=== PATIENT | female | born 1975 | race Caucasian/White ===

== ENCOUNTER 2016-11-19 14:30 | Emergency (ER) | payer OTHER, MEDICARE ==
[~2016-11-19] VITALS: Ht 170.2 cm; Wt 65.3 kg
[~2016-11-19 14:30] MED LIST: ANTIVERT25 MG PO; GEODON60 MG PO; L-LYSINE500 M2 PO; LAMICTAL100 M2 PO; LAMOTRIGINE100 M2 PO; MIRALAX17 G1 PO; MIRENA1 EACH; OXYBUTYNIN CHLOR5 M2 PO; PROAIR HFA8.5 GM INH; ZIPRASIDONE HCL80 M1 PO
[2016-11-19 14:35] VITALS: BP 118/71
--- NOTE | 2016-11-19 15:29 | ED GENERAL ADULT ---
History of Present Illness General Chief Complaint: General Adult Stated Complaint: HIT HEAD A MONTH AGO/COPELAND,ABD PAIN Source: patient Exam Limitations: no limitations Vital Signs & Intake/Output Vital Signs & Intake/Output Vital Signs Date Time Temp Pulse Resp B/P Pulse O2 O2 Flow FiO2 Ox Delivery Rate 11/19 1435 97.7 79 16 118/71 100 Room Air Allergies Coded Allergies: Penicillins (BLOTCHES, HIVES 04/17/16) Sulfa (Sulfonamide Antibiotics) (HIVES 04/17/16) ampicillin (HIVES 04/17/16) azithromycin (RASH 04/17/16) ciprofloxacin (From CIPRO) (HIVES, VOMITING 04/17/16) sulfamethoxazole (From BACTRIM) (HIVES 04/17/16) trimethoprim (From BACTRIM) (HIVES 04/17/16) Reconcile Medications Lamotrigine (Lamictal) 100 MG TABLET 1 TAB PO BID BIPOLAR Levonorgestrel (Mirena) 1 EACH IUD CONTROL (Reported) Lysine HCl (L-Lysine) 1,000 MG TABLET 1 TAB PO DAILY SUPPLEMENT (Reported) Meclizine (Antivert) 25 MG TABLET 1 TAB PO TID PRN DIZZINESS Oxybutynin Chloride 5 MG TABLET 1 TAB PO TID BLADDER (Reported) Polyethylene Glycol 3350 (Miralax) 17 GM POWD.PACK 1 PAC PO BID GI (Reported) dissolve in water Ziprasidone HCl 80 MG CAPSULE 2 TAB PO QPM BIPOLAR (Reported) Triage Note: PT STATES SHE BUMPED HER HEAD A MONTH AGA AND SHE GETS COPELAND FROM IT ON AND OFF. PT STATES HER STOMACH HURTS AND SHE IS HAVING PROBLEMS MOVING HER BOWELS. PT STATES SHE LIFTED A BOX AND THATS WHEN IT ALL STARTED. Triage Nurses Notes Reviewed? yes Onset: Abrupt Duration: intermittent Timing: recent history Severity: moderate Severity Numbers: 5 : No Patient currently breastfeeds: No HPI: Patient is a 41-year-old female who presents to emergency room saying that 1 month ago while lifting approximately 50 pound object she knows acute onset of periumbilical wall pain in which she states that when exercising sometimes her pain is exacerbated. Patient denies any persistent pain and states that lifting objects also makes symptoms worse. Currently patient denies any pain of her abdominal wall. Last bowel movement was within the last 24 hours no blood no melena noted. Patient has not take any medications for symptoms. Patient also states that approximately one month ago she accidentally hit the top part of her head when since she's been complaining of intermittent headaches relieved with ibuprofen. She denies any loss of consciousness denies any neck pain. Denies any fever chills nausea vomiting blurred vision photophobia tinnitus. Family member is present saying that she is acting at baseline. (PORSHA GARZON) Past History Travel History Traveled to [place] past 21 day No Medical History Any Pertinent Medical History? 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 No (PORSHA GARZON) Review of Systems Review of Systems Constitutional: Reports: no symptoms. EENTM: Reports: no symptoms. Respiratory: Reports: no symptoms. Cardiovascular: Reports: no symptoms. GI: Reports: see HPI, abdominal pain. Genitourinary: Reports: no symptoms. Musculoskeletal: Reports: no symptoms. Skin: Reports: no symptoms. Neurological/Psychological: Reports: see HPI, headache. Hematologic/Endocrine: Reports: no symptoms. Immunologic/Allergic: Reports: no symptoms. All Other Systems: Reviewed and Negative (PORSHA GARZON) Physical Exam Physical Exam General Appearance: no apparent distress, alert Comments: Well-developed well-nourished person in no acute distress HEENT: Normal EENT exam, extraocular motion intact, no nystagmus. Pupils equally round and reactive to light and accommodation. Nose is atraumatic. External auditory canal and Tympanic membranes clear. Pharynx normal. No swelling or edema. Neck: Supple, no lymphadenopathy, normal range of motion without pain or tenderness Back: Nontender, no CVA tenderness. Full range of motion Cardiovascular: Regular rate and rhythms no murmurs rubs or gallops, normal JVP Respiratory: Chest nontender. No respiratory distress.breath sounds clear to auscultation bilaterally Abdomen: Soft, nondistended, no appreciable organomegaly. Normal bowel sounds. No ascites Patient was advised to perform a sit up exercise isometric position in the supine position in which no signs of hernia incarceration or strangulation were noted minimal periumbilical point tenderness of the abdominal wall is noted. No right lower quadrant pain no rebound tenderness no peritoneal signs Extremity: No edema, no calf tenderness to palpation, normal and equal pulses. Neuro: Alert oriented x3, motor sensory normal, cranial nerves II through XII grossly intact. Negative Romberg negative cerebellar testing Skin: No appreciable rash on exposed skin, skin is warm and dry. Psych: Mood and affect is normal, memory and judgment is normal. Core Measures ACS in differential dx? No CVA/TIA Diagnosis: No Severe Sepsis Present: No Septic Shock Present: No (PORSHA GARZON) Progress Differential Diagnoses I considered the following diagnoses in my evaluation of the patient: [SBO, hernia, SMA, ICH, postconcussive syndrome, fracture, incarcerated hernia, strangulated hernia] Plan of Care: Current Medications Sig/Mynor Start time Last Medication Dose Stop Time Status Admin Ibuprofen 600 MG ONCE ONE 11/19 1600 AC (Motrin) 11/19 1601 Patient currently looks well no apparent distress and has no concerns of neurological dysfunction cranial nerves were intact no basilar skull fracture signs patient was strongly advised to follow-up with neurology for concerns of postconcussional syndrome No overt signs of hernia was noted on abdominal wall exam which patient was strongly advised to limit provocative physical movements and follow-up with surgeon Dr. Laughlin for further evaluation treatment. Upon discharge patient looks well no apparent distress and will comply with discharge structures and had no questions (PORSHA GARZON) Initial ED EKG: none (PORSHA GARZON) Departure Departure Disposition: HOME OR SELF CARE Condition: Stable Clinical Impression Primary Impression: Abdominal wall pain Secondary Impressions: Post concussion syndrome Referrals: TOMMIE GONZALEZ,TALISHA DAVE MD,RICHA Allen (PCP/Family) MART GONZALEZ,ELIDA Conner Additional Instructions: As discussed begin [id number] ibuprofen 3 tablets of 200 mg equaling 600 mg every 8 hours for headaches. On Sunday follow-up with neurologist Dr. Smith. If symptoms worsen return to emergency room. Please try to avoid physical activities that worsen your abdominal wall pain If symptoms continue after 1 week of your abdominal wall pain follow-up with surgeon Dr. Laughlin for further evaluation treatment. Departure Forms: Customer Survey General Discharge Information (PORSHA GARZON) PA/PARQUETRY FLOOR LAYER Co-Sign Statement Statement: ED Attending supervision documentation- [] I saw and evaluated the patient. I have also reviewed all the pertinent lab results and diagnostic results. I agree with the findings and the plan of care as documented in the PA's/PARQUETRY FLOOR LAYER's documentation. x I have reviewed the ED Record and agree with the PA's/PARQUETRY FLOOR LAYER's documentation. [] Additions or exceptions (if any) to the PAs/PARQUETRY FLOOR LAYER's note and plan are summarized below: [] (RONEL GONZALEZ,CHARAN) Critical Care Note Critical Care Note Critical Care Time: non-applicable (PORSHA GARZON)
== END 2016-11-19 16:17 ==
LOC: ERH 14:30
DX: R10.33 Periumbilical pain (principal); F07.81 Postconcussional syndrome

== ENCOUNTER 2016-12-05 15:31 | Emergency (ER) | payer OTHER, MEDICARE ==
[~2016-12-05] VITALS: Ht 170.2 cm; Wt 64.9 kg
--- NOTE | 2016-12-05 16:05 | ED INFLUENZA/URI COMPLAINT ---
History of Present Illness General Chief Complaint: Upper Respiratory Sx/Fever Stated Complaint: COUGH FEVER Source: patient, old records Exam Limitations: no limitations Vital Signs & Intake/Output Vital Signs & Intake/Output Vital Signs Date Time Temp Pulse Resp B/P Pulse O2 O2 Flow FiO2 Ox Delivery Rate 12/05 1703 99.0 68 16 119/59 99 Room Air 12/05 1624 Room Air 12/05 1539 98.4 83 20 137/83 97 Room Air ED Intake and Output 12/06 0000 12/05 1200 Intake Total 0 Output Total Balance 0 Intake, Oral 0 Patient 143 lb Weight Allergies Coded Allergies: Penicillins (BLOTCHES, HIVES 04/17/16) Sulfa (Sulfonamide Antibiotics) (HIVES 04/17/16) ampicillin (HIVES 04/17/16) azithromycin (RASH 04/17/16) ciprofloxacin (From CIPRO) (HIVES, VOMITING 04/17/16) sulfamethoxazole (From BACTRIM) (HIVES 04/17/16) trimethoprim (From BACTRIM) (HIVES 04/17/16) Reconcile Medications Albuterol Sulfate (Ventolin Hfa) 90 MCG HFA.AER.AD 2 PUF INH Q4-6 PRN PRN WHEEZING/SHORTNESS OF BREATH Benzonatate (Tessalon Perle) 100 MG CAPSULE 1 CAP PO TID PRN COUGH Lamotrigine (Lamictal) 100 MG TABLET 2 TAB PO QPM BIPOLAR (Reported) Levonorgestrel (Mirena) 1 EACH IUD CONTROL (Reported) Linaclotide (Linzess) 145 MCG CAPSULE 1 CAP PO DAILY CONSTIPATION (Reported) Lysine (L-Lysine) 500 MG TABLET 2 TAB PO DAILY SUPPLEMENT (Reported) [place]-3 Fatty Acids/Fish Oil (Fish Oil 1,200 MG Softgel) 360 MG-1,200 MG CAPSULE.DR 1 CAP PO DAILY SUPPLEMENT (Reported) Oxybutynin Chloride (Oxybutynin Chloride ER) 15 MG TAB.ER.24 1 TAB PO QAM BLADDER (Reported) Saccharomyces Boulardii (Florastor) 250 MG CAPSULE 1 CAP PO DAILY PROBIOTIC ( Reported) Ziprasidone HCl 80 MG CAPSULE 2 TAB PO QPM BIPOLAR (Reported) Triage Note: RECEIVED 41 YO FEMALE C/O YELLOW PRODUCTIVE COUGH X ONE AND A HALF WEEKS WITH 102.7 TEMP 3-4 DAYS AGO. PT WITH HX OF ASTHMA, C/O MILD WHEEZING AND SOB. DIMINISHED BREATH SOUNDS LEFT SIDE. NO C/O CP. Triage Nurses Notes Reviewed? yes : No Patient currently breastfeeds: No HPI: Patient is a 41-year-old female presents complaining of cough. Cough onset approximately 1.5 weeks ago. Cough with yellow sputum production and associated wheezing. Patient has been using her albuterol inhaler with moderate improvement. Fever up to 102.74 days ago. Symptoms are currently mild, have been moderate to severe. Patient denies chest pain. (MATTHIAS AVENDANO) Past History Travel History Traveled to [place] past 21 day No Medical History Any Pertinent Medical History? 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 No (MATTHIAS AVENDANO) Review of Systems Review of Systems Constitutional: Reports: fever (RESOLVED). EENTM: Reports: no symptoms. Respiratory: Reports: cough, short of breath, sputum production, wheezing. Cardiovascular: Denies: chest pain. GI: Denies: abdominal pain, vomiting. Genitourinary: Reports: no symptoms. Musculoskeletal: Reports: no symptoms. Skin: Reports: no symptoms. Neurological/Psychological: Reports: no symptoms. Hematologic/Endocrine: Reports: no symptoms. Immunologic/Allergic: Reports: no symptoms. (MATTHIAS AVENDANO) Physical Exam Physical Exam General Appearance: well developed/nourished, alert, awake Head: atraumatic, normal appearance Eyes: Bilateral: normal appearance, PERRL, EOMI. Ears, Nose, Throat: normal ENT inspection, moist mucous membrane, hearing grossly normal Neck: normal inspection, supple, full range of motion Respiratory: normal breath sounds, no respiratory distress, lungs clear Cardiovascular: regular rate/rhythm Back: normal inspection, normal range of motion Extremities: normal inspection, normal capillary refill, normal range of motion, no edema Neurologic/Psych: no motor/sensory deficits, awake, alert, oriented x 3, normal gait, normal mood/affect Skin: intact, normal color, warm/dry Lymphatic: no anterior cervical roman Core Measures Severe Sepsis Present: No Septic Shock Present: No (MATTHIAS AVENDANO) Progress Differential Diagnosis: influenza, pneumonia, pharyngitis, sinusitis, bronchitis Plan of Care: Orders Procedure Date/time Status XRY-CHEST XRAY, PA AND LATERAL 12/05 1602 Active Diagnostic Imaging: Viewed by Me: Radiology Read. Discussed w/RAD: Radiology Read. Radiology Impression: PATIENT: JENNY COLÓN PRESENT AGE: 41 PATIENT ACCOUNT NO: [id number] : 74 LOCATION: [facility] ORDERING PHYSICIAN: MATTHIAS GALE SERVICE DATE: 12/05/16-1602 EXAM TYPE: RAD - XRY-CHEST XRAY, PA AND LATERAL EXAMINATION: XR CHEST CLINICAL INFORMATION: Cough , wheezing, sputum production and fevers. Assess for pneumonia. COMPARISON: Chest x-ray 10/18/2010. TECHNIQUE: PA and lateral views of the chest were obtained. FINDINGS: The lung paulson are well expanded and appear clear bilaterally. The cardiac silhouette is normal. There are no pleural effusions or pneumothorax. The central pulmonary vasculature is normal. The hilar regions appear normal. There are no acute osseous findings. IMPRESSION: 1. There are no acute cardiopulmonary findings. DICTATED BY: JACOB COHEN MD DATE/TIME DICTATED: 12/05/161631 ELEVATOR SERVICEMAN:CRISPIN DATE/TIME TRANSCRIBED:12/05/161631 CONFIDENTIAL, DO NOT COPY WITHOUT APPROPRIATE AUTHORIZATION. <Electronically signed in Other Vendor System> SIGNED BY: JACOB COHEN MD 12/05/16 1643 Initial ED EKG: none (MATTHIAS AVENDANO) Departure Departure Time of Disposition: 1654 Disposition: HOME OR SELF CARE Condition: Stable Clinical Impression Primary Impression: Viral upper respiratory infection Referrals: TENZIN GONZALEZ,RICHA Allen (PCP/Family) Additional Instructions: Drink plenty fluids and rest. Follow-up with her primary care doctor if no improvement within 1-2 days. Return to the emergency department if worsening of symptoms. Departure Forms: Customer Survey General Discharge Information Prescriptions: Current Visit Scripts Benzonatate (Tessalon Perle) 1 CAP PO TID PRN COUGH #21 CAP Albuterol Sulfate (Ventolin Hfa) 2 PUF INH Q4-6 PRN PRN WHEEZING/SHORTNESS OF BREATH #1 INHAL (HEILBRUNN PA,MATTHIAS) PA/RN FACULTY Co-Sign Statement Statement: ED Attending supervision documentation- [] I saw and evaluated the patient. I have also reviewed all the pertinent lab results and diagnostic results. I agree with the findings and the plan of care as documented in the PA's/RN FACULTY's documentation. [X] I have reviewed the ED Record and agree with the PA's/RN FACULTY's documentation. [] Additions or exceptions (if any) to the PAs/RN FACULTY's note and plan are summarized below: [] (KHUSHBU GONZALEZ,MAY)
[2016-12-05] MEDS ORDERED: LAMICTAL100 M2 PO (16:43)
[2016-12-05] MEDS ORDERED: OXYBUTYNIN CHLO15 M1 PO (16:43)
--- NOTE | 2016-12-05 16:43 | RADIOLOGY REPORT ---
EXAMINATION: XR CHEST CLINICAL INFORMATION: Cough, wheezing, sputum production and fevers. Assess for pneumonia. COMPARISON: Chest x-ray 10/18/2010. TECHNIQUE: PA and lateral views of the chest were obtained. FINDINGS: The lung paulson are well expanded and appear clear bilaterally. The cardiac silhouette is normal. There are no pleural effusions or pneumothorax. The central pulmonary vasculature is normal. The hilar regions appear normal. There are no acute osseous findings. IMPRESSION: 1. There are no acute cardiopulmonary findings.
[2016-12-05] MEDS ORDERED: LINZESS145 MC1 PO (16:44)
[2016-12-05] MEDS ORDERED: FISH OIL 1,2001 EAC1 PO (16:44)
[2016-12-05] MEDS ORDERED: FLORASTOR250 M1 PO (16:45)
[2016-12-05] MEDS ORDERED: TESSALON PERLE100 M1 PO (16:56)
[2016-12-05] MEDS ORDERED: VENTOLIN HFA18 GM INH (16:56)
[2016-12-05 17:03] VITALS: BP 119/59
== END 2016-12-05 17:03 ==
LOC: ERH 15:31
DX: J06.9 Acute upper respiratory infection, unspecified (principal); Z87.891 Personal history of nicotine dependence

== ENCOUNTER 2017-02-27 13:55 | Emergency (ER) | payer OTHER, MEDICARE ==
[~2017-02-27] VITALS: Ht 170.2 cm; Wt 67.1 kg
[~2017-02-27 13:55] MED LIST changes: +FISH OIL 1,2001 EAC1 PO; +FLORASTOR250 M1 PO; +LINZESS145 MC1 PO; +OXYBUTYNIN CHLO15 M1 PO; +TESSALON PERLE100 M1 PO; +VENTOLIN HFA18 GM INH
[2017-02-27 14:01] VITALS: BP 125/77
== END 2017-02-27 14:19 | disposition admitted as inpatient to this hospital (09) ==
LOC: ERH 13:55
DX: R21 Rash and other nonspecific skin eruption (principal); R60.0 Localized edema

== ENCOUNTER 2017-02-28 20:08 | Inpatient (IN) | payer OTHER, MEDICARE ==
[~2017-02-28] VITALS: Ht 165.1 cm; Wt 65.3 kg
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
--- NOTE | 2017-02-28 20:27 | NUR ---
PT AMBULATORY TO [facility]. PT APPEARS ANXIOUS AND HAS RAMBLING SPEECH. SECURITY AT BEDSIDE FOR WANDING
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
--- NOTE | 2017-02-28 21:10 | NUR ---
PT UNWILLING TO CHANGE INTO BLUE SCRUBS WITH MULTIPLE ATTEMPTS MADE. PT STATES "I DON'T NEED TO BE HERE" AND IS TALKING ABOUT HOW "HER FAMILY IS NOT RIGHT FOR HER" AND "SHE DOESN'T NEED A MAN WHO IS NOT NICE TO HER". SITTER AT BEDSIDE.
--- NOTE | 2017-02-28 21:25 | NUR ---
PT RETURNED FROM U/S AND WAS CHANGED INTO BLUE SCRUBS
--- NOTE | 2017-02-28 21:52 | ULTRASOUND REPORT ---
EXAMINATION: US TRIPLEX LOWER EXTREMITY, LEFT CLINICAL INFORMATION: Left lower extremity pain. COMPARISON: None. TECHNIQUE: Color-flow triplex imaging with spectral analysis and compression Doppler were performed on the lower extremity. FINDINGS: Respiratory variation, normal compression and augmented flow are noted throughout the left lower extremity. The visualized common femoral vein, femoral vein, profunda femoral vein, popliteal vein and midcalf peroneal and posterior tibial venous segments show no evidence of deep venous thrombosis. There is no West's cyst. IMPRESSION: Normal triplex scan without evidence of deep venous thrombosis involving the lower extremity.
--- NOTE | 2017-02-28 22:03 | NUR ---
LABS DRAWN AND SENT (2 SST AND LAV)
--- NOTE | 2017-02-28 22:04 | NUR ---
PT'S MOTHER CALLED, SHAYLA, CAN BE REACHED AT [phone].
[2017-02-28 22:07] LABS: ABSOLUTE BASOPHIL COUNT 0 /CUMM (0.0-0.2); ABSOLUTE EOSINOPHIL COUNT 0.1 /CUMM (0.0-0.7); ABSOLUTE GRANULOCYTE CT 7.5 /CUMM (1.4-6.5); ABSOLUTE LYMPH COUNT 1.7 /CUMM (1.2-3.4); ABSOLUTE MONOCYTE COUNT 0.8 /CUMM (0.10-0.60); BASOPHIL % 0.5 % (0.0-2.0); EOSINOPHIL % 0.5 % (0-5); GRANULOCYTE % 74.3 % (42.2-75.2); HEMATOCRIT 31.4 % (37-47); MEAN CORPUSCULAR HGB 31.9 PG (27.0-31.0); MEAN CORPUSCULAR HGB CONC 34.1 G/DL (33.0-37.0); MEAN CORPUSCULAR VOLUME 93.6 FL (81.0-99.0); MEAN PLATELET VOLUME 8.2 FL (7.4-10.4); PLATELET COUNT 238 /CUMM (130-400); RED BLOOD CELL CT 3.35 /CUMM (4.20-5.40); WHITE BLOOD CELL COUNT 10.1 /CUMM (4.8-10.8)
--- NOTE | 2017-02-28 22:52 | NUR ---
PT REMAINS SITTING ON STRETCHER IN HALLWAY TALKING TO HERSELF. SITTER AT BEDSIDE.
--- NOTE | 2017-03-01 02:35 | NUR ---
PT RESTING ON STRETCHER MUMBLING INCOMPREHENSIBLE WORDS. PT APPEARS CALM AT THIS TIME, NO DISTRESS NOTED. SITTERS IN PLACE.
--- NOTE | 2017-03-01 05:26 | NUR ---
PT CONTINUES TO REST ON STRETCHER, STARING AT CEILING AND MUMBLING TO HERSELF. NO APPARENT DISTRESS NOTED. SITTER REMAINS IN PLACE. WILL CONTINUE TO MONITOR
--- NOTE | 2017-03-01 06:39 | NUR ---
PT REMAINS AWAKE ON STRETCHER. PT CONTINUES TO MUMBLE TO HERSELF. NO DISTRESS NOTED. WILL CONTINUE TO MONITOR.
--- NOTE | 2017-03-01 07:48 | NUR ---
PT REMAINS AWAKE AT THIS TIME MUMBLING TO HERSELF ON STRETCHER STATES "I AM SO HUNGRY" BREAKFAST TRAY PROVIDED PT NEEDS TO GIVE URINE SAMPLE WHEN ABLE - PT AND SITTER REMINDED OF SAME AWAITING INITIAL CRISIS EVAL TODAY
--- NOTE | 2017-03-01 12:11 | NUR ---
PT REFUSED EKG AT THIS TIME
--- NOTE | 2017-03-01 13:07 | NUR ---
PT MEDICATED WITH FISH OIL, PROBIOTIC AND LAMICTAL 25MG PER EMAR. PT REFUSED HER DITROPAN, STATING HER DOSE IS HIGHER THAN 5MG. ADVISED PT THAT IN ORDER TO GO TO [facility]PS SHE MUST HAVE AN EKG. PT AGREED TO HAVE IT DONE IN A ROOM, NOT IN HALLWAY. SITTER AY BEDSIDE.
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
--- NOTE | 2017-03-01 14:15 | NUR ---
PT REFUSING EKG AT THIS TIME.
--- NOTE | 2017-03-01 16:00 | NUR ---
CALLED AND GAVE REPORT TO ANALY
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
[2017-03-01 17:11] VITALS: BP 136/74
[2017-03-01 17:29] VITALS: BP 136/74
--- NOTE | 2017-03-01 19:39 | NUR ---
Pt placed on a 1:1 immediately upon admission to the unit, presents on minimal to no insight, poor judgement, paranoid, delusional, minimizing admission and redirctable at times but can appear anxious and agitated with some limit setting. When asked directly denies SI/HI/hallucinations and feels safe on the unit, will not harm self "I'm not like that, I'm never like that" and would inform staff if it changed. Pt was hyperverbal and tangential and rarely allowed this RN to speak and medication reconciliation not complete due to pt abruptly and impulsively exiting assessment interview to call father to pick her up and wanting to leave and not accepting any reasonable explaination, Dr. Hogan updated & 1:[address] Laird's ansering service notified for H&P @ [id number]. Skin is mckeon in complexion and minor bloched intact abroasions noted to face and denied any other alterations to skin not visible.
[2017-03-01 20:02] VITALS: BP 131/68
--- NOTE | 2017-03-01 22:46 | NUR ---
Patient able to orient self to unit and reason for sitter. Patient attempted to elope but was stopped by security. Patient refused PRN medication of neurontin and suspicious of reason for the medication. Patient "annoyed" by sitter presence. Slept most of shift up once for water.
--- NOTE | 2017-03-02 06:13 | NUR ---
THIS PATIENT IS ON A 1 TO 1 FOR ATTEMPTING TO ELOPE AT 1900 ON SUNDAY NIGHT HER FATHER WAS PARTING. SHE IS FOCUSED ON DISCHARGING SOON POSSIBLE. THE PATIENT REMAINED IN BED THROUGHOUT THE NIGHT WITH NO FURTHER ATTEMPTS TO LEAVE. SHE APPEARS TO BE SOMEWHAT LEARNING DISABLED.
[2017-03-02 07:36] VITALS: BP 143/57
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
[2017-03-02 12:45] VITALS: BP 124/77
--- NOTE | 2017-03-02 14:18 | NUR ---
PT VISIBLE IN THE [place] TODAY. PT DID NOT GO TO PLANNING MEETING BUT WAS ABLE TO GO TO A FEW OTHER GROUPS TODAY. SHE HAS SOME INTERACTIONS WITH OTHERS, AND REMAINING SAFE WHILE ON THE UNIT. PT WAS UPSET IN THE BEGINNING OF THE DAY BECAUSE SHE THOUGHT SHE WAS LEAVING BUT ABLE TO STAY IN BEHAVIORAL CONTROL FOR THE MOST PART. PT DENIES THOUGHTS TO HURT HERSELF WHEN ASKED.
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
[2017-03-02 15:42] VITALS: BP 125/73
--- NOTE | 2017-03-02 15:43 | SOCIAL WORKER PROG NOTE PSYCH ---
Social Work Progress Note Progress Note Patient was seen individually. I had been informed that patient wanted to leave, and that she wanted to file a probable cause hearing. I also wanted to complete a social history for this patient. Our discussion started off very well, because patient has known me for many years, and used to call crisis very often. She answered a few basic questions, but, then, said that she did not know why I wanted to know these things, so I stopped the questioning for the social history at that point. I then moved on to her wish to push for a probable cause hearing. At that point patient became even more upset, and said "why can't I just leave ?'...and "I don 't want to sign anything. She was getting agitated, and walked away. I did not wish to make the situation worse at that point, so I let her move away , and she kept her distance the rest of the afternoon, except to stop me briefly to say "there's nothing wrong with me".
[2017-03-02 19:51] VITALS: BP 117/55
--- NOTE | 2017-03-03 04:08 | NUR ---
CONFUSED at times COOPERATIVE WITH CARE NOW. EARLIER IN THE SHIFT wanted to go0 home.
[2017-03-03 08:53] VITALS: BP 107/68
--- NOTE | 2017-03-03 11:48 | CP SOUTH PROGRESS NOTE PSYCH ---
Psych (Inpt) Progress Note Progress Note Include the following elements, when applicable: Involvement in the active treatment of the patient with behavioral observations of the patient and the patient's response to the treatment. Review of the ongoing treatment process in the context of the treatment plan. Indication of how multi-disciplinary staff members are carrying out the treatment plan. Plans for future interventions and recommendations for revision of the treatment plan. Liaison with other physicians/providers. Progress Note: Patient seen chart reviewed d/w nursing staff Overnight patient had episodes of agitation requiring prn haldol/ativan with good effect. She asking about go home "i am fine to leave". She was observed mumbling to self as she walked out of office. speech is pressured and thoughts are disorganized. she denies si/hi or overt psychosis. Medication compliant no se reported does not want any changes to her current regimen. BP continue current tx plan will add prn haldol/ativan for agitation, renew 1;1 for safety.
[2017-03-03 12:12] VITALS: BP 122/69
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
--- NOTE | 2017-03-03 13:43 | NUR ---
PT MONITORED ON ONE TO ONE STATUS FOR SAFETY. SHE IS IRRITABLE AT TIMES AND IS OBSERVED TALKING TO HERSELF. SHE IS COMPLIANT WITH HER MED REGIME AND WHEN ASKED SHE DENIED ANY THOUGHTS OF SUICIDE OR SELF HARM.PT WAAS NOT AGITATED AND DID NOT TRY TO LEAVE THE UNIT
[2017-03-03 16:06] VITALS: BP 127/75
--- NOTE | 2017-03-03 17:54 | NUR ---
PT IS OFTEN IN MILIEU, INTERACTING WELL WITH STAFF. LIMITED INTERACTION WITH PEERS. SLIGHTLY ISOLATIVE/WITHDRAWN. APPEARS TO EXPRESS SOME DELUSIONAL/PARANOID THOUGHTS AND IDEAS. MOOD IS NOT STABLE, COMMUNICATION IS ORGANIZED AND APPEARS NORMAL IN ALL RESPECTS, AND APPETITE IS REDUCED. PT DENIES SI AT THIS TIME.
[2017-03-03 19:52] VITALS: BP 117/61
--- NOTE | 2017-03-04 05:45 | NUR ---
PATIENT WAS AWAKE SEVERAL TIMES DURING THE NIGHT, BUT REFUSED PRN MEDICATION; SHE STATED "NO, NO MEDS, I'M JUST GOING TO GO TO THE BATHROOM, THAT'S ALLOWED ISN'T IT?".
[2017-03-04 07:48] VITALS: BP 131/74
--- NOTE | 2017-03-04 11:23 | NUR ---
PT WAS AGITATED THIS MORNING..TEARFUL..ASKING TO LEAVE AND RESISTIVE TO TAKING MEDS. STAFF ABLE TO CONVINCE PT TO TAKE PRN MEDS WHICH WERE EFFECTIVE AFTER A SHORT TIME. SHE IS SEEN TALKING TO HERSELF AT TIMES AND SHE MADE NUMEROUS CALLS TO HER FAMILY TO ASK THEY COME GET HER.SHE DENIED ANY SUICIDAL THOUGHTS WHEN ASKED
[2017-03-04 12:18] VITALS: BP 134/88
--- NOTE | 2017-03-04 12:37 | CP SOUTH PROGRESS NOTE PSYCH ---
Psych (Inpt) Progress Note Progress Note Include the following elements, when applicable: Involvement in the active treatment of the patient with behavioral observations of the patient and the patient's response to the treatment. Review of the ongoing treatment process in the context of the treatment plan. Indication of how multi-disciplinary staff members are carrying out the treatment plan. Plans for future interventions and recommendations for revision of the treatment plan. Liaison with other physicians/providers. Progress Note: Patient seen chart reviewed d/w nursing staff She has required several prn haldol/ativan for disorganization irritable. Today she was observed mumbling to self, pressured askign about dc, she repeatedly entered writers room several times while radio script writer was with other patients asking about using the phone as her office. She has been compliant with her other medications, denies se. Overnight she was awake numerous times. CF, ASA short hair dressed in hospital gown, +pmr, intrusive, pressured speech, euphoric manic. disorganized, denies overt psychosis or si/hi. I/j both limited BP manic continue to encourage prn haldol ativan which has been having a better effect than geodon, she is overly concerned with weight gain. no changes
[2017-03-04 16:33] VITALS: BP 114/71
--- NOTE | 2017-03-04 17:56 | NUR ---
PT IS COOPERATIVE WITH STAFF AND PEER,S AND COMPLIANT WITH UNIT RULES. BOTH IN AND OUT OF MILIEU, INTERACTING TO AN EXTENT WITH PEERS. APPEARS SLIGHTLY ANXIOUS AT TIMES. MOOD IS NOT STABLE, AFFECT IS EUTHYMIC, BUT CAN APPEAR BRIGHT AT TIMES. COMMUNICATION IS ORGANIZED AND APPEARS NORMAL IN ALL RESPECTS. EXPRESSES ABSTRACT THOUGHTS AND IDEAS ON OCCASSION. APPETITE IS NORMAL. PT DENIES SI AT THIS TIME.
[2017-03-04 19:49] VITALS: BP 120/77
--- NOTE | 2017-03-05 04:46 | NUR ---
SLEPT WELL SITTER WITH IN EYE SIGHT.\
[2017-03-05 07:43] VITALS: BP 123/74
[2017-03-05 12:08] VITALS: BP 119/76
--- NOTE | 2017-03-05 13:25 | NUR ---
PT HAS BEEN COMPLIANT AND COOPERATIVE WITH UNIT RULES THIS SHIFT. PT REMAINS ON 1:1 BUT HAS NOT MADE ANY ATTEMPTS TO ELOPE. PT IS OUT IN THE COMMUNITY, MINIMAL INTERACTION WITH PEERS. PT CAN BE SEEN TALKING TO SELF AT TIME. PT IS ATTENDING GROUPS. PT COMMUNICATION IS CLEAR TODAY. PT DENIES SI THOUGHTS.
[2017-03-05 15:12] VITALS: BP 134/76
--- NOTE | 2017-03-05 19:18 | SOCIAL WORKER PROG NOTE PSYCH ---
Social Work Progress Note Progress Note This Sw met with pt. Pt expressed wanting to leave the hospital. She was offered to sign a probable cause hearing request, however, reported that she did not want to do so and did not want to meet with the unclaimed property officer. Patient quickly moved from topic to topic. Pt stated that she is not in need of counseling or meeting with a social media manager and would like to return to her outpatient psychiatrist. She was unsure of his name, but stated that he works on [employer] in [place]. Pt reported that she felt great, however displayed tearfulness at times of this discussion. She denied SI/HI/AH/VH. Pt reported not having any supports other than her psychiatrist. She stated that she is enjoying groups "but I'd rather go home." She later returned to supports and identified some family, however did not want her father to learn that she was buying a convertable [place]. She stated that, regarding this car and her money , "He would just want to take them away from me." Pt quickly ended this discussion and stated that she felt she had shared everything and there was nothing left to talk about.
[2017-03-05 19:52] VITALS: BP 122/66
--- NOTE | 2017-03-05 20:42 | CP SOUTH PROGRESS NOTE PSYCH ---
Psych (Inpt) Progress Note Progress Note Include the following elements, when applicable: Involvement in the active treatment of the patient with behavioral observations of the patient and the patient's response to the treatment. Review of the ongoing treatment process in the context of the treatment plan. Indication of how multi-disciplinary staff members are carrying out the treatment plan. Plans for future interventions and recommendations for revision of the treatment plan. Liaison with other physicians/providers. Progress Note: PSYCHIATRIST NOTE, 03/05/2017: I discussed this patient's presentation and progress to date, current mental status, treatment and discharge planning with staff team today in the daily morning ITTM and medical student, Hima, and I met with her together in individual session. Patient was pressured in speech and tangential to occasionally loose in expressed thought, lacking insight/denying she has "any" problems/issues but that everything "bad" is a result of her family's intrusions into her own life and self-choice. Patient said she wanted to break up with her current boyfriend but that her family was opposed to this and thereby causing her unnecessary difficulties of which her current admission to hospital is only a part. The one bright spot amongst her family members patient identified as her sister Ni; she is willing to have Ni come in for a meeting with us as soon as this can be arranged. 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 Patient in no way appears sufficiently stable for discharge at this time. Switchover to a more potent neuroleptic and possibly addition of a second primary mood stabilizer would likely be helpful but doubtfully accepted by patient at this time. Patient reports confidence in her psychiatrist in [facility], but told us she had only been seeing him for "two months" now; previously she had treated with Audrey Huggins M.D., of [facility], but may have been between treaters for some time.
--- NOTE | 2017-03-05 21:55 | NUR ---
PT IS VISIBLE ON UNIT, VISITNG WITH BOYFRIEND AND FATHER. AFTER HER VISITORS LEFT, PT SAT QUIETLY IN LOUNGE FOR AWHILE. MINIMAL INTERACTION WITH PEERS OR STAFF. RETREATED TO BED FAIRLY EARLY. COOPERATIVE AND COMPLIANT WITH STAFF. NO COMPLAINTS OR SI REPORTED. PT HAS AN ANXIOUS MOOD AND CONSTRICTED AFFECT.
--- NOTE | 2017-03-06 05:38 | NUR ---
PT QUIET, MOSTLY IN BED FOR EVENING. PT UP A FEW TIMES TO TOILET AND "TO CHECK THINGS OUT". PT SOMEWHAT VIGILANT BUT DENIES PARANOIA.
[2017-03-06 07:33] VITALS: BP 123/76
[2017-03-06 12:16] VITALS: BP 118/71
--- NOTE | 2017-03-06 13:39 | NUR ---
PT STANDING CLOSE TO THE DOOR, TALKING TO HERSELF, YET APPEARS TO HAVE A STABLE MOOD. PT IS NOT AGITATED, SHE IS CALM & COOPERATIVE. NOT ATTENDING ANY GROUPS, PT TENDS TO WANDER THE UNIT AND KEEP TO HERSELF. EATING BREAKFAST AND LUNCH. VS ARE STABLE AND DENIES ANY SI/HI TO THIS MHW.
--- NOTE | 2017-03-06 14:19 | SOCIAL WORKER PROG NOTE PSYCH ---
Social Work Progress Note Progress Note Pt wants to go home, she offers "Im not a bad person, and I didn't do anything wrong", she was calm, and speech was appropriate, she remembers working with me in the past at [facility], and reported "I know you're a friend", as the convsersation went on, she talked about here eagerness to get her car, and reports she will "be safe and responsible when driving", she then laughed and stated "maybe Ill even drive to the beach", and we had a brief conversation of what beach she likes. She has concerns abotu peers on the unit, and it is unclear how she percieves contact with other peers, as she often feels alienated and misunderstood. She was alert, oriented and pleasant. As the conversation ended, she clasped her hands and told me a story aout her grandmother, and how she misses her. She was also whispering answers to herself , of questions she was asking.
--- NOTE | 2017-03-06 14:39 | SOCIAL WORKER PROG NOTE PSYCH ---
Social Work Progress Note Progress Note Pt signed release for outaptient , at this time she will not sign other releases for her sisters or family.
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
[2017-03-06 15:57] VITALS: BP 124/75
--- NOTE | 2017-03-06 18:50 | NUR ---
PT IS COOPERATIVE WITH STAFF AND PEERS, AND COMPLIANT WITH UNIT RULES. OFTEN IN MILIEU, PT IS SLIGHTLY WITHDRAWN. PT APPEARS HIGHLY ANXIOUS AND HAS ATTEMPTED OPEN UNIT DOOR PRESUMABLY TO ELOPE, BUT COULD NOT OPEN IT. MOOD IS STABLE, AFFECT APPEARS EUTHYMIC, COMMUNICATION IS ORGANIZED AND APPEARS NORMAL IN ALL RESPECTS, AND APPETITE IS NORMAL. PT DENIES SI AT THIS TIME.
[2017-03-06 19:53] VITALS: BP 142/82
--- NOTE | 2017-03-07 06:30 | NUR ---
PATIENT WAS BRIEFLY AWAKE, WENT TO BATHROOM, OTHERWISE SLEPT ALL NIGHT.
[2017-03-07 08:08] VITALS: BP 126/81
--- NOTE | 2017-03-07 10:20 | NUR ---
PT IS TENTATIVELY SCHEDULED FOR [place] TODAY [place] [facility] [place] SHE REPORTS AND DEMONSTRATES IMPROVEMENT IN HER MOOD AND ABILITY TO FUNCTIION. PT DENIES ANY THOUGHTS OF SUICIDE OR SELF HARM.SHE IS COMPLIANT WITH HER MED REGIME AND WILL RETURN TO HER PRIVATE THERAPIST AND MD FOR FOLLOW UP. PT IS GIVEN EDUCATION R/T MANAGING HER MOOD D/O AND ON PREVENTING SUICIDE
[2017-03-07 12:29] VITALS: BP 1126/71
[2017-03-07] MEDS ORDERED: LAMICTAL25 M1 PO (13:40)
--- NOTE | 2017-03-07 13:47 | CP SOUTH PROGRESS NOTE PSYCH ---
Psych (Inpt) Progress Note Progress Note Include the following elements, when applicable: Involvement in the active treatment of the patient with behavioral observations of the patient and the patient's response to the treatment. Review of the ongoing treatment process in the context of the treatment plan. Indication of how multi-disciplinary staff members are carrying out the treatment plan. Plans for future interventions and recommendations for revision of the treatment plan. Liaison with other physicians/providers. Progress Note: PSYCHIATRIST NOTE, 03/07/2017: I discussed this patient's slow progress to date, current mental status, treatment and discharge planning with staff team today in the daily morning ITTValeriano and Bailey Anderson LCSW, and I met with her together in individual session. Patient was significantly more tangential, scattered and loose than I found her to be yesterday, 03/06/2017, and at some level she recognized this herself and did not protest not being able to discharge today. 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 However, she did not accept my recommendation that her current maintenance dose of Geodon be increased (from 160mg/day) by 20-40mg a day "until you speak with 'Dr. Steele' [her outpatient psychiatrist, Dr. Abdullahi Casillas]" about the proposed change; we have been leaving messages with his office but received no call back as of today; we will continue our efforts to connect with him. For now, I left a PRN Geodon, 20mg order in case patient changes her mind re a higher dose. We spoke again about the need to organize a family meeting as soon as possible; at this point, patient identified her father as the family member with whom she is willing to meet; Ms. Anderson will try to set up a meeting before end of this week. I feel frustrated that it is not possible to introduce a primary mood stabilizer in addition to the Lamictal, particularly given the necessary very slow upward titration of the latter which is required for safety/avoidance of potentially extremely serious side effects/sensitivity reaction.
--- NOTE | 2017-03-07 13:48 | DISCHARGE SUMMARY REPORT-PSYCH ---
Visit Information Visit Dates/Diagnosis' Admission Date: 03/01/17 Discharge Date: 03/14/17 Reason for Admission: " Psy Discharge Primary Diag: Bipolar I Disorder; MRE Manic with psychotic f. Psy Discharge Secondary Diag: asthma IBS, by hx overactive bladder, by hx Hospital Course Course Allergies: Coded Allergies: Penicillins (BLOTCHES, HIVES 04/17/16) Sulfa (Sulfonamide Antibiotics) (HIVES 04/17/16) ampicillin (HIVES 04/17/16) azithromycin (RASH 04/17/16) ciprofloxacin (From CIPRO) (HIVES, VOMITING 04/17/16) sulfamethoxazole (From BACTRIM) (HIVES 04/17/16) trimethoprim (From BACTRIM) (HIVES 04/17/16) Discharge HBIPS - Tobacco Use Treatment Offered - EtOH/Drug Use D/O Treatment Offered Metabolic Screening - Screen if on a Neuroleptic Medication - Metabolic screening should include: - Blood Pressure, BMI, Glucose or Hgb A1c, & a - Lipid profile from within the past 365 days. Discharge Instructions General Discharge Information Discharge Medications: I called into [facility], [facility], on day of discharge, 03/14/2017: Geodon, 80mg: ii daily at dinnertime; #60 with no refill (clarify thoughts/ stabilize moods) Geodon, 20mg: i PRN racing thoughts, up to 2 doses/day; #60 with no refill (patient currently prescribed 160-200mg/day of Geodon) Lamictal, 25mg: ii daily in AM (50mg/day); #60 with no refill (stabilize mood ) (patient has never been a smoker and does not drink alcohol) patient has sufficient supplies to continue taking: Ditropan, 5mg 3x/day (overactive bladder) probiotic, i cap daily fish oil, 1,050mg daily Feosol, 325mg daily
[2017-03-07 16:06] VITALS: BP 121/62
--- NOTE | 2017-03-07 18:02 | NUR ---
PT IS OFTEN IN MILIEU, INTERACTING MINIMALLY WITH OTHERS. APPEARS HIGHLY ANXIOUS. COOPERATIVE WITH STAFF AND PEERS, AND COMPLIANT WITH UNIT RULES. MOOD IS STABLE, AFFECT APPEARS FLAT/CONSTRICTED, COMMUNICATION IS ORGANIZED AND APPEARS NORMAL IN ALL RESPECTS, AND APPETITE IS NORMAL. PT DENIES SI AT THIS TIME.
--- NOTE | 2017-03-07 19:27 | SOCIAL WORKER PROG NOTE PSYCH ---
See Addendum Social Work Progress Note Progress Note 2:30pm This marketing copywriter met with pt who signed a CAROLE for her outpatient psychiatrist and stated that she was only willing to meet with him and not attend any other form of behavioral health services, such as IOP. She also reported that she utilizes [facility] as a PCP, however, did not have the need to schedule any appointments upon discharge from [facility]. 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 Pt discussed plans to walk back to her home, in [place], upon discharge, despite not having keys to her home. As discussed with Dr. Loredo, ongoing treatment in an inpt setting is indicated. Pt was willing to schedule a family session with her father, who will be contacted to schedule a date/time. Case will be discussed further during team meeting tomorrow.
[2017-03-07 19:34] VITALS: BP 105/69
[2017-03-08 07:57] VITALS: BP 111/67
[2017-03-08 12:22] VITALS: BP 122/75
--- NOTE | 2017-03-08 13:32 | NUR ---
PT IS COMPLIANT AND COOPERATIVE. MOOD IS STABLE WITH A CONSTRICTED AFFECT. PT APPEARS ANXIOUS/DISTRESSED AT TIMES- WILL STATE THAT SHE IS "OKAY" "GREAT". PT DENIES SI AT THIS TIME, NO COMPLAINTS OFFERED. PT NOTED TO BE PACING AROUND UNIT- APPEARS GUARDED. NO OBSERVATIONS OF PT RESPONDING TO INTERNAL STIMULI. PT SPEECH IS RAPID, PRESSURED AND PT CAN BE TANGENTIAL. PT IS PRESENT ON THE UNIT- HAS MINIMAL INTERACTION WITH OTHERS. VITALS ARE STABLE, APPETITE IS GOOD.
[2017-03-08 16:20] VITALS: BP 125/66
--- NOTE | 2017-03-08 16:55 | CP SOUTH PROGRESS NOTE PSYCH ---
Psych (Inpt) Progress Note Progress Note Include the following elements, when applicable: Involvement in the active treatment of the patient with behavioral observations of the patient and the patient's response to the treatment. Review of the ongoing treatment process in the context of the treatment plan. Indication of how multi-disciplinary staff members are carrying out the treatment plan. Plans for future interventions and recommendations for revision of the treatment plan. Liaison with other physicians/providers. Progress Note: PSYCHIATRIST NOTE, 03/08/2017: I discussed this patient's slow progress to date, current mental status, treatment and discharge planning with staff team today in the daily morning ITTValeriano and Bailey Anderson LCSW, and I met with her in individual session. Patient was even more pressured and labile today than she had been when in met with her yesterday; however, she is still resisting any increase or change to her Geodon (and has not yet utilized any PRN's of Geodon) until I speak with her "Dr. Steele" and I have not been able to connect with him yet despite leaving messages on his voicemal (he may be away) but will continue to try going forward. The difficulty is that patient's condition appears to possibly be worsening while she at the same time sees this herself but refuses any changes/interventions with regard to medications without consultation from her outpatient psychiatrist. We again discussed a family meeting and patient determined that the family member she wishes to meet with first is her biological father; this is being set up for tomorrow, 03/09/2017. For some reason related to her sister Ni's behavior while visiting patient during this admission the latter does not want her to be part of a family meeting (after having told me Ni was "the only one" she actually wanted to see).
--- NOTE | 2017-03-08 17:44 | NUR ---
PT IS COOPERATIVE WITH STAFF AND PEERS, AND COMPLIANT WITH UNIT RULES. OFTEN IN MILIEU, THOUGH STAYING IN PERIPHERY. LIMITED INTERACTION IWHT OTHERS. APPEARS ANXIOUS AT TIMES. MOOD IS STABLE, AFFECT APPEARS NORMAL IN ALL RESPECTS, COMMUNICATION IS ORGANIZED AND APPEARS NORMAL IN ALL RESPECTS, AND APPETITE IS NORMAL. PT DENIES SI AT THIS TIME.
--- NOTE | 2017-03-08 18:50 | SOCIAL WORKER PROG NOTE PSYCH ---
Social Work Progress Note Progress Note 5pm Dr. Loredo and this policy writer sales met with pt. Pt was informed that her father has agreed to attend a family meeting, which is scheduled for 2pm on 03/09/17. Pt was in agreement with this. Pt reported, "I'm alot better. I'm calmer." Pt discussed multiple topics, however appeared to focus on concerns about people "not treating me right" including interpersonal stressors. Pt was not willing to involve her sister, Ni, in her treatment at this time reporting that she was angry with her due to a situation she recently experienced in which she did not feel supported. Pt also discussed medications with Dr. Loredo.
[2017-03-08 19:56] VITALS: BP 117/62
--- NOTE | 2017-03-09 05:35 | NUR ---
PT QUIET, MOSTLY IN BED ON EVENINGS. PT UP X 1 IN THE NIGHT TO THE TOILET. PT SOMEWHAT VIGILANT BUT DENIES PARANOIA.
[2017-03-09 07:42] VITALS: BP 103/55
--- NOTE | 2017-03-09 11:10 | NUR ---
PT IS COOPERATIVE, COMLPIANT AND CALM. PT HAS NOT BEEN HYPERACTIVE/PACING THIS AM SHIFT, SEEN ON PREVIOUS SHIFTS. PT HAS BEEN ATTENDING GROUPS, HOWEVER, SHE DID NOT ATTEND PLANNING MEETING. PT TOOK A SHOWER THIS MORNING AND DRESSED IN HER STREET CLOTHES. PT HAS MINIMAL INTERACTIONS WITH PEERS, MOSTLY SEEN TALKING TO HERSELF. VS ARE ARE STABLE AND DENIES ANY SI/HI TO THIS MHW.
[2017-03-09 12:23] VITALS: BP 119/69
[2017-03-09 16:13] VITALS: BP 115/73
--- NOTE | 2017-03-09 16:42 | SOCIAL WORKER PROG NOTE PSYCH ---
Social Work Progress Note Progress Note 03/09/17, 1:05pm Dr. Loredo and this press writer met with pt and her father for a family meeting. Pt's father appeared concerned for the pt's overall well-being, however, tension was evident between pt and her father regarding his involvement. Pt inquired about a discharge date, and was informed that attempts are being made to reach her outside psychiatrist, "Dr. Conner." She is reluctant to make any medication changes at this time. * Community resource contacts and liaison with other clinicians/agencies
--- NOTE | 2017-03-09 16:46 | CP SOUTH PROGRESS NOTE PSYCH ---
Psych (Inpt) Progress Note Progress Note Include the following elements, when applicable: Involvement in the active treatment of the patient with behavioral observations of the patient and the patient's response to the treatment. Review of the ongoing treatment process in the context of the treatment plan. Indication of how multi-disciplinary staff members are carrying out the treatment plan. Plans for future interventions and recommendations for revision of the treatment plan. Liaison with other physicians/providers. Progress Note: PSYCHIATRIST NOTE (FAMILY MEETING), 03/09/2017: I discussed this patient's slow progress to date, current mental status, treatment and discharge planning with staff team today in the daily morning ARMAAN and Bailey Anderson LCSW, and I also met with patient and latter's biological father in a family sesssion. I have continued to attempt to reach and have been leaving messages on his answering machine for patient's private psychiatrist, Dr. Abdullahi Casillas (telephone #: [phone]--patient knows her doctor's number accurately and completely solely from memory alone), through this afternoon but he may still be away from his office; I will resume attempts on ; until/unless I reach "Dr. Steele" patient is still reluctant to make any changes to her current (?longtime) psychotropic medication regimen; I would like to consider increasing current dose of Geodon or switching to another neuroleptic of higher potency and/or add another mood stabilizer, Tegretol or [place] (not Depakote given that patient is currently titrating up on dose of Lamictal). Father appeared sincerely interested in his daughter's welfare and safety and future opportunities for living a happier life, but had a tendency ( which very much irritated patient) of repeating himself or stressing things over and over again. In some ways, his perseverative presentation was remisicent of his daughter's recent/current behavior here in hospital. Father and daughter more or less took turns wanting the meeting to be concluded or continued until finally both (and we) could agree. During this meeting, father emphasized his caution to his daughter about both of her recent male relationships, one with a younger possibly anti-social exploiter and the other "with a man twice her age...he's over 80!" Patient has expressed her ambivalent feelings concerning both of these men but seemed to still be upset with her father's hard-handed sort of intervention and condemnation and pointed out more than once the multitude of "problems" within their own (her and father's) family.
--- NOTE | 2017-03-09 17:40 | NUR ---
PT IS COOPERATIVE WITH STAFF AND PEERS, AND COMPLIANT WITH UNIT RULES. OFTEN IN MILIEU, THOUGH STAYING IN PERIPHERY, WITH LIMITED INTERACTION WITH OTHERS. MOOD IS STABLE, AFFECT APPEARS FLAT/CONSTRICTED. PT HAS BEEN OBSERVED TALKING TO SELF AT TIMES. APPEARS HIGHLY ANXIOUS WHILE IN MILIEU. COMMUNICATION IS ORGANIZED, THOUGH APPEARS SLIGHTLY RAPID. APPETITE IS NORMAL. PT DENIES SI AT THIS TIME.
[2017-03-09 19:40] VITALS: BP 123/73
[2017-03-10 07:36] VITALS: BP 114/74
[2017-03-10 11:57] VITALS: BP 127/70
--- NOTE | 2017-03-10 12:51 | NUR ---
PT IS PRESENT WITHIN THE MILIEU AND SITS IN THE LOUNGE CLOSE TO THE NURSES STATION/FISH TANK FREQUENTLY AND LOOKS/APPEARS VISIBLY TENSE E.G., GRIMACED AND CONSTRICTED AFFECT, CLOSE BODY LANGUAGE, SPEAKING SOFTLY AND RAPIDLY TO SELF, DID ATTEND GROUPS TODAY WELL AND REPORTED THE GOAL WAS TO MAKE PLANS FOR DISCHARGE (HAS NO INSIGHT FOR REASON OR NEED CURRENTLY FOR ADMISSION) AND WENT TO FOCUS GROUP WELL.
--- NOTE | 2017-03-10 14:46 | CP SOUTH PROGRESS NOTE PSYCH ---
Psych (Inpt) Progress Note Progress Note Include the following elements, when applicable: Involvement in the active treatment of the patient with behavioral observations of the patient and the patient's response to the treatment. Review of the ongoing treatment process in the context of the treatment plan. Indication of how multi-disciplinary staff members are carrying out the treatment plan. Plans for future interventions and recommendations for revision of the treatment plan. Liaison with other physicians/providers. Progress Note: Disorganized, paranoid, talking to herself. Stated that people are saying, things about babies, I can leave, theyre not nice to me how they think, I just want my dad to come here,they arent being nice to the doctor here, I just called my doctor he knows Im well I can leave Per staff has been asking to leave, to call her doctor and sign out, and needs frequent redirection. MSE: young woman, fair grooming, blunted affect, psychomotor agitation gets up quickly, talking to herself, fidgets. Incoherent, disorganized, perseverative thinking process. Mood neutral, affect blunted. Unable to answer questions rationally due to preoccupation with leaving, repeats herself frequenrlty. Mumbling to herself. Insight to current situation is absent, judgment poor. Plan: attempted to educate her regarding need for tx, regarding medication changes and she continues to refuse.
[2017-03-10 15:35] VITALS: BP 136/78
[2017-03-10 20:38] VITALS: BP 129/72
--- NOTE | 2017-03-10 21:50 | NUR ---
PT IS VISIBLE ON UNIT, SITTING IN LOUNGE AND VISITING WITH BOYFRIEND AND FATHER. PT APPEARS VISIBLLY ANXIOUS, SHAKING HER LEGS AND PACING UNIT. AT ONE POINT IN THE EVENING, PT REPORTED WANTING TO GO HOME AND TRYING DOORS. OVERALL COOPERATIVE AND COMPLIANT WITH STAFF. MINIMAL INTERACTION WITH PEERS. NO SI REPORTED. PT HAS AN ANXIOUS MOOD AND IRRITABLE/CONSTRICTED AFFECT.
--- NOTE | 2017-03-11 06:08 | NUR ---
PATIENT SLEPT ALL NIGHT.
[2017-03-11 08:05] VITALS: BP 116/62
--- NOTE | 2017-03-11 11:23 | CP SOUTH PROGRESS NOTE PSYCH ---
Psych (Inpt) Progress Note Progress Note Include the following elements, when applicable: Involvement in the active treatment of the patient with behavioral observations of the patient and the patient's response to the treatment. Review of the ongoing treatment process in the context of the treatment plan. Indication of how multi-disciplinary staff members are carrying out the treatment plan. Plans for future interventions and recommendations for revision of the treatment plan. Liaison with other physicians/providers. Progress Note: Stated that her sister, father and boyfriend visited yesterday and they had a nice visit. She was more pleasant and less acutely irritable initially. Disorganized, flight of ideas, said for example, I didnt hurt him, I had a cold sore and it didnt go away, I dont want to talk about it anyomre, its always washed my hands, thats why I always want to say goodbye, I dont want to , I just dont like that. Not amenable to reality testing, not amenable to taking different or higher doses of meds. Did sleep overnight. MSE: young woman, fair grooming, more full affect today, mood is neutral. Psychomotor agitation less this morning than it was yesterday. She appears internally preoccupied much of the day, tense. Speech rapid rate, regular volume and rhythm. Incoherent, disorganized, perseverative thinking process. Mood neutral, affect more full today. Unable to answer questions appropriately, goes on in illogical topics. Insight to current situation is absent, judgment poor. Plan: Acutely psychotic, labile; clinically unchanged. Attempted to educate her regarding need for tx, regarding medication changes and she continues to refuse.
[2017-03-11 12:14] VITALS: BP 113/67
--- NOTE | 2017-03-11 12:22 | NUR ---
PT IS MOSTLY SITTING BY THE NURSES STATION/NEXT TO THE FISH TANK AND APPEARS TENSE, ANXIOUS, GUARDS WITH ARMS AND LEGS CROSSED, TALKING TO SELF AND WHEN SHE CONVERSES WITH STAFF IS PRESSURED, HYPERVERBAL WITH PARANOID CONTENT. DID NOT ATTEND PLANNING MEETING HOWEVER, WENT TO FOCUS GROUP WHERE THERE WAS MINIMAL INTERACTION, PASSIVE ENGAGEMENT BUT TOLERANT OF THE PROCESS OF THE GAME ACTIVITY, + APPETITE.
[2017-03-11 15:57] VITALS: BP 130/54
[2017-03-11 20:12] VITALS: BP 114/62
--- NOTE | 2017-03-11 23:07 | NUR ---
PT HAD VISITORS EARLIER IN THE DAY THAT WERE EVENTUALLY ASKED TO LEAVE DUE TO VARIOUS REASONS. SHE HAD ALSO GOTTEN IRRITATED WITH HER FATHER AND DEMANDED THAT HE LEAVE. PT HAS BEEN OBSERVABLY ANXIOUS, JUMPY AND PARANOID. SHE CAN OFTEN BE SEEN TALKING TO HERSELF IN THE CORNER OF THE ROOM. PT HAS DENIED ANY THOUGHTS OF SI WHEN ASKED.
--- NOTE | 2017-03-12 05:35 | NUR ---
PT WAS UP X 1 IN THE NIGHT AND THEN UP AT 0500 FOR THE DAY.
[2017-03-12 07:35] VITALS: BP 134/70
[2017-03-12 12:33] VITALS: BP 128/66
--- NOTE | 2017-03-12 13:58 | NUR ---
PT VISIBLE IN THE MILIEU TODAY. HER GOAL WAS TO MAKE PLANS FOR DISCHARGE, AND TALK TO DR. GARCIA. SHE HAS BEEN PARTICIPATING IN GROUPS THROUGHOUT THE DAY. SHE DOES NOT INTERACT MUCH WITH PEERS, BUT HAS BEEN COOPERATIVE WITH STAFF DIRECTION. PT DENIES THOUGHTS TO HURT HERSELF WHEN ASKED.
[2017-03-12 15:57] VITALS: BP 113/71
[2017-03-12 16:37] VITALS: BP 113/71
--- NOTE | 2017-03-12 16:56 | SOCIAL WORKER PROG NOTE PSYCH ---
Social Work Progress Note Progress Note Pt is pleasant, she reports the meeting with her Father didn't go so well, and then adds, "what's the big deal some people want to talk to family and some don' t I have rights, and I don't need them in my life all the time". Pt reports she wants to go home, she is denying, si/hi, there has been improvement in regards to her level of anxiety and psychotic symptomology present, state since admission. She is usually perseverative and repetative.
--- NOTE | 2017-03-12 18:46 | NUR ---
PT IS CALM, COOPERATIVE WITH STAFF AND PEERS, AND COMPLIANT WITH UNIT RULES. OFTEN IN MILIEU, THOUGH STAYING TO SELF MOSTLY. IS IRRITABLE AT TIMES, BUT THIS APPEARS TO PASS QUICKLY. MOOD IS STABLE, AFFECT APPEARS FULL RANGE BUT CAN BE LABILE AT TIMES. COMMUNICATION IS ORGANIZED AND APPEARS NORMAL IN ALL RESPECTS. APPETITE IS NORMAL IN ALL RESPECTS. PT DENIES SI AT THIS TIME.
[2017-03-12 20:05] VITALS: BP 112/62
--- NOTE | 2017-03-12 20:28 | CP SOUTH PROGRESS NOTE PSYCH ---
Psych (Inpt) Progress Note Progress Note Include the following elements, when applicable: Involvement in the active treatment of the patient with behavioral observations of the patient and the patient's response to the treatment. Review of the ongoing treatment process in the context of the treatment plan. Indication of how multi-disciplinary staff members are carrying out the treatment plan. Plans for future interventions and recommendations for revision of the treatment plan. Liaison with other physicians/providers. Progress Note: PSYCHIATRIST NOTE, 03/12/2017: I discussed this patient's slow progress to date, current mental status, treatment and discharge planning with staff team today in the daily morning ITTM and also met with her again myself in individual session; we spent some time going over the family meeting with her biological father on 03/09/2017; she is still angry with him for his not being more forthcoming with assisting her to organize an operable motor vehicle for her use; apparently, he has at least two vehicles at his disposal but has failed to provide her with the keys/access to any of these (either prior to the family meeting or since); patient contends that this prevents her from shopping or even getting to her outpatient treatment appointments going forward. Patient continues to be mildly pressured and scattered, disjointed and occasionally loose in expressed thought, though improving; she is completely denying acute suicidality or homicidality at this point; I am not sure how much better she is going to get here in hospital, particularly if she continues to refuse any increase in Geodon or switch to or addition of a second agent. I received a voicemail message on my office telephone from over the weekend from Dr. Casillas's office staff; his sound assistant said he was still away from the office but asked her to forward me the message that he is not completely satisfied with patient's current medication regimen ( as patient has insisted to me) and would like me to initial any changes I believe would be beneficial to his patient and that we would speak together at a future date; I went over this today with patient, but she continued her reluctant attitude towards making ANY change in her current medication regimen; I told her there is a PRN dose of Geodon, 20mg, available to her and encouraged her to utilize it to see if it helps slow down and organize her thinking and stabilize her moods any further.
--- NOTE | 2017-03-13 06:11 | NUR ---
PT SLEPT AFTER GEODON 20 PRN AT 2230. PT'S FATHER VISITED AND HE WAS CLOSELY MONITORED ON EVENINGS.
[2017-03-13 08:03] VITALS: BP 102/56
[2017-03-13 12:30] VITALS: BP 120/56
--- NOTE | 2017-03-13 13:36 | NUR ---
PT IS COMPLIANT AND COOPERATIVE. MOOD IS STABLE WITH A CONSTRICTED AND EUTHYMIC AFFECT. PT APPEARS ANXIOUS AT TIMES AND APPEARS TO BE RESPONDING TO AH. PT NOTED TO BE USING HAND WAIST PLEATER VERU FEQUENTLY. PT DENIES SI AT THIS TIME, NO COMPLAINTS OFFERED. PT TENDS TO STAY TO SELF WHEN IN COMMUNITY- HAS MINIMAL INTERACTION WITH OTHERS. PT SPEECH IS PRESSURED AND RAPID AND PT HAS TROUBLE STAYING ON TOPIC- WILL JUMP FROM ONE TO ANOTHER. PT IS ATTENDING GROUPS. VITALS ARE STABLE, APPETITE IS GOOD.
--- NOTE | 2017-03-13 14:50 | SOCIAL WORKER PROG NOTE PSYCH ---
Social Work Progress Note Progress Note 2:25pm This telegraphic typewriter mechanic met with pt. Pt reported "I'm good", she denied SI/HI/AH/VH. She stated that she is not interested in attending any treatment other than meeting with her psychiatrist, Dr. Casillas with whom she has an appointment later this month (exact date/time unknown). She was agreeable to this telegraphic typewriter mechanic contacting her psychiatrist in attempt to schedule an earlier appointment. Pt was informed by this telegraphic typewriter mechanic that her mother left a vm inquiring about a discharge date. Pt stated that she did not wish to sign a CAROLE for her mother and did not want any information shared with her mother. A vm was left for her psychiatrist with a call back number requesting to schedule an appointment. Pt did not identify any barriers (including scheduling) to meeting with her psychiatrist.
--- NOTE | 2017-03-13 15:19 | CP SOUTH PROGRESS NOTE PSYCH ---
Psych (Inpt) Progress Note Progress Note Include the following elements, when applicable: Involvement in the active treatment of the patient with behavioral observations of the patient and the patient's response to the treatment. Review of the ongoing treatment process in the context of the treatment plan. Indication of how multi-disciplinary staff members are carrying out the treatment plan. Plans for future interventions and recommendations for revision of the treatment plan. Liaison with other physicians/providers. Progress Note: PSYCHIATRIST NOTE, 03/13/2017: I discussed this patient's slow progress to date, current mental status, treatment and discharge planning with staff team today in the daily morning ITTM. She had taken a single PRN dose of Geodon, 20mg, at about 10:30pm last evening, and staff reported that she had slept well after that; when I spoke with patient today she told me that the PRN had helped her calm herself down after frustrating interactions with members of her family last evening ("but otherwise I don't need a PRN, only for my family [upsetting her]." She agreed to me prescribing a PRN dose or two a day of the Geodon "just in case I need it because my family is making me crazy." Patient had been doing well with the upward titration in dose of Lamictal; it is almost a week since she went up to 50mg/day, and there have been no adverse effects/reactions to date; patient is willing to hav her dose of Lamictal increased to 75mg/day as of tomorrow morning , 03/14/2017. Patient was in good spirits when I saw her; in fact, she had just completed Spirituality Group; patient told me about her strong katie and that she had a small Bible at home given to her by her grandmother from which she frequently reads but was a bit concerned that she didn't know where she had "left off;" I offered that the Bible was really something one could start from anywhere within it and gain insight and strength if they had the katie. The plan at this time is for patient to be discharged home tomorrow AM with f/u appointment for Dr. Casillas who said that she had actually seen him "twice" so far but was willing to continue with her.
[2017-03-13 16:41] VITALS: BP 124/64
--- NOTE | 2017-03-13 18:17 | NUR ---
PT IS COOPERATIEV WITH STAFF AND PEERS, AND COMPLIANT WITH UNIT RULES. OFTEN IN MILIEU, THOUGH STAYING IN PERIPHERY, PT IS OFTEN BY SELF - SLIGHTLY WITHDRAWN/ISOLATIVE. MOOD IS STABLE, AFFECT APPEARS FULL RNAGE, BUT CAN BE LABILE/TEARFUL AT TIMES. COMMUNICATION IS ORGANIZED AND APPEARS NORMAL IN ALL RESPECTS, AND APPETITE IS NORMAL. PT DENIES SI AT THIS TIME.
[2017-03-13 19:47] VITALS: BP 118/66
--- NOTE | 2017-03-14 07:11 | NUR ---
PT UP X 1 FOR A LONG TIME IN THE BATHROOM WASHING HANDS AND USING LARGE QUANTITIES OF PAPER. PT ANXIOUS, VIGILANT.
[2017-03-14 08:08] VITALS: BP 116/58
[2017-03-14] MEDS ORDERED: GEODON20 M1 PO (10:28)
[2017-03-14] MEDS ORDERED: ZIPRASIDONE HCL80 M1 PO (10:28)
--- NOTE | 2017-03-14 11:16 | SOCIAL WORKER PROG NOTE PSYCH ---
Social Work Progress Note Progress Note This keno writer/runner called Dr. Casillas's office and an appointment has been scheduled for Thursday, April 06, 2017 at 1:45pm. Pt stated that she has an appointment scheduled but was unsure of the date/time which she has at home. This appointment could not be confirmed during the call to Dr. Casillas's office today. Dr. Loredo and this keno writer/runner met with pt. Pt accepted the appointment with Dr. Casillas and was in agreement with outpt treatment with that provider. Pt was recommended to obtain a wrapper caser, but was not willing to do so at this time. Pt will call to inquire about an earlier appointment with Dr. Casillas. She is not interseted in pursuing any additional outpt treatment. Pt will call her sister, Jorge, to coordinate transportation home.
[2017-03-14] MEDS ORDERED: LAMICTAL25 M1 PO (11:20)
--- NOTE | 2017-03-14 11:31 | NUR ---
PT IS SCHEDULED TO LEAVE TODAY, ALREADY MET WITH DR. GARCIA WITH HER CREDIT DEPARTMENT MANAGER. MOOD IS STABLE WITH BRIGHT/FULL RANGE AFFECT, INTERACTS WITH PEERS AND STAFF AND REMAINS IN CONTROL. WHEN ASKED DIRECTLY DENIES SI/HI/HALLUCINATIONS, NO ISSUES OR COMPLAINTS REPORTED OR OBSERVED, CALM, COOPERATIVE, PLEASANT AND RESPECTFUL, MEDICATION & TREATMENT COMPLIANT. REPORTS AN OVERALL IMPROVEMENT IN MOOD/MENTAL STATUS, + SLEEP AND APPETITE. PT HAS A + UNDERSTANDING OF NEED AND MEDICATION REGIMENT AND VERBALIZES UNDERSTANDING RE: DISCHARGE FOLLOW-UP PLAN. PT RESOURCE GUIDE AND W-10 REVIEWED AND NO QUESTIONS OR CONCERNS. INFORMATION PACKETS RE: SI AND DEPRESSION GIVEN TO PT WELL.
--- NOTE | 2017-03-14 12:17 | CP SOUTH PROGRESS NOTE PSYCH ---
Psych (Inpt) Progress Note Progress Note Include the following elements, when applicable: Involvement in the active treatment of the patient with behavioral observations of the patient and the patient's response to the treatment. Review of the ongoing treatment process in the context of the treatment plan. Indication of how multi-disciplinary staff members are carrying out the treatment plan. Plans for future interventions and recommendations for revision of the treatment plan. Liaison with other physicians/providers. Progress Note: PSYCHIATRIST NOTE (DISCHARGE), 03/14/2017: I discussed this patient's slow progress to date, current mental status, treatment and discharge plans with staff team today in the daily morning ITTM and met with her again myself in individual session prior to discharging her to her home in [facility], and to resume her outpatient treatment with Dr. Casillas; the doctor will be returning from vacation on 03/26/2017 and patient plans to call his office for an earlier appointment and keep in touch with Yodit in his office in the meantime; as it stands now, she has a visit with "Dr. Steele" scheduled for 04/06/2017 at 1:45pm. We have repeatedly tried to get patient to accept aftercare in an [facility] ([facility] or [facility] [place]--she resides in [place] [facility]), at least until her private psychiatrist returns, but she has consistently and firmly declined this recommendation from us and firmly refused to consider that recommended option at this time; we did also try to refer her for [facility] [place] case mangement services and pointed out some of the various ways in which a case sealer could help her maintain her functional independence in the community. Patient has also refused to consider ANY alteration in her psychotropic regimen, increase in Geodon dose, addition of a mood stabilizer, or switch to another neuroleptic; however, she has agreed to accept a prescription for PRN Geodon to be taken for disorganized and/or racing thoughts or sleep disturbance related to same. Unfortunately, though she has been getting little by way of objective, concrete help from anyone in her family, she is now being inundated with unsolicited opinions about various aspects of her life which are only serving to threaten destabilization when she is beginning to organize herself and make practical priorities, such as that she needs a motor vehicle help her to obtain groceries, get to her outpatient appointments, etc.; living where she does in [place], [place]., patient does not have easy access to adequate transit services. During our family meeting with patient and her father we tried to gain his cooperation in helping patient to be restored with a car; it was established that he had the keys to two different vehicles but would not provide her with access to either one, nor suggest any way(s) in which she could take care of vital day-to-day activities without a motor vehicle. Today, the family had difficulty even organizing a ride home for patient though her sisters Ni and Jorge and her father where all aware of her discharge and next for transportation home. Despite the above (and other evidence of wider extended family chaos and undermining of her efforts at independent living/self-sustainability) patient has continued to slowly organize herself, is no longer as scattered in thinking, better able to focus and plan, not expressing any evidence of markel thought disorder (perhaps some mild guardedness/mild paranoia which is likely close to baseline and contributed to by the actual behavior of various family members who interact with her), still mildly pressured, particularly when more anxious, but clearly not hypomanic. Patient's affect is bright and cheerful, her mood close to euthymic, not irritable; there is no evidence of suicidal or homicidal ideation, plans, intent or impulses and patient is well aware of her safety plan should she ever in future come to believe herself at acute risk of self-harm or harming others. (for complete list of all medications at time of discharge, dosages, scheduling, amounts prescribed, indications, see "Discharge Medications" section of the discharge summary from this admission)
[2017-03-14 12:20] VITALS: BP 117/63
[2017-03-14 16:05] VITALS: BP 115/70
--- NOTE | 2017-03-14 16:51 | SOCIAL WORKER PROG NOTE PSYCH ---
Social Work Progress Note Progress Note 3:15pm Pt called her sister, Jorge, with this advertising copywriter present, as pt reported that she had been unsuccessful in reaching her from the pt phone to call her sister for transportation. Pt was able to reach her sister, Jorge, who agreed to provide pt transportation from the hospital.
== END 2017-03-14 16:52 | DRG 885 ==
LOC: ERH 20:08 → CP SOUTH 03-01 15:42 → ERHI 03-01 15:42 → EDBEDREQSVC 03-01 16:51 → ENTRNSPT 03-01 16:54 → CMPTRNSPT 03-01 17:13 → CP SOUTH 03-01 17:21 → ENPENDDIS 03-14 12:00 → CP SOUTH 03-14 16:52
PROVIDERS: Physician Assistant; ADMIT Psychiatry & Neurology Psychiatry
DX: F31.2 Bipolar disorder, current episode manic severe with psychotic features (principal); N32.81 Overactive bladder; J45.909 Unspecified asthma, uncomplicated; K58.9 Irritable bowel syndrome, unspecified
CPT/HCPCS: 80307; 81001; 81025; G0463; G0480; J3490

== ENCOUNTER 2017-07-17 11:25 | Inpatient (IN) | payer OTHER, MEDICARE ==
[~2017-07-17] VITALS: Ht 177.8 cm; Wt 72.6 kg
[~2017-07-17 11:25] MED LIST changes: +CARBAMAZEPINE100 M2 PO; +FERROUS SULFAT325 M2 PO; +GEODON20 M1 PO; +LAMICTAL150 M1 PR; +LAMICTAL25 M1 PO; +RISPERDAL3 M1 PO; +RISPERDAL4 M1 PO; +TEGRETOL200 M1 PO
--- NOTE | 2017-07-17 11:29 | ED PSYCHIATRIC COMPLAINT ---
History of Present Illness General Chief Complaint: Psychiatric Related Complaint Stated Complaint: COMBATIVE PSYCH Source: patient, old records, EMS, police Exam Limitations: unable to give history, clinical condition Vital Signs & Intake/Output Vital Signs & Intake/Output Vital Signs Date Time Temp Pulse Resp B/P B/P Pulse O2 O2 Flow FiO2 Mean Ox Delivery Rate 07/18 1411 97.0 80 16 122/78 99 Room Air 07/18 1047 98.1 95 20 126/76 99 Room Air 07/18 0705 97.3 75 18 124/76 98 Room Air 07/17 2315 97.3 87 18 127/85 07/17 2039 97.4 90 18 130/74 99 Room Air 07/17 1644 97.2 89 18 132/79 99 Room Air ED Intake and Output 07/18 0000 07/17 1200 Intake Total Output Total Balance Patient 160 lb Weight Weight Estimated Measurement Method Allergies Coded Allergies: Penicillins (BLOTCHES, HIVES 04/17/16) Sulfa (Sulfonamide Antibiotics) (HIVES 04/17/16) ampicillin (HIVES 04/17/16) azithromycin (RASH 04/17/16) ciprofloxacin (From CIPRO) (HIVES, VOMITING 04/17/16) sulfamethoxazole (From BACTRIM) (HIVES 04/17/16) trimethoprim (From BACTRIM) (HIVES 04/17/16) Reconcile Medications Albuterol Sulfate (Ventolin Hfa) 90 MCG HFA.AER.AD 2 PUF INH Q4-6 PRN PRN WHEEZING/SHORTNESS OF BREATH Carbamazepine (Tegretol) 200 MG TABLET 1 TAB PO BID mood stabilization Carbamazepine 100 MG TAB.CHEW 1 TAB PO DAILY@2000 mood stabilization Take with one 200mg tab po QPM for a total of 300mg. Lamotrigine (Lamictal) 25 MG TABLET 2 TAB PO QPM mood stabilization Take 2 tabs (50mg) po QPM. Linaclotide (Linzess) 145 MCG CAPSULE 1 CAP PO DAILY CONSTIPATION (Reported) Oxybutynin Chloride 5 MG TABLET 5 MG PO 1000,1700,2200 urinary health Risperidone (Risperdal) 3 MG TABLET 2 TAB PO QPM clear thoughts Take 2 tabs (6mg) po QPM. Triage Nurses Notes Reviewed? yes Unable To Obtain Hx Due To: pt refusing to answer Onset: Abrupt Duration: hour(s): (2), constant, continues in ED Timing: recent history Severity: moderate, severe Associated Symptoms: anxiety, impaired concentration, nikos LMP (ages 10-50): unknown : No Patient currently breastfeeds: No HPI: 42-year-old female past medical history of schizoaffective disorder and anxiety and asthma brought in by ambulance on a police paper for a psych evaluation. Patient was found in a parking lot kicking cars and talking to herself. She refused to answer any questions and was combative and aggressive with police. She had a be restrained by EMS and arrived in 4-point restraints. Patient is talking to herself rapidly and is refusing to answer any questions. She was seen here earlier this month for similar symptoms. Patient states she is not taking her medications she has been noncompliant in the past. (AYLEEN CLARKE PA-C) Past History Medical History Any Pertinent Medical History? see below for history Neurological: NONE EENT: NONE Cardiovascular: left bundle branch block Respiratory: asthma Gastrointestinal: irritable bowel syndrome Hepatic: NONE Renal: OVER ACTIVE BLADDER Musculoskeletal: NONE Psychiatric: anxiety, psychosis (R/O chronic bipolar disorder), schizo affective disorder Endocrine: NONE Blood Disorders: anemia Cancer(s): NONE ANALYSIS TESTER/Reproductive: NONE History of MRSA: No History of VRE: No History of CDIFF: No Surgical History Surgical History: non-contributory Psychosocial History Who do you live with Patient/Self What is your primary language Syriac Family History Hx Contributory? No (AYLEEN CLARKE PA-C) Review of Systems Review of Systems Constitutional: Reports: no symptoms. EENTM: Reports: no symptoms. Respiratory: Reports: no symptoms. Cardiovascular: Reports: no symptoms. GI: Reports: no symptoms. Genitourinary: Reports: no symptoms. Musculoskeletal: Reports: no symptoms. Skin: Reports: no symptoms. Neurological/Psychological: Reports: see HPI, anxiety, confusion, emotional problems. Hematologic/Endocrine: Reports: no symptoms. Immunologic/Allergic: Reports: no symptoms. All Other Systems: Reviewed and Negative (AYLEEN CLARKE PA-C) Physical Exam Physical Exam General Appearance: well developed/nourished, alert, awake, anxious, severe distress Head: atraumatic, normal appearance Eyes: Bilateral: normal appearance, PERRL, EOMI. Ears, Nose, Throat: normal pharynx, normal ENT inspection, hearing grossly normal Neck: normal inspection, supple, full range of motion Respiratory: normal breath sounds, chest non-tender, no respiratory distress, lungs clear Cardiovascular: regular rate/rhythm, normal peripheral pulses Gastrointestinal: normal bowel sounds, soft, non-tender, no organomegaly Extremities: normal range of motion Neurological/Psychiatric: no motor/sensory deficits, awake, agitated, alert, anxious Appearance/Memory/Insight: disheveled, impaired insight Behavoir/Eye Contact/Speech: avoids eye contact, belligerent, uncooperative, increased rate of speech, refused to answer Thoughts/Hallucinations: delusions, flight of ideas, incoherent, paranoid Skin: intact, normal color, warm/dry SAD PERSONS Done? patient not suicidal (AYLEEN CLARKE PA-C) Progress Differential Diagnosis: drug intoxication, drug overdose, drug withdrawal, electrolyte abnormality, ANXIETY DISORDER, SCHIZOAFFECTIVE DISORDER, MEDICATION NONCOMPLIANCE Plan of Care: Orders Procedure Date/time Status Admit to inpatient psych 07/18 1630 Active Continuous Observation Monitor 07/18 1211 Active Regular Diet 07/17 D Active Patient arrives with EMS in 4 point restraints. She is acting aggressively and is agitated. She has pressured speech and is speaking very rapidly. She reports that people are following her and appears paranoid. She has a history of schizoaffective disorder and presented here earlier this month and a similar fashion. She will require restraints due to her condition she'll be medicated with IM Haldol Ativan and Benadryl. Patient is doing much better after medications. She is resting comfortably. She is now answering some questions. She does not remember why she was brought in. She states that she is feeling well and denies any concerns. She denies any suicidal or homicidal ideation. She states she is not taking her medications. She denies any physical pain. Patient will be monitored. We'll check labs and she'll have a crisis consult. Patient continues to be doing much better. Restraints removed. She is resting comfortably. Labs so far within normal limits. Spoke with crisis. They recommend medicating the patient with her doses of Tegretol, Lamictal and risperidone. Patient be held over for reevaluation in the morning. Patient signout to Dr. Gipson pending reevaluation in the morning (AYLEEN CLARKE PA-C) 07/18/2017 4:02:51 PM Patient signed out to me by Dr. Franco at 3 PM. Pending crisis evaluation and disposition. Patient placed on PEC. (KHUSHBU GONZALEZ,SABINE) Hand-Off Endorsed To: FAY GIPSON MD Endorsed Time: 2300 Pending: consult (CRISIS) (AYLEEN CLARKE PA-C) Hand-Off Endorsed To: TOR FRANCO DO Endorsed Time: 0700 Pending: consult (FAY GIPSON MD) Departure Departure Disposition: STILL A PATIENT Condition: Stable Clinical Impression Primary Impression: Schizoaffective disorder Qualifiers: Schizoaffective disorder type: unspecified Qualified Code: F25.9 - Schizoaffective disorder, unspecified Referrals: FRANKIE TURNER MD (PCP/Family) Departure Forms: Customer Survey General Discharge Information (AYLEEN CLARKE PA-C) PA/METAL EXTRUSION SUPERVISOR Co-Sign Statement Statement: ED Attending supervision documentation- [X] I saw and evaluated the patient. I have also reviewed all the pertinent lab results and diagnostic results. I agree with the findings and the plan of care as documented in the PA's/METAL EXTRUSION SUPERVISOR's documentation. [X] I have reviewed the ED Record and agree with the PA's/METAL EXTRUSION SUPERVISOR's documentation. [] Additions or exceptions (if any) to the PAs/METAL EXTRUSION SUPERVISOR's note and plan are summarized below: [] (FAY GIPSON MD) Departure Comments 07/18/17 2:32 pm The patient was signed out to me by Dr. Gipson at 7 AM. She is pending disposition by crisis. She will be signed out to Sabine Perry MD at 3 PM. (OTR FRANCO DO) Departure Time of Disposition: 1630 Psych Admission Note Psychiatric Admission: I have seen and evaluated JENNY COLÓN. I have also reviewed all the pertinent lab results and diagnostic results. JENNY COLÓN will be admitted to our inpatient Psychiatric unit for treatment and care. (SABINE PERRY MD) [] Additions or exceptions (if any) to the PAs/METAL EXTRUSION SUPERVISOR's note and plan are summarized below: [] (FAY GIPSON MD)
[2017-07-17 12:08] LABS: ABSOLUTE BASOPHIL COUNT 0 /CUMM (0.0-0.2); ABSOLUTE EOSINOPHIL COUNT 0.1 /CUMM (0.0-0.7); ABSOLUTE GRANULOCYTE CT 5.3 /CUMM (1.4-6.5); ABSOLUTE LYMPH COUNT 2.8 /CUMM (1.2-3.4); ABSOLUTE MONOCYTE COUNT 0.7 /CUMM (0.10-0.60); BASOPHIL % 0.4 % (0.0-2.0); EOSINOPHIL % 0.7 % (0-5); HEMATOCRIT 37.5 % (37-47); MEAN CORPUSCULAR HGB 31.2 PG (27.0-31.0); MEAN CORPUSCULAR HGB CONC 33.7 G/DL (33.0-37.0); MEAN CORPUSCULAR VOLUME 92.5 FL (81.0-99.0); MEAN PLATELET VOLUME 9.6 FL (7.4-10.4); PLATELET COUNT 261 /CUMM (130-400); RBC DISTRIBUTION WIDTH 14.2 % (11.5-14.5); RED BLOOD CELL CT 4.05 /CUMM (4.20-5.40); WHITE BLOOD CELL COUNT 8.9 /CUMM (4.8-10.8)
--- NOTE | 2017-07-17 19:44 | ED PSYCH CRISIS CONSULTATION ---
See Addendum Crisis Consult Basic Assessment Date of Consult: 07/17/17 Responsible Person/Accompanied By: self/biba/PEER Insurance Authorization: Insurance #1: Insurance name: MEDICARE A Phone number: Policy number: [id number] Group number: Authorization number: ED Provider: Patient's ED Provider: AYLEEN CLARKE PA-C Primary Care Physician: Patient's PCP: FRANKIE TURNER MD PCP's Current Psychiatrist: none/pt hasn't followed up with treatment following recent CPS discharge Chief Complaint: Psychiatric Related Complaint Patient's Quote: I don't know what's happening in my life. Present Illness: Pt is a 42 yo female biba to [facility] ED this afternoon on a [employer] PEER. Witness called 911 due to pt displaying erratic behaviors. Pt presented with racing thoughts to [facility]. Pt has a recent hx of inpatient psychiatric treatment at [facility] and was recently discharged on Jul 05 with a plan to receive follow up care with OPS and CARE. Pt has failed to attend all follow up appointments and reports not taking her medications (Risperdal, Lamictal and Tegretol). Pt reports distress related to housing and financial issues. Pt reports feeling people don't want her to stay where she is living but couldn't be specific other that stating they "stare" at her. Pt is also questioning where her money is and why she only has limited access to her money. Pt reports having no food in the house. During this assessment the pt was alert, anxious, disorganized, pressured but generally cooperative. The pt presents with disorganized thought process, rapid speech and flight of ideas. The pt denied understanding of why she was brought in by ambulance today to ED. Pt still refers to needing to see Dr Conner but can not recall the last time she has had an appointment there. Pt unable to recall reasons why she missed CARe and OPS appts others than to say she gets confused and forgets dates. Pt reports she hasn't been taking her medications but agrees to resume meds this evening in the ED. Pt denies SI/HI/AH/VH. Pt denies etoh and substance use. The pt reports problems with sleep and not having enough food to eat. The pt reports she lives by herself and is having difficulty maintaining contact with family. The pt is advocating not to be re-admitted to inpatient tx. Pt informed that she will be restarted on medications and h/o in ED for observation then re-evaluated in the morning to determine appropriate disposition. Pt reports agreement with the plan.. Patient's Address: [address] [place], [place] [id number] Other Phone Number: Who Do You Live With? Patient/Self Family/Informants Interviewed: Collateral provided by [facility] [place] Ines Carlson [id number]. She reports pt hasn't follow through on attending [facility] appoitments since d/c from [facility]. Allergies - Coded Allergies: Penicillins (BLOTCHES, HIVES 04/17/16) Sulfa (Sulfonamide Antibiotics) (HIVES 04/17/16) ampicillin (HIVES 04/17/16) azithromycin (RASH 04/17/16) ciprofloxacin (From CIPRO) (HIVES, VOMITING 04/17/16) sulfamethoxazole (From BACTRIM) (HIVES 04/17/16) trimethoprim (From BACTRIM) (HIVES 04/17/16) Current Medications - Scheduled Medications Carbamazepine (Tegretol) 200 MG TABLET 1 TAB PO BID mood stabilization #28 TAB Prescribed by Lawanda Alvarado APRN on 07/05/17 Carbamazepine 100 MG TAB.CHEW 1 TAB PO DAILY@2000 mood stabilization #14 TAB Prescribed by Lawanda Alvarado APRN on 07/05/17 Lamotrigine (Lamictal) 25 MG TABLET 2 TAB PO QPM mood stabilization #28 TAB Prescribed by Lawanda Alvarado APRN on 07/05/17 Linaclotide (Linzess) 145 MCG CAPSULE 1 CAP PO DAILY CONSTIPATION #30 ( Reported) Entered as Reported by Chaparrita Rivera on 12/05/16 1644 Oxybutynin Chloride 5 MG TABLET 5 MG PO 1000,1700,2200 urinary health #1 TAB Prescribed by Humble Loredo MD on 04/19/17 Risperidone (Risperdal) 3 MG TABLET 2 TAB PO QPM clear thoughts #28 TAB Prescribed by Lawanda Alvarado APRN on 07/05/17 Scheduled PRN Medications Albuterol Sulfate (Ventolin Hfa) 90 MCG HFA.AER.AD 2 PUF INH Q4-6 PRN PRN WHEEZING/SHORTNESS OF BREATH #1 INHAL Prescribed by Doyle Henriquez on 12/05/16 Laboratory Results: Laboratory Tests 07/17/17 1540: Urine Opiates Screen < 100.00, Methadone Screen < 40, Barbiturate Screen < 60, Ur Phencyclidine Scrn < 6.00, Amphetamines Screen < 100, U Benzodiazepines Scrn < 85, Urine Cocaine Screen < 50, Urine Cannabis Screen < 5.00, Urine Color YEL, Urine Clarity CLEAR, Urine pH 6.5, Ur Specific [place] 1.020, Urine Protein NEG, Urine Ketones NEG, Urine Nitrite NEG, Urine Bilirubin NEG, Urine Urobilinogen 0.2, Ur Leukocyte Esterase NEG, Ur Microscopic EXAM NOT REQUIRED, Urine Hemoglobin NEG, Urine Glucose NEG 07/17/17 1135: Anion Gap 12, Estimated GFR > 60, BUN/Creatinine Ratio 25.0, Glucose 147 H, Calcium 9.6, Total Bilirubin 0.6, AST 16, ALT 29, Alkaline Phosphatase 80, Total Protein 6.8, Albumin 4.3, Globulin 2.5, Albumin/Globulin Ratio 1.7, CBC w Diff NO MAN DIFF REQ, RBC 4.05 L, MCV 92.5, MCH 31.2 H, RDW 14.2, MPV 9.6, Gran % 60.0, Lymphocytes % 31.4, Monocytes % 7.5, Eosinophils % 0.7, Basophils % 0.4, Absolute Granulocytes 5.3, Absolute Lymphocytes 2.8, Absolute Monocytes 0.7 H, Absolute Eosinophils 0.1, Absolute Basophils 0, PUBS MCHC 33.7, Serum Alcohol < 10.0 Past History Past Medical History Neurological: NONE EENT: NONE Cardiovascular: left bundle branch block Respiratory: asthma Gastrointestinal: irritable bowel syndrome Hepatic: NONE Renal: OVER ACTIVE BLADDER Musculoskeletal: NONE Psychiatric: anxiety, psychosis (R/O chronic bipolar disorder), schizo affective disorder Endocrine: NONE Blood Disorders: anemia Cancer(s): NONE 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 Non compliant with psychotropics and engaging in treatment. Dates of Treatment [facility] mental [facility] treatment Response to Treatment poor Diagnosis by History: Bipolar Disorder Schizoaffective Dis Substance Use/Abuse History Drug Use/Abuse Substances Used/Abused No Substance Abuse Treatment Substance Abuse Treatment Past Substance Abuse [place] No Inpatient Treatment No Outpatient Treatment No Comments: denies etoh and substance use Current Mental Status Mental Status Orientation: Confused Affect: Anxious Speech: Hyper-verbal, Pressured Neuro-vegetative: Concentration Poor, Sleep Disturbance Appearance Appearance- Dress/Hygiene: hospital scrubs, laying on medical bed covered with blanket. Pt engaged and cooperative. Behaviors Thought Process: Disorganized, Flight of Ideas, Loose Association, Tangential Thought Content: Delusions Memory: Impaired Insight: Poor SI/HI Risk Assessment Past Suicidal Ideation/Attempts No Current Suicidal Ideation/Att No Past Homicidal Ideation/Att: No Current Homicidal Ideation/Attempts No Degree of Intent: None Gravely Disabled: Inability, Lack of Insight, Poor Impulse Control, Poor Judgment Risk Factors: high anxiety/distress, SA/MH hospitalized, isolate/no social support, poor impulse control, lives alone, limited support Lethality Ratin PTSD Checklist PTSD Done? patient declined ED Management Sitter: Yes Restraints: Yes DSM5/PS Stressors/Medical Prob Diagnosis' (DSM 5, Stressors, Medical): Schizoaffective D/O bipolar (F25.0) housing financial Current GAF: 25 Comments: pt reports not taking medications since [facility] d/c. Pt unable to recall why she hasn't followed aftercare plan (CARE/ OPS) since discharge last week. Pt appears disorganized, anxious, pressured but agreeable to restart medication and understanding of need to stay overnight. Departure Disposition Psych Medical Clearance Date: 07/17/17 Medically Cleared at: 1615 Time Started: 1620 Time Ended: 1700 Psychiatrist Consulted: Jamie Hogan MD Date Disposition Established: 07/17/17 Time Disposition Established: 170 Plan for Disposition - Modality: H/O reeval Rationale for Disposition: Pt is on a PEER and will be H/O in ED for observation and re-evaluation by crisis in morning. Pt denies SI/HI. Pt in agreement to restart medications ( Lamictal, risperidal and tegretol). Referrals FRANKIE TURNER MD (PCP/Family)
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
[2017-07-18 22:48] VITALS: BP 139/72
[2017-07-19 07:54] VITALS: BP 129/72
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
[2017-07-19 12:23] VITALS: BP 137/83
[2017-07-19 15:44] VITALS: BP 135/75
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
--- NOTE | 2017-07-19 17:53 | SOCIAL WORKER PROG NOTE PSYCH ---
Social Work Progress Note Progress Note Patient was sitting in the kitchen eating her dinner. This video game script writer attempted to meet with her. She was very brief in her responses stating that she was "fine" and "nothing's wrong." Patient made minimal eye contact. She appeared nervous, which was observed with the patient. Patient responded, "I'm not nervous at all." When asked about interest in meeting, patient stated that she did not want to meet at this time and agreed to try again tomorrow.
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
[2017-07-19 20:14] VITALS: BP 148/78
[2017-07-20 07:40] VITALS: BP 127/69
[2017-07-20 12:17] VITALS: BP 119/69
[2017-07-20 16:06] VITALS: BP 143/76
--- NOTE | 2017-07-20 17:12 | SOCIAL WORKER PROG NOTE PSYCH ---
Social Work Progress Note Progress Note 3:20pm This telegraphic typewriter mechanic met with patient. She requested to meet in the social work office. She presented as pressured and agitated. When asked about her mood, patient stated, "I'm happy. I want to go home." She continued to talk about having her keys and wanting to leave. She stood up and walked out of the office, talking to herself on the way out. This telegraphic typewriter mechanic was unable to redirect her.
[2017-07-20 19:51] VITALS: BP 142/83
--- NOTE | 2017-07-20 23:26 | CP SOUTH PROGRESS NOTE PSYCH ---
Psych (Inpt) Progress Note Progress Note JENNY COLÓN has been admitted for 2 days. Progress Note: Current Medications Sig/Mynor Start time Last Medication Dose Route Stop Time Status Admin Acetaminophen 650 MG Q6P PRN 07/18 1730 AC PO Al Hydroxide/Mg 30 ML Q4-6 PRN PRN 07/18 1745 AC Hydroxide PO Albuterol Sulfate 2 PUF Q6P PRN 07/18 1800 AC INH Benztropine Mesylate 1 MG Q6P PRN 07/18 1730 AC PO Benztropine Mesylate 1 MG Q6P PRN 07/18 1730 AC IM Carbamazepine 200 MG DAILY@0800 07/19 0800 AC 07/20 PO 0746 Carbamazepine 300 MG DAILY@07/18 2000 AC 07/20 PO 2003 Gabapentin 300 MG Q6P PRN 07/18 1730 AC PO Haloperidol 5 MG Q6P PRN 07/18 1730 AC PO Haloperidol 5 MG Q6P PRN 07/18 1730 AC IM Lamotrigine 25 MG DAILY 07/19 1000 AC 07/20 PO 0928 Linaclotide 145 MCG DAILY 07/19 1000 AC 07/20 PO 0928 Lorazepam 2 MG Q6P PRN 07/18 1730 AC PO Lorazepam 2 MG Q6P PRN 07/18 1730 AC IM Magnesium Hydroxide 30 ML AT BEDTIME PRN 07/18 1745 AC PO Oxybutynin Chloride 5 MG TID 07/18 2200 AC 07/20 PO 2135 Risperidone 3 MG BID 07/18 220 AC 07/20 PO 2135 Trazodone HCl 50 MG AT BEDTIME NEED.. 07/18 1730 AC PO Laboratory Tests 07/20 07/18 0733 1734 Urines Urine Test NEGATIVE Cancelled Orders Procedure Date/time Status URINE 07/20 727 Complete MISSING MEDICATION FORM 07/20 UNK Active Regular Diet 07/19 B Active MISSING MEDICATION FORM 07/19 UNK Active Inpt Psych Teach/Educate 07/18 2152 Active Nutritional Intake, Monitor 07/18 2152 Active Inpt Psych Auricular Acupunctu 07/18 215 Active Lab Add-on Test 07/18 1734 Active Patient Data - inpatient psych 07/18 1715 Active Admit to inpatient psych 07/18 1715 Active Admit to inpatient psych 07/18 1630 Active Continuous Observation Monitor 07/18 1211 Complete Vital Signs 07/18 UNK Active Nursing Misc 07/18 UNK Active Alternative Nursing Therapy 07/18 UNK Active Activity/Ambulation 07/18 UNK Active TEGRETOL LEVEL 07/17 1135 Complete Vital Signs Date Time Temp Pulse Resp B/P B/P Pulse O2 O2 Flow FiO2 Mean Ox Delivery Rate 07/20 1951 99.6 96 142/83 07/20 1606 94 143/76 07/20 1217 92 119/69 07/20 0740 98.2 91 127/69 she was seen today and she was unable to engage in a meaningful dialogue due to her current manic and decompensated psychotic state. She is speaking aloud to herself and the speech is rapid, diconnected thoughts. She avoids eye contact. Plan: Change Risperdal to liquid formulation start Gabapentin 400 mg po TID Increase Tegretol to 400mg po BID starting Sunday check LFT's, Carbamezepine level onTuesday
[2017-07-21 08:51] VITALS: BP 127/79
--- NOTE | 2017-07-21 11:22 | CP SOUTH PROGRESS NOTE PSYCH ---
Psych (Inpt) Progress Note Progress Note Include the following elements, when applicable: Involvement in the active treatment of the patient with behavioral observations of the patient and the patient's response to the treatment. Review of the ongoing treatment process in the context of the treatment plan. Indication of how multi-disciplinary staff members are carrying out the treatment plan. Plans for future interventions and recommendations for revision of the treatment plan. Liaison with other physicians/providers. Progress Note: Chart reviewed. Progress discussed with nursing staff. Per sleep report, had difficult night, frequent washing compulsions and clogged toilet with toilet paper. Interviewed patient this morning. She was pleasant though clearly psychotic. Denies acute complaints, denies SI/HI or AVH. Unable to tolerate interview beyond a minute and asks quite politely to end the interview, after which she hopped out of bed and promptly stripped the sheets off the bed. Vitals and labs reviewed. Findings are: vitals wnl. No new labs. Mental status exam: Appearance: disheveled CF, no abn movements noted Behavior: cooperative with poor eye contact, odd behavior Speech: limited amount, odd prosody Mood: "ok" Affect: bizarre Thought process: disorganized Thought content: denies SI/HI Perceptual disturbances: denies Cognition: grosslyintact Insight:absent Judgement:absent Assessment and plan: Remains poorly organized with evidence of nikos and psychosis. Monitor bathroom trips to aid with compulsive hand washing and destruction of plumbing. Continue present pharmacological and milieu management.
[2017-07-21 12:09] VITALS: BP 141/78
[2017-07-21 16:03] VITALS: BP 131/71
[2017-07-21 20:02] VITALS: BP 146/75
[2017-07-22 07:48] VITALS: BP 130/70
--- NOTE | 2017-07-22 11:37 | CP SOUTH PROGRESS NOTE PSYCH ---
Psych (Inpt) Progress Note Progress Note Include the following elements, when applicable: Involvement in the active treatment of the patient with behavioral observations of the patient and the patient's response to the treatment. Review of the ongoing treatment process in the context of the treatment plan. Indication of how multi-disciplinary staff members are carrying out the treatment plan. Plans for future interventions and recommendations for revision of the treatment plan. Liaison with other physicians/providers. Progress Note: Chart reviewed. Progress discussed with nursing staff. Per sleep report, slept well last night. This morning inerview patient in breakfast room. Again had difficulty tolerating interview with overt anxiety but was pleasant and cooperative. Denies acute complains, SI/HI/AVH or med side effects. "I'm fine, all is good, I'm fine, thank you". Vitals and labs reviewed. Findings are: vitals wnl. No new labs. Mental status exam: Appearance: disheveled CF, no abn movements noted Behavior: cooperative with poor eye contact Speech: limited amount, odd prosody Mood: "ok" Affect: bizarre, poorly related Thought process: disorganized Thought content: denies SI/HI Perceptual disturbances: denies Cognition: grosslyintact Insight:absent Judgement:absent Assessment and plan: Remains poorly organized with evidence of psychosis though behavior becoming somewhat more organized and tolerating meds adequately. Compliance improving as well. Continue present pharmacological and milieu management.
[2017-07-22 11:59] VITALS: BP 140/78
[2017-07-22 16:04] VITALS: BP 131/77
[2017-07-22 19:59] VITALS: BP 151/83
--- NOTE | 2017-07-23 06:37 | CP SOUTH PROGRESS NOTE PSYCH ---
Psych (Inpt) Progress Note Progress Note JENNY COLÓN has been admitted for 5 days. 07/23/17 Progress Note: Current Medications Sig/Mynor Start time Last Medication Dose Route Stop Time Status Admin Acetaminophen 650 MG Q6P PRN 07/18 1730 AC PO Al Hydroxide/Mg 30 ML Q4-6 PRN PRN 07/18 1745 AC Hydroxide PO Albuterol Sulfate 2 PUF Q6P PRN 07/18 1800 AC INH Benztropine Mesylate 1 MG Q6P PRN 07/18 1730 AC PO Benztropine Mesylate 1 MG Q6P PRN 07/18 1730 AC IM Carbamazepine 400 MG DAILY@07/22 AC 07/22 PO 1950 Carbamazepine 400 MG DAILY@07/22 08 AC 07/22 PO 0930 Carbamazepine 200 MG DAILY@07/19 0800 DC 07/21 PO 07/22 0759 0857 Carbamazepine 300 MG DAILY@07/18 DC 07/21 PO 07/22 1959 1928 Gabapentin 400 MG Q8 07/21 06 AC 07/22 PO 2144 Gabapentin 300 MG Q6P PRN 07/18 1730 AC PO Haloperidol 5 MG Q6P PRN 07/18 1730 AC PO Haloperidol 5 MG Q6P PRN 07/18 1730 AC IM Lamotrigine 25 MG DAILY 07/19 1000 AC 07/22 PO 0930 Linaclotide 145 MCG DAILY 07/19 1000 AC 07/22 PO 0930 Lorazepam 2 MG Q6P PRN 07/18 1730 AC PO Lorazepam 2 MG Q6P PRN 07/18 1730 AC IM Magnesium Hydroxide 30 ML AT BEDTIME PRN 07/18 1745 AC PO Oxybutynin Chloride 5 MG TID 07/18 220 AC 07/22 PO 2144 Risperidone 3 MG BID 07/21 2200 AC 07/22 PO 2144 Trazodone HCl 50 MG AT BEDTIME NEED.. 07/18 173 AC PO Laboratory Tests 07/20 07 Urines Urine Test NEGATIVE Orders Procedure Date/time Status TEGRETOL LEVEL 07/24 600 Active HEPATIC FUNCTION PANEL 07/24 600 Active URINE 07/20 727 Complete MISSING MEDICATION FORM 07/20 UNK Active She continues with compulsive handwashing behaviors on the unit. She has been up and OOB and on the [place]. she was agreeable to being seen and she is less perseverative today than when seen on Sunday. She denies any somatic complaints. She denies any problems with sleep. She is able to engage in dialogue today. She is complaint with medication. she reports her mood is good. Denies any AH's. She is cooperative and pleasant. PLAN: CBZ level and LFT's pending tomorrow. continue current treatment plan. discuss Risperdal Consta injection tomorrow.
[2017-07-23 07:41] VITALS: BP 141/83
--- NOTE | 2017-07-23 11:50 | SOCIAL WORKER PROG NOTE PSYCH ---
Social Work Progress Note Progress Note SW met with pt individually. She was laying in her bed and woke to her name being called. She sat up for a brief moment. Pt's speech is mumbled and slurred. She expressed that the medication makes her very tired and that she does not know why. Explained to her that her body is adjusting to it. She denies any sx of Depression and denies any SI. She denies any AH/VH. She says she is not able to participate in group as she is so tired. She asked if she could lay back down and rest.
[2017-07-23 12:40] VITALS: BP 124/69
[2017-07-23 15:43] VITALS: BP 142/72
--- NOTE | 2017-07-23 17:13 | SOCIAL WORKER PROG NOTE PSYCH ---
Social Work Progress Note Progress Note 3pm This display card writer met briefly with patient as she had met with Ketty earlier in the day. She presented as disorganized, talking to herself and with pressured speech. Patient provided very brief responses to any questions, frequently stating, "I'm fine. I'm fine." Patient stated that she did not want this display card writer to contact [facility] and only wanted to see "Dr. Steele" after discharging from the hospital. Patient ended this meeting shortly after it began and left the room.
[2017-07-23 19:43] VITALS: BP 144/87
[2017-07-24 07:44] VITALS: BP 118/66
--- NOTE | 2017-07-24 09:07 | CP SOUTH PROGRESS NOTE PSYCH ---
Psych (Inpt) Progress Note Progress Note JENNY COLÓN has been admitted for 6 days. 07/24/17 Progress Note: Case was discussed in Interdisciplinary Treatment Team Meeting this morning with Dr. Hogan present. The chart was reviewed, including vital signs, labs and medications. Interval History/Chief Complaint: She remains preoccupied with internal stimulation and is exhibiting illogical and disorganized thoughts with pressured speech and inability to engage in a meaningful dialogue. Pertinent Review of Systems (ROS): Current Medications Sig/Mynor Start time Last Medication Dose Route Stop Time Status Admin Acetaminophen 650 MG Q6P PRN 07/18 1730 AC PO Al Hydroxide/Mg 30 ML Q4-6 PRN PRN 07/18 1745 AC Hydroxide PO Albuterol Sulfate 2 PUF Q6P PRN 07/18 1800 AC INH Benztropine Mesylate 1 MG Q6P PRN 07/18 1730 AC PO Benztropine Mesylate 1 MG Q6P PRN 07/18 1730 AC IM Carbamazepine 400 MG DAILY@07/22 AC 07/23 PO 1950 Carbamazepine 400 MG DAILY@0807/22 0800 AC 07/24 PO 0842 Gabapentin 400 MG Q8 07/21 06 AC 07/24 PO 1359 Gabapentin 300 MG Q6P PRN 07/18 1730 AC PO Haloperidol 5 MG Q6P PRN 07/18 1730 AC PO Haloperidol 5 MG Q6P PRN 07/18 1730 AC IM Lamotrigine 25 MG DAILY 07/19 1000 AC 07/24 PO 0842 Linaclotide 145 MCG DAILY 07/19 1000 AC 07/24 PO 0842 Lorazepam 2 MG Q6P PRN 07/18 1730 AC PO Lorazepam 2 MG Q6P PRN 07/18 1730 AC IM Magnesium Hydroxide 30 ML AT BEDTIME PRN 07/18 1745 AC PO Oxybutynin Chloride 5 MG TID 07/18 2200 AC 07/24 PO 1556 Risperidone 3 MG BID 07/21 2200 AC 07/24 PO 0842 Trazodone HCl 50 MG AT BEDTIME NEED.. 07/18 1730 AC PO Laboratory Tests 07/24 640 Chemistry Total Bilirubin (0.2 - 1.3 mg/dL) 0.2 Direct Bilirubin (< 0.4 mg/dL) 0.2 AST (14 - 36 U/L) 29 ALT (9 - 52 U/L) 45 Alkaline Phosphatase (<127 U/L) 56 Total Protein (6.3 - 8.2 g/dL) 5.9 L Albumin (3.5 - 5.0 g/dL) 3.6 Toxicology Carbamazepine (4.0 - 12.0 ug/mL) 9.3 Vital Signs Date Time Temp Pulse Resp B/P B/P Pulse O2 O2 Flow FiO2 Mean Ox Delivery Rate 07/24 1622 87 124/67 07/24 1222 98 130/74 07/24 0744 97.1 84 118/66 07/23 1943 98.9 91 144/87 Medical Decision Making (Note new problems, management options, dangerousness risks) Assessment: no vidence of significant improvement -- tegretol level is therapeutic. Diagnoses: SCHIZOAFFECTIVE DISORDER, BIPOLAR TYPE OCD Treatment Plan: Consider switch to Geodon or Zyprexa if she is not showing any improvement with Rispredal by tomorrow. STATUS: Voluntary A total of 30 minutes was spent with the patient, with more than 50% of the timespent in counseling and/or coordination of care. Treatment Plan: STATUS: Voluntary A total of minutes was spent with the patient, with more than 50% of the timespent in counseling and/or coordination of care.
[2017-07-24 12:22] VITALS: BP 130/74
[2017-07-24 16:22] VITALS: BP 124/67
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
[2017-07-24 20:01] VITALS: BP 150/75
--- NOTE | 2017-07-25 07:20 | CP SOUTH PROGRESS NOTE PSYCH ---
Psych (Inpt) Progress Note Progress Note JENNY COLÓN has been admitted for 7 days. 07/25/17 Progress Note: Current Medications Sig/Mynor Start time Last Medication Dose Route Stop Time Status Admin Acetaminophen 650 MG Q6P PRN 07/18 173 AC PO Al Hydroxide/Mg 30 ML Q4-6 PRN PRN 07/18 1745 AC Hydroxide PO Albuterol Sulfate 2 PUF Q6P PRN 07/18 1800 AC INH Benztropine Mesylate 1 MG Q6P PRN 07/18 173 AC PO Benztropine Mesylate 1 MG Q6P PRN 07/18 1730 AC IM Carbamazepine 400 MG DAILY@07/22 AC 07/24 PO 1938 Carbamazepine 400 MG DAILY@07/22 08 AC 07/24 PO 0842 Gabapentin 400 MG Q8 07/21 06 AC 07/24 PO 2144 Gabapentin 300 MG Q6P PRN 07/18 1730 AC PO Haloperidol 5 MG Q6P PRN 07/18 173 AC PO Haloperidol 5 MG Q6P PRN 07/18 173 AC IM Lamotrigine 25 MG DAILY 07/19 1000 AC 07/24 PO 0842 Linaclotide 145 MCG DAILY 07/19 1000 AC 07/24 PO 0842 Lorazepam 2 MG Q6P PRN 07/18 173 AC PO Lorazepam 2 MG Q6P PRN 07/18 173 AC IM Magnesium Hydroxide 30 ML AT BEDTIME PRN 07/18 174 AC PO Oxybutynin Chloride 5 MG TID 07/18 2200 AC 07/24 PO 2144 Risperidone 3 MG BID 07/21 2200 AC 07/24 PO 2144 Trazodone HCl 50 MG AT BEDTIME NEED.. 07/18 173 AC PO Laboratory Tests 07/24 0640 Chemistry Total Bilirubin (0.2 - 1.3 mg/dL) 0.2 Direct Bilirubin (< 0.4 mg/dL) 0.2 AST (14 - 36 U/L) 29 ALT (9 - 52 U/L) 45 Alkaline Phosphatase (<127 U/L) 56 Total Protein (6.3 - 8.2 g/dL) 5.9 L Albumin (3.5 - 5.0 g/dL) 3.6 Toxicology Carbamazepine (4.0 - 12.0 ug/mL) 9.3 Vital Signs Date Time Temp Pulse Resp B/P B/P Pulse O2 O2 Flow FiO2 Mean Ox Delivery Rate 07/24 2001 99.0 90 150/75 07/24 1622 87 124/67 07/24 1222 98 130/74 07/24 0744 97.1 84 118/66 Case was discussed in Interdisciplinary Treatment Team Meeting this morning with Dr. Hogan present. The chart was reviewed, including vital signs, labs and medications. Interval History/Chief Complaint: SHE REMAINS VERY PSYCHOTIC WITH PROMINENT CONFUSION, DISORGANIZED, ILLOGICAL THOUGHTS, WITH RAPID PRESSURED SPEECH AND COMPULSIVE BEHAVIORS. Pertinent Review of Systems (ROS):DENIES ANY SOMATIC COMPLAINTS OR MEDICATION SE 's Mental Status Examination Appearance: dressed and groomed Behavior/Activity: COMPLULSIVE HAND WASHING THROUGH OUT THE DAY Speech: RAPID, PRESSURED Thought Form: ILLOGICAL , WORD SALAD, Thought Content: + AHs BASED ON OBSERVATION OF RESPONDING TO INTERNAL STIMULI Mood: DISTRESSED Affect: FLAT Suicidal Ideation: denies Homicidal Ideation:denies Orientation: UNABLE TO ASSESS Memory: grossly intact Judgment/Insight: ABSENT Attention/Concentration: POOR Other: Medical Decision Making (Note new problems, management options, dangerousness risks) CURRENT MEDICATION REGIMEN IS NOT YIELDING A BENEFICIAL OR ROBUST CLINICAL EFFECT. I HAVE EXPLAINED TO THE PATIENT WELL THAT HER CONDITION IS NOT RESPONDING SUFFICIENTLY TO CURRENT MEDICATION REGIMEN. SHE DID NOT RAISE ANT SPECIFIC OBJECTION TO THIS RECOMMENDATION TODAY DURING THE ENCOUNTER. Assessment: DECISION WAS MADE AFTER SOME CONSIDERATION AND DISCUSSION OF THE CASE IN THE ITTM THIS MORNING TO PROCEED WITH THE PROBATE PROCESS. Diagnoses: SCHIZOAFFECTIVE DISORDER, BIPOLAR TYPE OCD Treatment Plan: STOP: RISPERDAL START: ZYPREXA 10 MG BID MELATONIN 5 MG QHS INCREASE GABAPENTIN TO 600MG Q8H PAXIL 10 MG QAM STATUS: Voluntary A total of 20 minutes was spent with the patient, with more than 50% of the timespent in counseling and/or coordination of care.
[2017-07-25 08:10] VITALS: BP 132/77
[2017-07-25 12:45] VITALS: BP 129/70
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
[2017-07-25 16:09] VITALS: BP 142/68
[2017-07-25 19:50] VITALS: BP 144/72
--- NOTE | 2017-07-26 08:01 | CP SOUTH PROGRESS NOTE PSYCH ---
Psych (Inpt) Progress Note Progress Note JENNY COLÓN has been admitted for 8 days. 07/26/17 Progress Note: Current Medications Sig/Mynor Start time Last Medication Dose Route Stop Time Status Admin Acetaminophen 650 MG Q6P PRN 07/18 1730 AC PO Al Hydroxide/Mg 30 ML Q4-6 PRN PRN 07/18 1745 AC Hydroxide PO Albuterol Sulfate 2 PUF Q6P PRN 07/18 1800 AC INH Benztropine Mesylate 1 MG Q6P PRN 07/18 1730 AC PO Benztropine Mesylate 1 MG Q6P PRN 07/18 1730 AC IM Carbamazepine 400 MG DAILY@07/22 AC 07/25 PO 1950 Carbamazepine 400 MG DAILY@07/22 AC 07/25 PO 0820 Gabapentin 600 MG Q8 07/25 2200 AC 07/25 PO 2145 Gabapentin 400 MG Q8 07/21 600 DC 07/25 PO 1426 Gabapentin 300 MG Q6P PRN 07/18 1730 AC PO Haloperidol 5 MG Q6P PRN 07/18 173 AC PO Haloperidol 5 MG Q6P PRN 07/18 1730 AC IM Lamotrigine 25 MG DAILY 07/19 1000 AC 07/25 PO 0820 Linaclotide 145 MCG DAILY 07/19 1000 AC 07/25 PO 0821 Lorazepam 2 MG Q6P PRN 07/18 173 DC PO Lorazepam 2 MG Q6P PRN 07/18 1730 DC IM Magnesium Hydroxide 30 ML AT BEDTIME PRN 07/18 1745 AC PO Melatonin 5 MG AT BEDTIME 07/25 2200 AC 07/25 PO 2145 Olanzapine 10 MG BID 07/25 2200 AC 07/25 PO 2145 Oxybutynin Chloride 5 MG TID 07/18 2200 AC 07/25 PO 2143 Paroxetine HCl 10 MG 0800 07/26 08 AC PO Risperidone 3 MG BID 07/21 2200 DC 07/25 PO 0821 Trazodone HCl 50 MG AT BEDTIME NEED.. 07/18 173 DC PO Laboratory Tests 07/24 0640 Chemistry Total Bilirubin (0.2 - 1.3 mg/dL) 0.2 Direct Bilirubin (< 0.4 mg/dL) 0.2 AST (14 - 36 U/L) 29 ALT (9 - 52 U/L) 45 Alkaline Phosphatase (<127 U/L) 56 Total Protein (6.3 - 8.2 g/dL) 5.9 L Albumin (3.5 - 5.0 g/dL) 3.6 Toxicology Carbamazepine (4.0 - 12.0 ug/mL) 9.3 Vital Signs Date Time Temp Pulse Resp B/P B/P Pulse O2 O2 Flow FiO2 Mean Ox Delivery Rate 07/25 1950 97.8 91 144/72 07/25 1609 97 142/68 07/25 1245 104 129/70 07/25 0810 96.9 81 132/77 Case was discussed in Interdisciplinary Treatment Team Meeting this morning with Dr. Hogan present. The chart was reviewed, including vital signs, labs and medications. Interval History/Chief Complaint: She launches into a diatribe of rapid, pressured, speech verbalizing mostly disconnected thoughts. She was slightly more coherent today and less illogical. She was preseverating around "[facility] ... I am a good patient ... I take my medicine ....I shouldn't have to go anywhere because of those people" Pertinent Review of Systems (ROS): OFFERS NO COMPLAINTS AND SAYS " I AM DOING GOOD" Mental Status Examination Appearance: dressed and groomed Behavior/Activity: COMPLULSIVE HAND WASHING THROUGH OUT THE DAY Speech: RAPID, PRESSURED Thought Form: ILLOGICAL , WORD SALAD, Thought Content: + AHs BASED ON OBSERVATION OF RESPONDING TO INTERNAL STIMULI Mood: DISTRESSED Affect: FLAT Suicidal Ideation: denies Homicidal Ideation:denies Orientation: UNABLE TO ASSESS Memory: grossly intact Judgment/Insight: ABSENT Attention/Concentration: POOR Other: Medical Decision Making (Note new problems, management options, dangerousness risks) WILL INCREASE THE PAXIL DOSE. MONITOR FOR CLINICAL EFFECT OF SWITCH FROM RISPERDAL TO ZYPREXA TEGRETOL LEVEL IS THERAPEUTIC Assessment: continue with probate process as discussed in ITTM yesterday morning. She has not demonstrated any clinical change with the recent change in medication changes initiated yesterday and today would be the first day she is receiving these new meds as follows: STOP: RISPERDAL START: ZYPREXA 10 MG BID MELATONIN 5 MG QHS INCREASE GABAPENTIN TO 600MG Q8H PAXIL 10 MG QAM Diagnoses: SCHIZOAFFECTIVE DISORDER, BIPOLAR TYPE OCD Treatment Plan: ADVANCE THE PAXIL DOSE TO 20 MG QAM CONTINUE CURRENT TREATMENT PLAN STATUS: Voluntary A total of 20 minutes was spent with the patient, with more than 50% of the timespent in counseling and/or coordination of care.
[2017-07-26 08:43] VITALS: BP 118/65
[2017-07-26 16:18] VITALS: BP 128/73
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
[2017-07-26 20:00] VITALS: BP 133/74
[2017-07-27 08:15] VITALS: BP 124/78
[2017-07-27 12:41] VITALS: BP 99/58
[2017-07-27 16:23] VITALS: BP 129/74
--- NOTE | 2017-07-27 17:13 | CP SOUTH PROGRESS NOTE PSYCH ---
Psych (Inpt) Progress Note Progress Note Include the following elements, when applicable: Involvement in the active treatment of the patient with behavioral observations of the patient and the patient's response to the treatment. Review of the ongoing treatment process in the context of the treatment plan. Indication of how multi-disciplinary staff members are carrying out the treatment plan. Plans for future interventions and recommendations for revision of the treatment plan. Liaison with other physicians/providers. Progress Note: Medication list reviewed. Lab results reviewed. Case and treatment plan discussed in team meeting. Patient seen at 4:38 PM. Reports she has been okay. Has no complaints except for sleeping too long with gabapentin. Appears awake and alert. Maintains that she does not need antipsychotics. Affect is anxious. Reports mood is okay. Rates sad mood and anxiety both 0/10. Denies feeling hopeless, helpless, worthless or guilty. Denies paranoid ideation despite reports from staff that the patient maintains there are microphones on the unit that are recording everything going on. Denies suicidal and homicidal ideation. Denies auditory and visual hallucinations. Continues to have poor insight and judgment. Reports she just wants to see Dr. Steele Reports sleep is good, appetite is fine and energy is fine. IMPRESSION: Slow progress. Continue present treatment plan. Patient is gravely disabled and we will pursue probate commitment to a state facility for longer-term treatment.
--- NOTE | 2017-07-27 17:42 | SOCIAL WORKER PROG NOTE PSYCH ---
Social Work Progress Note Progress Note This copywriter recieved a call from Adelaida at [facility]. She was informed that this copywriter is not authorized to speak with her at this time. She responded, "we are on board with a state bed." Patient had verbally indicated that she did not want [facility] to be informed of the patient and her care. This was reviewed with Natasha Still LCSW, [facility] as well. 3:25pm This copywriter attempted to meet with the patient, however, she refused to engage in a conversation/meeting. "I don't want to talk to anyone right now."
[2017-07-27 19:47] VITALS: BP 136/79
[2017-07-28 07:45] VITALS: BP 117/72
--- NOTE | 2017-07-28 08:57 | CP SOUTH PROGRESS NOTE PSYCH ---
Psych (Inpt) Progress Note Progress Note Include the following elements, when applicable: Involvement in the active treatment of the patient with behavioral observations of the patient and the patient's response to the treatment. Review of the ongoing treatment process in the context of the treatment plan. Indication of how multi-disciplinary staff members are carrying out the treatment plan. Plans for future interventions and recommendations for revision of the treatment plan. Liaison with other physicians/providers. Progress Note: SUBJECTIVE: Patient resting in bed, eagerly came to proposal lead writer's office. Spoke rapidly. Only complaint, besides being in the hospital, was that she was "sleepy, too sleepy, shouldn't be so sleepy, I'm always sleepy." Patient states she is able to eat, no physical pain, no side effects to medications. Denies SI /HI/AVH/SIB. No abnormal movements reported. Patient stood up, asked if we were done and left room abruptly. OBJECTIVE: Per nursing, pt did well overnight without any acute events. Continues frequent handwashing, hands were mildly erythematous. Slept well, up to bathroom. Pt remained in behavioral control, adherent with staff instructions and medications. Current Medications Sig/Mynor Start time Last Medication Dose Route Stop Time Status Admin Acetaminophen 650 MG Q6P PRN 07/18 1730 AC PO Al Hydroxide/Mg 30 ML Q4-6 PRN PRN 07/18 1745 AC Hydroxide PO Albuterol Sulfate 2 PUF Q6P PRN 07/18 1800 AC INH Benztropine Mesylate 1 MG Q6P PRN 07/18 1730 AC PO Benztropine Mesylate 1 MG Q6P PRN 07/18 1730 AC IM Carbamazepine 400 MG DAILY@07/22 AC 07/27 PO 1955 Carbamazepine 400 MG DAILY@07/22 0800 AC 07/27 PO 0845 Gabapentin 600 MG Q8 07/25 2200 AC 07/28 PO 0653 Gabapentin 300 MG Q6P PRN 07/18 1730 AC PO Haloperidol 5 MG Q6P PRN 07/18 1730 AC PO Haloperidol 5 MG Q6P PRN 07/18 1730 AC IM Lamotrigine 25 MG DAILY 07/19 1000 AC 07/27 PO 0845 Linaclotide 145 MCG DAILY 07/19 1000 AC 07/27 PO 0845 Magnesium Hydroxide 30 ML AT BEDTIME PRN 07/18 1745 AC PO Melatonin 5 MG AT BEDTIME 07/25 2200 AC 07/27 PO 2118 Olanzapine 10 MG BID 07/25 2200 AC 07/27 PO 2119 Oxybutynin Chloride 5 MG TID 07/18 2200 AC 07/27 PO 9 Paroxetine HCl 10 MG 0800 07/26 800 AC 07/27 PO 0844 Vital Signs Date Time Temp Pulse Resp B/P B/P Pulse O2 O2 Flow FiO2 Mean Ox Delivery Rate 07/28 0745 97.4 74 117/72 07/27 1947 97.8 73 136/79 07/27 1623 82 129/74 07/27 1241 90 99/58 MSE: GENERAL: Alert and oriented x2, avoidant eye contact, unkempt in paper scrubs, no apparent distress SPEECH: Rapid and robotic prosody , moderate rate and volume MOTOR: No tics, tremors, stereotypy, or abnormal movements MOOD: "I'm fine." AFFECT: bizarre but calm, mood congruent, mildly constricted range, non-labile , poorly related THOUGHT PROCESS: Circumstantial but very brief THOUGHT CONTENT: No SI/SI/AVH/SIB, no apparent grandiosity, but concerned about "microphones" on unit per nursing COGNITION: Mild deficit and attention, memory and concentration JUDGMENT: Poor INSIGHT: Poor ASSESSMENT: 42 yo F with schizoaffective disorder and continued paranoid delusions, pending probate commitment hearing to longer term [facility]. PLAN: -maintain safety, vs tid, q15min checks -continue meds -continue plan
[2017-07-28 12:35] VITALS: BP 130/92
[2017-07-28 16:00] VITALS: BP 123/73
[2017-07-28 19:48] VITALS: BP 118/80
--- NOTE | 2017-07-29 07:12 | CP SOUTH PROGRESS NOTE PSYCH ---
See Addendum Psych (Inpt) Progress Note Progress Note Include the following elements, when applicable: Involvement in the active treatment of the patient with behavioral observations of the patient and the patient's response to the treatment. Review of the ongoing treatment process in the context of the treatment plan. Indication of how multi-disciplinary staff members are carrying out the treatment plan. Plans for future interventions and recommendations for revision of the treatment plan. Liaison with other physicians/providers. Progress Note: SUBJECTIVE: Patient appeared more pressured today than usual upset that "someone has been mean to her." Seem stressed. Unwilling to discuss it further. Patient was pressured with flight of ideas regarding how she is done everything right and she be discharged. Reported her meds make her too sleepy to attend groups, however attended group today, appear distressed from something that occurred there. Able to eat and sleep, denied pain. Denies SI/HI/AVH/SIB. Patient stated, "I said everything I need to say and walked out of room." OBJECTIVE: Per nursing, pt did well overnight without any acute events. Continues frequent handwashing, hands were mildly erythematous. Slept well, up to bathroom. Pt remained in behavioral control, adherent with staff instructions and medications. Of note frequent tongue darting to left was noted today. VSS. Current Medications Sig/Mynor Start time Last Medication Dose Route Stop Time Status Admin Acetaminophen 650 MG Q6P PRN 07/18 1730 AC PO Al Hydroxide/Mg 30 ML Q4-6 PRN PRN 07/18 1745 AC Hydroxide PO Albuterol Sulfate 2 PUF Q6P PRN 07/18 1800 AC INH Benztropine Mesylate 1 MG Q6P PRN 07/18 1730 AC PO Benztropine Mesylate 1 MG Q6P PRN 07/18 1730 AC IM Carbamazepine 400 MG DAILY@07/22 2000 AC 07/28 PO 2020 Carbamazepine 400 MG DAILY@0800 07/22 0800 AC 07/28 PO 0942 Gabapentin 600 MG Q8 07/25 2200 AC 07/29 PO 0636 Gabapentin 300 MG Q6P PRN 07/18 1730 AC PO Haloperidol 5 MG Q6P PRN 07/18 1730 AC PO Haloperidol 5 MG Q6P PRN 07/18 1730 AC IM Lamotrigine 25 MG DAILY 07/19 1000 AC 07/28 PO 0942 Linaclotide 145 MCG DAILY 07/19 1000 AC 07/28 PO 0942 Magnesium Hydroxide 30 ML AT BEDTIME PRN 07/18 1745 AC PO Melatonin 5 MG AT BEDTIME 07/25 2200 AC 07/28 PO 2145 Olanzapine 10 MG BID 07/25 2200 AC 07/28 PO 2145 Oxybutynin Chloride 5 MG TID 07/18 2200 AC 07/28 PO 2145 Paroxetine HCl 10 MG 0807/26 AC 07/28 PO 0943 Vital Signs Date Time Temp Pulse Resp B/P B/P Pulse O2 O2 Flow FiO2 Mean Ox Delivery Rate 07/28 1948 98.4 84 118/80 07/28 1600 84 123/73 07/28 1235 96 130/92 07/28 0745 97.4 74 117/72 MSE: GENERAL: Alert and oriented x2, avoidant eye contact, at times intense, unkempt in paper scrubs, appeared mildly upset and anxious. SPEECH: Rapid, pressured and robotic prosody (more than ususal), moderate volume MOTOR: Tongue darting to left noted today, no tremor or other stereotypy MOOD: "I'm fine." AFFECT: bizarre, anxious, mood incongruent, constricted range, non-labile, poorly related THOUGHT PROCESS: flight of ideas THOUGHT CONTENT: No SI/HI/AVH/SIB, no apparent grandiosity, darting ruminations on all the things shes done right that should allow her to be d/c home to "Dr Conner " COGNITION: Deficit and attention, memory and concentration JUDGMENT: Poor INSIGHT: Poor ASSESSMENT: 42 yo F with schizoaffective disorder and continued paranoid delusions, pending probate commitment hearing to longer term [facility]. Appeared upset to day over interaction with someone during group. Of note, it has come to marketing underwriter's attention that patient was in a difficult relationship with another patient on the unit 20 years ago which culminated in legal problems. Prior to today it appeared that patient was not aware of the other patient, however that may have changed and may need to be addressed, will discuss with nursing. PLAN: -maintain safety, vs tid, q15min checks -continue meds -continue plan
[2017-07-29 08:01] VITALS: BP 127/71
[2017-07-29 12:45] VITALS: BP 125/68
[2017-07-29 15:40] VITALS: BP 141/77
[2017-07-29 20:55] VITALS: BP 139/81
[2017-07-30 08:17] VITALS: BP 135/74
[2017-07-30 12:32] VITALS: BP 132/74
[2017-07-30 16:16] VITALS: BP 132/74
--- NOTE | 2017-07-30 16:20 | SOCIAL WORKER PROG NOTE PSYCH ---
Social Work Progress Note Progress Note This real estate underwriter met with patient at 1:45pm. Patient was lying in her bed, and upon noticing this real estate underwriter, stated, "Nothing's wrong. I'm fine. I'm tired. No, I'm not tired but everyone thinks I'm tired." Patient then got out of bed, stating that she wanted to end this discussion and left the room.
[2017-07-30 19:57] VITALS: BP 128/83
--- NOTE | 2017-07-31 08:07 | CP SOUTH PROGRESS NOTE PSYCH ---
Psych (Inpt) Progress Note Progress Note 07/30/17 JENNY COLÓN has been admitted for 12 days. Progress Note:
--- NOTE | 2017-07-31 08:07 | CP SOUTH PROGRESS NOTE PSYCH ---
Psych (Inpt) Progress Note Progress Note JENNY COLÓN has been admitted for 13 days. 07/31/17 Progress Note: Current Medications Sig/Mynor Start time Last Medication Dose Route Stop Time Status Admin Acetaminophen 650 MG Q6P PRN 07/18 1730 AC PO Al Hydroxide/Mg 30 ML Q4-6 PRN PRN 07/18 1745 AC Hydroxide PO Albuterol Sulfate 2 PUF Q6P PRN 07/18 1800 AC INH Benztropine Mesylate 1 MG Q6P PRN 07/18 1730 AC PO Benztropine Mesylate 1 MG Q6P PRN 07/18 1730 AC IM Carbamazepine 400 MG DAILY@07/22 AC 07/30 PO 195 Carbamazepine 400 MG DAILY@07/22 08 AC 07/30 PO 1008 Gabapentin 600 MG Q8 07/25 2200 AC 07/30 PO 2204 Gabapentin 300 MG Q6P PRN 07/18 1730 AC PO Haloperidol 5 MG Q6P PRN 07/18 1730 AC PO Haloperidol 5 MG Q6P PRN 07/18 1730 AC IM Lamotrigine 25 MG DAILY 07/19 1000 AC 07/30 PO 1009 Linaclotide 145 MCG DAILY 07/19 1000 AC 07/30 PO 1008 Magnesium Hydroxide 30 ML AT BEDTIME PRN 07/18 1745 AC PO Melatonin 5 MG AT BEDTIME 07/25 2200 AC 07/30 PO 2202 Olanzapine 10 MG BID 07/25 2200 AC 07/30 PO 2202 Oxybutynin Chloride 5 MG TID 07/18 2200 AC 07/30 PO 2202 Paroxetine HCl 10 MG 07/26 08 AC 07/30 PO 1008 Vital Signs Date Time Temp Pulse Resp B/P B/P Pulse O2 O2 Flow FiO2 Mean Ox Delivery Rate 07/30 1957 98.2 81 128/83 07/30 1616 76 132/74 07/30 1232 88 132/74 07/30 0817 97.0 63 135/74 somewhat less perseverative and slightly more related and interactive instead of rapid speech monologue. She is still engagd actively in compulsive hand washing with mild erythema but no apparent disruption of skin integrity. continue with probate process as discussed in ITTM continue current treatment plan
[2017-07-31 08:09] VITALS: BP 131/78
[2017-07-31 11:57] VITALS: BP 125/71
--- NOTE | 2017-07-31 14:55 | SOCIAL WORKER PROG NOTE PSYCH ---
Social Work Progress Note Progress Note This personal lines underwriter made multiple attempts to meet with patient during the day. Patient was in bed and/or sleeping and not willing to meet with this personal lines underwriter.
[2017-07-31 16:20] VITALS: BP 134/74
[2017-07-31 19:58] VITALS: BP 140/81
[2017-08-01 08:06] VITALS: BP 127/82
[2017-08-01 12:09] VITALS: BP 124/68
[2017-08-01 16:34] VITALS: BP 127/80
--- NOTE | 2017-08-01 17:47 | SOCIAL WORKER PROG NOTE PSYCH ---
Social Work Progress Note Progress Note 1:10pm This personal lines underwriter met with patient. She continues to present with pressured speech, however slightly less pressured than prior conversations with this personal lines underwriter. Additionally, patient was more willing to engage in a conversation today than previous days, demonstrated some eye contact and smiled once. Patient reported being tired from her medications and not sure why this is the case. Patient continues to inform this personal lines underwriter that [facility] may not be contacted. She stated that she does not plan on returning to [facility] and will continue with "Dr. Conner." Furthermore, the patient stated that she is not interested in a probate hearing as she has already had one (during a previous admission) and does not need to nor is she willing to go to a [facility]. Patient moved from topic to topic throughout this conversation which ultimately led her to sharing a conversation she had with Dr. Loredo in a previous admission in which she states that he informed her that she could have a car. She stated that she had attempted to buy a car, but was unsuccessful. This topic changed again to her recount of a situation in which she was dancing. She stated that she had nothing more to say , ended the conversation and left the room.
--- NOTE | 2017-08-01 18:00 | CP SOUTH PROGRESS NOTE PSYCH ---
Psych (Inpt) Progress Note Progress Note JENNY COLÓN has been admitted for 14 days. 08/01/17 Progress Note: Current Medications Sig/Mynor Start time Last Medication Dose Route Stop Time Status Admin Acetaminophen 650 MG Q6P PRN 07/18 1730 AC PO Al Hydroxide/Mg 30 ML Q4-6 PRN PRN 07/18 1745 AC Hydroxide PO Albuterol Sulfate 2 PUF Q6P PRN 07/18 1800 AC INH Benztropine Mesylate 1 MG Q6P PRN 07/18 1730 AC PO Benztropine Mesylate 1 MG Q6P PRN 07/18 1730 AC IM Carbamazepine 400 MG DAILY@07/22 AC 07/31 PO 1955 Carbamazepine 400 MG DAILY@0807/22 08 AC 08/01 PO 0930 Gabapentin 600 MG Q8 07/25 220 AC 08/01 PO 1519 Gabapentin 300 MG Q6P PRN 07/18 1730 AC PO Haloperidol 5 MG Q6P PRN 07/18 1730 AC PO Haloperidol 5 MG Q6P PRN 07/18 1730 AC IM Lamotrigine 50 MG DAILY 08/02 1000 UNVr PO Lamotrigine 25 MG DAILY 07/19 1000 DC 08/01 PO 0929 Linaclotide 145 MCG DAILY 07/19 1000 AC 08/01 PO 0930 Magnesium Hydroxide 30 ML AT BEDTIME PRN 07/18 1745 AC PO Melatonin 5 MG AT BEDTIME 07/25 220 AC 07/31 PO 2138 Olanzapine 10 MG BID 07/25 220 AC 08/01 PO 0930 Oxybutynin Chloride 5 MG TID 07/18 2200 AC 08/01 PO 1519 Paroxetine HCl 20 MG 0808/02 08 UNVr PO Paroxetine HCl 10 MG 0800 07/26 0800 DC 08/01 PO 0929 Orders Procedure Date/time Status HEPATIC FUNCTION PANEL 08/02 06 Active GLUCOSE 08/02 600 Active CBC WITHOUT DIFFERENTIAL 08/02 600 Active CARBAMAZEPINE 08/02 600 Active BASIC ELECTROLYTES 08/02 06 Active SUB HSP (15 MIN) 07/27 UNK Complete Vital Signs Date Time Temp Pulse Resp B/P B/P Pulse O2 O2 Flow FiO2 Mean Ox Delivery Rate 08/01 1634 82 127/80 08/01 1209 77 124/68 08/01 08 97.1 63 127/82 07/31 1958 99.0 97 140/81 Case was discussed in Interdisciplinary Treatment Team Meeting this morning with Dr. Hogan present. The chart was reviewed, including vital signs, labs and medications. Interval History/Chief Complaint: Pertinent Review of Systems (ROS): Mental Status Examination Appearance: dressed and groomed Behavior/Activity: COMPLULSIVE HAND WASHING THROUGH OUT THE DAY but less and appears calmer Speech: less severity of RAPID, PRESSURED speech Thought Form: as of last week she was exhibiting AN ILLOGICAL , WORD SALAD, -- BUT SHOWS IMPROVEMENT THIS WEEK --MAY ABLE TO DIALOGUE -- THOUGH SOMEWHAT DISMISSIVE AND IMPATIENT TO END SUCH INTERACTION QUICKLY Thought Content: not responding to internal stimuli as she was consistently doing as of last week Mood: APPEARS CALMER AND LESS PRESURED Affect: EMAINS FLAT Suicidal Ideation: denies Homicidal Ideation:denies Orientation: UNABLE TO ASSESS Memory: grossly intact Judgment/Insight: ABSENT Attention/Concentration: POOR Other: Medical Decision Making (Note new problems, management options, dangerousness risks) INCREASE PAXIL CHECK LABS INDICATED BLOW Assessment:SHOWING SOME PROGRESS SINCE LAST WEEK OVERALL Diagnoses: SCHIZOAFFECTIVE DISORDER, BIPOLAR TYPE OCD Treatment Plan: cbc, bmp, lft's and cbz level increase PAXIL dose to 20 mg daily STATUS: Involuntary PEC For Involuntary Patients Case and treatment plan discussed with: [ x] Psychiatry Nursing [ x] Psychiatry Social Work [x ] I have observed and evaluated this patient and have determined that he/she cannot be released from involuntary treatment to accept treatment on a voluntary basis. [ ] Patient will be converted to voluntary legal status A total of 20 minutes was spent with the patient, with more than 50% of the timespent in counseling and/or coordination of care.
[2017-08-01 19:56] VITALS: BP 131/73
[2017-08-02 08:25] VITALS: BP 143/77
[2017-08-02 12:09] VITALS: BP 127/65
--- NOTE | 2017-08-02 15:03 | SOCIAL WORKER PROG NOTE PSYCH ---
See Addendum Social Work Progress Note Progress Note 2:40pm This journalists and other writers attempted to meet with patient, but was unable to as the patient was sleeping.
[2017-08-02 15:52] VITALS: BP 118/64
--- NOTE | 2017-08-02 16:02 | SOCIAL WORKER PROG NOTE PSYCH ---
Neisha Medrano 08/02/17 1547: Social Work Progress Note Progress Note Form Tamper met with patient in her room while patient was lying in bed. Padmini reported that she hasn't gone to groups today, and that she is "fine with everything" and that she "doesn't need to talk to a counselor". She said she didn't want to be here because she was having a problem with somebody, but that she didn't want to talk about it, and that she already talked about it with the doctor. She reported no SI/HI. She was oriented to person and place, and stated that it was . She was able to recall what she had for breakfast. Padmini then began a stream of loose associations and flight of ideas, similar to last week. She talked about some of the same subjects like the housing authority of [place], and about going home with her keys and shoes. She expressed upset that she was not able to talk to her mother, or reach her by phone. She also stated "I want to talk to my father, even if he's not doing the right things, right things to me. He cares about me." Form Tamper asked her what it is that he is doing to her that she does not like. She stated she did not want to talk about it, and that she was done talking now.
--- NOTE | 2017-08-02 17:55 | CP SOUTH PROGRESS NOTE PSYCH ---
Psych (Inpt) Progress Note Progress Note JENNY COLÓN has been admitted for 15 days. 08/02/17 Progress Note: Current Medications Sig/Mynor Start time Last Medication Dose Route Stop Time Status Admin Acetaminophen 650 MG Q6P PRN 07/18 1730 AC PO Al Hydroxide/Mg 30 ML Q4-6 PRN PRN 07/18 1745 AC Hydroxide PO Albuterol Sulfate 2 PUF Q6P PRN 07/18 1800 AC INH Benztropine Mesylate 1 MG Q6P PRN 07/18 1730 AC PO Benztropine Mesylate 1 MG Q6P PRN 07/18 1730 AC IM Carbamazepine 400 MG DAILY@07/22 AC 08/01 PO 2016 Carbamazepine 400 MG DAILY@0807/22 08 AC 08/02 PO 0824 Gabapentin 600 MG Q8 07/25 2200 AC 08/02 PO 1416 Gabapentin 300 MG Q6P PRN 07/18 1730 AC PO Haloperidol 5 MG Q6P PRN 07/18 1730 AC PO Haloperidol 5 MG Q6P PRN 07/18 1730 AC IM Lamotrigine 50 MG DAILY 08/02 1000 AC 08/02 PO 1103 Lamotrigine 25 MG DAILY 07/19 1000 DC 08/01 PO 0929 Linaclotide 145 MCG DAILY 07/19 1000 AC 08/02 PO 1102 Magnesium Hydroxide 30 ML AT BEDTIME PRN 07/18 1745 AC PO Melatonin 5 MG AT BEDTIME 07/25 2200 AC 08/01 PO 2119 Olanzapine 10 MG BID 07/25 2200 AC 08/02 PO 1103 Oxybutynin Chloride 5 MG TID 07/18 220 AC 08/02 PO 1614 Paroxetine HCl 20 MG 0808/02 08 AC 08/02 PO 0824 Paroxetine HCl 10 MG 0800 07/26 0800 DC 08/01 PO 0929 Orders Procedure Date/time Status HEPATIC FUNCTION PANEL 08/02 0600 Active GLUCOSE 08/02 0600 Active CBC WITHOUT DIFFERENTIAL 08/02 06 Active CARBAMAZEPINE 08/02 0600 Active BASIC ELECTROLYTES 08/02 06 Active MISSING MEDICATION FORM 08/02 UNK Active SUB HSP (15 MIN) 07/29 UNK Complete SUB HSP (15 MIN) 07/28 UNK Complete SUB HSP (15 MIN) 07/27 UNK Complete Vital Signs Date Time Temp Pulse Resp B/P B/P Pulse O2 O2 Flow FiO2 Mean Ox Delivery Rate 08/02 1552 83 118/64 08/02 1209 80 127/65 08/02 0825 97.3 76 143/77 08/01 1956 98.3 78 131/73 Case was discussed in Interdisciplinary Treatment Team Meeting this morning with Dr. Hogan present. The chart was reviewed, including vital signs, labs and medications. Interval History/Chief Complaint: SHE IS UP AND ABOUT FOR DINNER TODAY DRESSED IN HOSPITAL GARB. SHE IS MORE RELATED TODAY AND MORE BLE TO ENGAGE IN COHERENT INTERACTION ON LIMITED BASIS. SEEN LESS OFTEN AT SINK TODAY. "I AM TRYING TO WASH MY HANDS LESS" "i WANT TO GO HOME...I SHOULD BE ABLE TO GO HOME.....I DIDN'T DO ANYTHING WRONG" Pertinent Review of Systems (ROS): DENIES ANY SOMATIC COMPLAINTS Assessment: She is exhibiting progress and clearer thought processes. Less perservation and pressured quality. Diagnoses: SCHIZOAFFECTIVE DISORDER, BIPOLAR TYPE OCD Treatment Plan: Advance Paxil to 30 mg daily STATUS: Involuntary PEC For Involuntary Patients Case and treatment plan discussed with: [ x] Psychiatry Nursing [ x] Psychiatry Social Work [x ] I have observed and evaluated this patient and have determined that he/she cannot be released from involuntary treatment to accept treatment on a voluntary basis. A total of 30 minutes was spent with the patient, with more than 50% of the timespent in counseling and/or coordination of care.
[2017-08-02 20:18] VITALS: BP 140/82
[2017-08-03 07:06] VITALS: BP 136/78
[2017-08-03 10:21] LABS: ABSOLUTE BASOPHIL COUNT 0 /CUMM (0.0-0.2); ABSOLUTE EOSINOPHIL COUNT 0.2 /CUMM (0.0-0.7); ABSOLUTE GRANULOCYTE CT 2.7 /CUMM (1.4-6.5); ABSOLUTE LYMPH COUNT 1.4 /CUMM (1.2-3.4); ABSOLUTE MONOCYTE COUNT 0.4 /CUMM (0.10-0.60); BASOPHIL % 0.6 % (0.0-2.0); EOSINOPHIL % 3.7 % (0-5); GRANULOCYTE % 57.9 % (42.2-75.2); HEMATOCRIT 37.5 % (37-47); MEAN CORPUSCULAR HGB 31.1 PG (27.0-31.0); MEAN CORPUSCULAR HGB CONC 33.8 G/DL (33.0-37.0); MEAN CORPUSCULAR VOLUME 92.1 FL (81.0-99.0); MEAN PLATELET VOLUME 8.5 FL (7.4-10.4); PLATELET COUNT 259 /CUMM (130-400); RBC DISTRIBUTION WIDTH 13.3 % (11.5-14.5); RED BLOOD CELL CT 4.07 /CUMM (4.20-5.40); WHITE BLOOD CELL COUNT 4.7 /CUMM (4.8-10.8)
--- NOTE | 2017-08-03 11:30 | CP SOUTH PROGRESS NOTE PSYCH ---
Psych (Inpt) Progress Note Progress Note JENNY COLÓN has been admitted for 16 days. 08/03/17 Progress Note: Current Medications Sig/Mynor Start time Last Medication Dose Route Stop Time Status Admin Acetaminophen 650 MG Q6P PRN 07/18 1730 AC PO Al Hydroxide/Mg 30 ML Q4-6 PRN PRN 07/18 1745 AC Hydroxide PO Albuterol Sulfate 2 PUF Q6P PRN 07/18 1800 AC INH Benztropine Mesylate 1 MG Q6P PRN 07/18 1730 AC PO Benztropine Mesylate 1 MG Q6P PRN 07/18 1730 AC IM Carbamazepine 400 MG DAILY@07/22 AC 08/02 PO 2001 Carbamazepine 400 MG DAILY@07/22 08 AC 08/02 PO 0824 Gabapentin 600 MG Q8 07/25 220 AC 08/03 PO 0704 Gabapentin 300 MG Q6P PRN 07/18 1730 AC PO Haloperidol 5 MG Q6P PRN 07/18 1730 AC PO Haloperidol 5 MG Q6P PRN 07/18 1730 AC IM Lamotrigine 50 MG DAILY 08/02 1000 AC 08/03 PO 0957 Linaclotide 145 MCG DAILY 07/19 1000 AC 08/03 PO 0956 Magnesium Hydroxide 30 ML AT BEDTIME PRN 07/18 1745 AC PO Melatonin 5 MG AT BEDTIME 07/25 2200 AC 08/02 PO 2151 Olanzapine 10 MG BID 07/25 2200 AC 08/03 PO 0957 Oxybutynin Chloride 5 MG TID 07/18 2200 AC 08/03 PO 0957 Paroxetine HCl 30 MG 08/03 08 AC 08/03 PO 0957 Paroxetine HCl 20 MG 08/02 0800 DC 08/02 PO 0824 Laboratory Tests 08/03 08/02 0945 0600 Chemistry Sodium (137 - 145 mmol/L) 139 Cancelled Potassium (3.5 - 5.1 mmol/L) 4.3 Cancelled Chloride (98 - 107 mmol/L) 102 Cancelled Carbon Dioxide (22 - 30 mmol/L) 25 Cancelled Anion Gap (5 - 16) 12 Cancelled BUN (7 - 17 mg/dL) 19 H Creatinine (0.5 - 1.0 mg/dL) 0.7 Estimated GFR (>60 ml/min) > 60 BUN/Creatinine Ratio (7 - 25 %) 27.1 H Glucose (65 - 99 mg/dL) 94 Cancelled Total Bilirubin (0.2 - 1.3 mg/dL) 0.2 Cancelled Direct Bilirubin (< 0.4 mg/dL) 0.2 Cancelled AST (14 - 36 U/L) 32 Cancelled ALT (9 - 52 U/L) 82 H Cancelled Alkaline Phosphatase (<127 U/L) 71 Cancelled Total Protein (6.3 - 8.2 g/dL) 6.9 Cancelled Albumin (3.5 - 5.0 g/dL) 4.1 Cancelled Hematology CBC w Diff NO MAN DIFF REQ Cancelled WBC (4.8 - 10.8 /CUMM) 4.7 L Cancelled RBC (4.20 - 5.40 /CUMM) 4.07 L Cancelled Hgb (12.0 - 16.0 G/DL) 12.7 Cancelled Hct (37 - 47 %) 37.5 Cancelled MCV (81.0 - 99.0 FL) 92.1 Cancelled MCH (27.0 - 31.0 PG) 31.1 H Cancelled RDW (11.5 - 14.5 %) 13.3 Cancelled Plt Count (130 - 400 /CUMM) 259 Cancelled MPV (7.4 - 10.4 FL) 8.5 Cancelled Gran % (42.2 - 75.2 %) 57.9 Lymphocytes % (20.5 - 51.1 %) 29.4 Monocytes % (1.7 - 9.3 %) 8.4 Eosinophils % (0 - 5 %) 3.7 Basophils % (0.0 - 2.0 %) 0.6 Absolute Granulocytes (1.4 - 6.5 /CUMM) 2.7 Absolute Lymphocytes (1.2 - 3.4 /CUMM) 1.4 Absolute Monocytes (0.10 - 0.60 /CUMM) 0.4 Absolute Eosinophils (0.0 - 0.7 /CUMM) 0.2 Absolute Basophils (0.0 - 0.2 /CUMM) 0 PUBS MCHC (33.0 - 37.0 G/DL) 33.8 Cancelled Toxicology Carbamazepine (4.0 - 12.0 ug/mL) 7.4 Cancelled Orders Procedure Date/time Status HEPATIC FUNCTION PANEL 08/03 0900 Complete GLUCOSE 11/17 0900 Complete CBC WITHOUT DIFFERENTIAL 08/03 900 Complete CARBAMAZEPINE 08/03 900 Complete BASIC ELECTROLYTES PLUS BUN&CR 08/03 900 Complete MISSING MEDICATION FORM 08/02 UNK Active SUB HSP (15 MIN) 07/29 UNK Complete SUB HSP (15 MIN) 07/28 UNK Complete SUB HSP (15 MIN) 07/27 UNK Complete Vital Signs Date Time Temp Pulse Resp B/P B/P Pulse O2 O2 Flow FiO2 Mean Ox Delivery Rate 08/03 706 97.1 65 136/78 08/02 2018 97.9 86 140/82 08/02 1552 83 118/64 08/02 1209 80 127/65 Case was discussed in Interdisciplinary Treatment Team Meeting this morning with Dr. Hogan present. The chart was reviewed, including vital signs, labs and medications. Interval History/Chief Complaint: She was seen while in bed at 11:30 am still sleeping. She denies any problems and says: "I just want to go home...I am ready to go" then, asks if she can get some rest -- says she is sleepy. Pertinent Review of Systems (ROS):DENIES SOMATI COMPLAINTS Mental Status Examination Appearance: dressed and groomed Behavior/Activity: COMPLULSIVE HAND WASHING THROUGH OUT THE DAY but less and appears calmer Speech: less severity of RAPID, PRESSURED speech Thought Form: as of last week she was exhibiting AN ILLOGICAL , WORD SALAD, -- BUT SHOWS IMPROVEMENT THIS WEEK --MORE ABLE TO DIALOGUE -- LESS DISMISSIVE AND IMPATIENT TO END SUCH INTERACTION QUICKLY Thought Content: not responding to internal stimuli as she was consistently doing as of last week Mood: APPEARS CALMER AND LESS PRESURED Affect: BRIGHTER -- MORE REACTIVE Suicidal Ideation: denies Homicidal Ideation:denies Orientation: ORIENTED IN ALL SPHERES Memory: grossly intact Judgment/Insight: ABSENT Attention/Concentration: POOR Other: Medical Decision Making (Note new problems, management options, dangerousness risks) ADVANCING PAXIL DOSE TITRATING CBZ TO THERAPEUTIC LEVELS SHE IS DOING BETTER AND SHOWING PROGRESS CLINICALLY Assessment: She is making progress since admission and more capable of engaging in dialogue. She is less pressured and hypomanic and appears her mood is less depressed, she is calmer and more related. She is sleeping through the night. She seems to be doing better with Paxil and improvements are evident. The dose was advanced to 30 mg today. She remains on zyprexa 10 mg BID and the Tegretol dose will be increased today in response to CBZ level of 7.4. Diagnoses: SCHIZOAFFECTIVE DISORDER, BIPOLAR TYPE OCD Treatment Plan: CONTINUE CURRENT TREATMENT PLAN INCREASE TEGRETOL DOSE TO 400 MG QAM & 600MG QPM DECREASE GABAPENTIN DOSE TO 300 MG TID HOLD ZYPREXA DOSE AT 10 MG BID HOLD PAXIL DOSE AT 30 MG DAILY STATUS: Involuntary PEC For Involuntary Patients Case and treatment plan discussed with: [ x] Psychiatry Nursing [ x] Psychiatry Social Work [x ] I have observed and evaluated this patient and have determined that he/she cannot be released from involuntary treatment to accept treatment on a voluntary basis. A total of 40 minutes was spent with the patient, with more than 50% of the timespent in counseling and/or coordination of care.
[2017-08-03 12:26] VITALS: BP 136/73
[2017-08-03 16:08] VITALS: BP 129/75
--- NOTE | 2017-08-03 16:41 | SOCIAL WORKER PROG NOTE PSYCH ---
Social Work Progress Note Progress Note 4:40pm This conventional mortgage underwriter met with patient. She appeared brighter than previous meetings, however, continues to report that she is tired from her medications. She was encouraged to speak with SHAHLA Porter about this or any medication concerns. Patient was informed that she would be meeting with the psychiatrist lilo around 5pm regarding the upcoming hearing. Patient denied SI/HI/AH/VH. Patient stated that she had nothing left to talk about and requested to end this meeting.
[2017-08-03 19:54] VITALS: BP 137/77
[2017-08-04 08:29] VITALS: BP 127/82
--- NOTE | 2017-08-04 12:13 | CP SOUTH PROGRESS NOTE PSYCH ---
Psych (Inpt) Progress Note Progress Note Include the following elements, when applicable: Involvement in the active treatment of the patient with behavioral observations of the patient and the patient's response to the treatment. Review of the ongoing treatment process in the context of the treatment plan. Indication of how multi-disciplinary staff members are carrying out the treatment plan. Plans for future interventions and recommendations for revision of the treatment plan. Liaison with other physicians/providers. Progress Note: Pt notes that she is "OK." Feels oversedated from meds. Denies SI or HI. Very tired today. Current Medications Sig/Mynor Start time Last Medication Dose Route Stop Time Status Admin Acetaminophen 650 MG Q6P PRN 07/18 1730 AC PO Al Hydroxide/Mg 30 ML Q4-6 PRN PRN 07/18 1745 AC Hydroxide PO Albuterol Sulfate 2 PUF Q6P PRN 07/18 1800 AC INH Benztropine Mesylate 1 MG Q6P PRN 07/18 1730 AC PO Benztropine Mesylate 1 MG Q6P PRN 07/18 1730 AC IM Carbamazepine 600 MG DAILY@08/03 2000 AC 08/03 PO 1949 Carbamazepine 400 MG DAILY@0807/22 0800 AC 08/04 PO 0830 Gabapentin 300 MG Q8 08/03 1400 AC 08/04 PO 0830 Gabapentin 300 MG Q6P PRN 07/18 1730 AC PO Haloperidol 5 MG Q6P PRN 07/18 1730 AC PO Haloperidol 5 MG Q6P PRN 07/18 1730 AC IM Lamotrigine 50 MG DAILY 08/02 1000 AC 08/04 PO 0831 Linaclotide 145 MCG DAILY 07/19 1000 AC 08/04 PO 0831 Magnesium Hydroxide 30 ML AT BEDTIME PRN 07/18 1745 AC PO Melatonin 5 MG AT BEDTIME 07/25 220 AC 08/03 PO 2126 Olanzapine 10 MG BID 07/25 2200 AC 08/04 PO 0831 Oxybutynin Chloride 5 MG TID 07/18 2200 AC 08/04 PO 0831 Paroxetine HCl 30 MG 0800 08/03 0800 AC 08/04 PO 0831 Laboratory Tests 08/03 08/02 0945 0600 Chemistry Sodium (137 - 145 mmol/L) 139 Cancelled Potassium (3.5 - 5.1 mmol/L) 4.3 Cancelled Chloride (98 - 107 mmol/L) 102 Cancelled Carbon Dioxide (22 - 30 mmol/L) 25 Cancelled Anion Gap (5 - 16) 12 Cancelled BUN (7 - 17 mg/dL) 19 H Creatinine (0.5 - 1.0 mg/dL) 0.7 Estimated GFR (>60 ml/min) > 60 BUN/Creatinine Ratio (7 - 25 %) 27.1 H Glucose (65 - 99 mg/dL) 94 Cancelled Total Bilirubin (0.2 - 1.3 mg/dL) 0.2 Cancelled Direct Bilirubin (< 0.4 mg/dL) 0.2 Cancelled AST (14 - 36 U/L) 32 Cancelled ALT (9 - 52 U/L) 82 H Cancelled Alkaline Phosphatase (<127 U/L) 71 Cancelled Total Protein (6.3 - 8.2 g/dL) 6.9 Cancelled Albumin (3.5 - 5.0 g/dL) 4.1 Cancelled Hematology CBC w Diff NO MAN DIFF REQ Cancelled WBC (4.8 - 10.8 /CUMM) 4.7 L Cancelled RBC (4.20 - 5.40 /CUMM) 4.07 L Cancelled Hgb (12.0 - 16.0 G/DL) 12.7 Cancelled Hct (37 - 47 %) 37.5 Cancelled MCV (81.0 - 99.0 FL) 92.1 Cancelled MCH (27.0 - 31.0 PG) 31.1 H Cancelled RDW (11.5 - 14.5 %) 13.3 Cancelled Plt Count (130 - 400 /CUMM) 259 Cancelled MPV (7.4 - 10.4 FL) 8.5 Cancelled Gran % (42.2 - 75.2 %) 57.9 Lymphocytes % (20.5 - 51.1 %) 29.4 Monocytes % (1.7 - 9.3 %) 8.4 Eosinophils % (0 - 5 %) 3.7 Basophils % (0.0 - 2.0 %) 0.6 Absolute Granulocytes (1.4 - 6.5 /CUMM) 2.7 Absolute Lymphocytes (1.2 - 3.4 /CUMM) 1.4 Absolute Monocytes (0.10 - 0.60 /CUMM) 0.4 Absolute Eosinophils (0.0 - 0.7 /CUMM) 0.2 Absolute Basophils (0.0 - 0.2 /CUMM) 0 PUBS MCHC (33.0 - 37.0 G/DL) 33.8 Cancelled Toxicology Carbamazepine (4.0 - 12.0 ug/mL) 7.4 Cancelled Vital Signs Date Time Temp Pulse Resp B/P B/P Pulse O2 O2 Flow FiO2 Mean Ox Delivery Rate 08/04 0829 97.1 69 127/82 08/03 1954 97.9 80 137/77 08/03 1608 79 129/75 08/03 1226 80 136/73 MSE General appearance: good hygiene and grooming; Attitude: cooperative; Eye contact: appropriate; Movement: no psychomotor agitation or slowing, no tics, no tremors; Speech: nl fluency, nl rate/rhythm, nl volume, nl prosody; Mood: "sleepy, tired" Affect: flat, appropriate, constricted, non- labile, congruent, irritable, ; Thought process: linear and goal-directed; Thought content: denied SI or HI, no paranoid ideation; Perception: denied hallucinations- auditory, visual, does not appear to be responding to internal stimuli; I/J: limited A/P: Pt with schizoaffective disorder, bipolar type with improved mood but some oversedation. - Decrease gabapentin and melatonin as may be contributing to oversedation. -Continue current medication regimen -Encourage integration into the milieu
[2017-08-04 12:22] VITALS: BP 126/72
[2017-08-04 16:12] VITALS: BP 132/71
[2017-08-04 19:52] VITALS: BP 144/87
[2017-08-05 07:40] VITALS: BP 132/61
--- NOTE | 2017-08-05 11:30 | CP SOUTH PROGRESS NOTE PSYCH ---
Psych (Inpt) Progress Note Progress Note Include the following elements, when applicable: Involvement in the active treatment of the patient with behavioral observations of the patient and the patient's response to the treatment. Review of the ongoing treatment process in the context of the treatment plan. Indication of how multi-disciplinary staff members are carrying out the treatment plan. Plans for future interventions and recommendations for revision of the treatment plan. Liaison with other physicians/providers. Progress Note: Pt notes that she is "fine." Denied any questions or concerns. Slept well overnight. Denied SI or HI. Current Medications Sig/Mynor Start time Last Medication Dose Route Stop Time Status Admin Acetaminophen 650 MG Q6P PRN 07/18 1730 AC PO Al Hydroxide/Mg 30 ML Q4-6 PRN PRN 07/18 1745 AC Hydroxide PO Albuterol Sulfate 2 PUF Q6P PRN 07/18 1800 AC INH Benztropine Mesylate 1 MG Q6P PRN 07/18 1730 AC PO Benztropine Mesylate 1 MG Q6P PRN 07/18 1730 AC IM Carbamazepine 600 MG DAILY@08/03 2000 AC 08/04 PO 1954 Carbamazepine 400 MG DAILY@0807/22 0800 AC 08/05 PO 0907 Gabapentin 200 MG Q8 08/04 1400 AC 08/05 PO 0736 Gabapentin 300 MG Q8 08/03 1400 DC 08/04 PO 0830 Gabapentin 300 MG Q6P PRN 07/18 1730 AC PO Haloperidol 5 MG Q6P PRN 07/18 1730 AC PO Haloperidol 5 MG Q6P PRN 07/18 1730 AC IM Lamotrigine 50 MG DAILY 08/02 1000 AC 08/05 PO 0908 Linaclotide 145 MCG DAILY 07/19 1000 AC 08/05 PO 0908 Magnesium Hydroxide 30 ML AT BEDTIME PRN 07/18 1745 AC PO Melatonin 3 MG AT BEDTIME 08/04 2200 AC 08/04 PO 2120 Melatonin 5 MG AT BEDTIME 07/25 2200 DC 08/03 PO 2125 Olanzapine 10 MG BID 07/25 2200 AC 08/05 PO 0908 Oxybutynin Chloride 5 MG TID 07/18 2200 AC 08/05 PO 0908 Paroxetine HCl 30 MG 0800 08/03 0800 AC 08/05 PO 0907 Laboratory Tests 08/03 945 Chemistry Sodium (137 - 145 mmol/L) 139 Potassium (3.5 - 5.1 mmol/L) 4.3 Chloride (98 - 107 mmol/L) 102 Carbon Dioxide (22 - 30 mmol/L) 25 Anion Gap (5 - 16) 12 BUN (7 - 17 mg/dL) 19 H Creatinine (0.5 - 1.0 mg/dL) 0.7 Estimated GFR (>60 ml/min) > 60 BUN/Creatinine Ratio (7 - 25 %) 27.1 H Glucose (65 - 99 mg/dL) 94 Total Bilirubin (0.2 - 1.3 mg/dL) 0.2 Direct Bilirubin (< 0.4 mg/dL) 0.2 AST (14 - 36 U/L) 32 ALT (9 - 52 U/L) 82 H Alkaline Phosphatase (<127 U/L) 71 Total Protein (6.3 - 8.2 g/dL) 6.9 Albumin (3.5 - 5.0 g/dL) 4.1 Hematology CBC w Diff NO MAN DIFF REQ WBC (4.8 - 10.8 /CUMM) 4.7 L RBC (4.20 - 5.40 /CUMM) 4.07 L Hgb (12.0 - 16.0 G/DL) 12.7 Hct (37 - 47 %) 37.5 MCV (81.0 - 99.0 FL) 92.1 MCH (27.0 - 31.0 PG) 31.1 H RDW (11.5 - 14.5 %) 13.3 Plt Count (130 - 400 /CUMM) 259 MPV (7.4 - 10.4 FL) 8.5 Gran % (42.2 - 75.2 %) 57.9 Lymphocytes % (20.5 - 51.1 %) 29.4 Monocytes % (1.7 - 9.3 %) 8.4 Eosinophils % (0 - 5 %) 3.7 Basophils % (0.0 - 2.0 %) 0.6 Absolute Granulocytes (1.4 - 6.5 /CUMM) 2.7 Absolute Lymphocytes (1.2 - 3.4 /CUMM) 1.4 Absolute Monocytes (0.10 - 0.60 /CUMM) 0.4 Absolute Eosinophils (0.0 - 0.7 /CUMM) 0.2 Absolute Basophils (0.0 - 0.2 /CUMM) 0 PUBS MCHC (33.0 - 37.0 G/DL) 33.8 Toxicology Carbamazepine (4.0 - 12.0 ug/mL) 7.4 Vital Signs Date Time Temp Pulse Resp B/P B/P Pulse O2 O2 Flow FiO2 Mean Ox Delivery Rate 08/05 0740 97.6 66 132/61 08/04 1952 98.3 81 144/87 08/04 1612 80 132/71 08/04 1222 75 126/72 MSE General appearance: good hygiene and grooming; Attitude: cooperative; Eye contact: appropriate; Movement: no psychomotor agitation or slowing, no tics, no tremors; Speech: nl fluency, nl rate/rhythm, nl volume, nl prosody; Mood: "fine" Affect: flat, appropriate, constricted, non- labile, congruent, irritable, ; Thought process: linear and goal-directed; Thought content: denied SI or HI, no paranoid ideation; Perception: denied hallucinations- auditory, visual, does not appear to be responding to internal stimuli; I/J: limited A/P: Pt with schizoaffective disorder, bipolar type with improved mood but some oversedation. -Decreased gabapentin and melatonin as may be contributing to oversedation, pt feels better today. -Continue current medication regimen -Encourage integration into the milieu
[2017-08-05 12:25] VITALS: BP 127/68
[2017-08-05 16:07] VITALS: BP 138/64
[2017-08-05 20:00] VITALS: BP 129/72
[2017-08-06 07:48] VITALS: BP 135/81
[2017-08-06 12:11] VITALS: BP 137/75
--- NOTE | 2017-08-06 14:55 | SOCIAL WORKER PROG NOTE PSYCH ---
Social Work Progress Note Progress Note 11am This keno writer / runner attempted to meet with patient, but she was sleeping and unable to do so. 2:35pm This keno writer / runner made second attempt to meet with the patient who was sleeping. She stated that her mood was "alright" and felt tired from the medications. She did not want to meet at this time.
--- NOTE | 2017-08-06 17:56 | CP SOUTH PROGRESS NOTE PSYCH ---
Psych (Inpt) Progress Note Progress Note JENNY COLÓN has been admitted for 19 days. 08/06/17 Progress Note: Current Medications Sig/Mynor Start time Last Medication Dose Route Stop Time Status Admin Acetaminophen 650 MG Q6P PRN 07/18 1730 AC PO Al Hydroxide/Mg 30 ML Q4-6 PRN PRN 07/18 1745 AC Hydroxide PO Albuterol Sulfate 2 PUF Q6P PRN 07/18 1800 AC INH Benztropine Mesylate 1 MG Q6P PRN 07/18 1730 AC PO Benztropine Mesylate 1 MG Q6P PRN 07/18 1730 AC IM Carbamazepine 600 MG DAILY@08/03 2000 AC 08/05 PO 2019 Carbamazepine 400 MG DAILY@0807/22 0800 AC 08/06 PO 0749 Gabapentin 200 MG Q8 08/04 1400 AC 08/06 PO 1356 Gabapentin 300 MG Q6P PRN 07/18 1730 AC PO Haloperidol 5 MG Q6P PRN 07/18 1730 AC PO Haloperidol 5 MG Q6P PRN 07/18 1730 AC IM Lamotrigine 50 MG DAILY 08/02 1000 AC 08/06 PO 0914 Linaclotide 145 MCG DAILY 07/19 1000 AC 08/06 PO 0914 Magnesium Hydroxide 30 ML AT BEDTIME PRN 07/18 1745 AC PO Melatonin 3 MG AT BEDTIME 08/04 220 AC 08/05 PO 2143 Olanzapine 10 MG BID 07/25 220 AC 08/06 PO 0915 Oxybutynin Chloride 5 MG TID 07/18 220 AC 08/06 PO 1637 Paroxetine HCl 30 MG 08/03 0800 AC 08/06 PO 0748 Orders Procedure Date/time Status SUB HSP (15 MIN) 08/05 UNK Complete SUB HSP (15 MIN) 08/04 UNK Complete SUB HSP (25 MIN) 07/31 UNK Complete Vital Signs Date Time Temp Pulse Resp B/P B/P Pulse O2 O2 Flow FiO2 Mean Ox Delivery Rate 08/06 1211 77 137/75 08/06 07 96.9 64 135/81 08/05 2000 98.6 71 129/72 Case was discussed in Interdisciplinary Treatment Team Meeting this morning with Dr. Hogan present. The chart was reviewed, including vital signs, labs and medications.~ Interval History/Chief Complaint: Pertinent Review of Systems (ROS): Mental Status Examination Mental Status Examination Appearance: dressed and groomed Behavior/Activity: NOT ENGAGING IN COMPLULSIVE HAND WASHING THROUGH OUT THE DAY SHE WAS PREVIOUSLY Speech: less severity of RAPID, PRESSURED speech Thought Form: a MUCH MORE ORGANIZED AND COHERENT -- MORE ABLE TO DIALOGUE -- LESS DISMISSIVE AND IMPATIENT TO END SUCH INTERACTION QUICKLY Thought Content: not responding to internal stimuli as she was consistently doing Mood: APPEARS CALMER AND LESS PRESURED Affect: BRIGHTER -- APPROPRIATELY REACTIVE Suicidal Ideation: denies Homicidal Ideation:denies Orientation: ORIENTED IN ALL SPHERES Memory: grossly intact Judgment/Insight: ABSENT Attention/Concentration: POOR Other: Medical Decision Making (Note new problems, management options, dangerousness risks) Assessment: ADVANCING PAXIL DOSE TITRATING CBZ TO THERAPEUTIC LEVELS SHE IS DOING BETTER AND SHOWING PROGRESS CLINICALLY. Diagnoses: SCHIZOAFFECTIVE DISORDER, BIPOLAR TYPE OCD Treatment Plan: CONTINUE CURRENT TREATMENT PLAN INCREASED TEGRETOL DOSE TO 400 MG QAM & 600MG QPM LAST SUNDAY D/C GABAPENTIN DOSE TO 300 MG TID HOLD ZYPREXA DOSE AT 10 MG BID HOLD PAXIL DOSE AT 30 MG DAILY STATUS: Involuntary For Involuntary Patients Case and treatment plan discussed with: [ x] Psychiatry Nursing [ x] Psychiatry Social Work [x ] I have observed and evaluated this patient and have determined that he/she cannot be released from involuntary treatment to accept treatment on a voluntary basis. A total of 35 minutes was spent with the patient, with more than 50% of the timespent in counseling and/or coordination of care.
[2017-08-06 19:59] VITALS: BP 116/79
[2017-08-07 07:53] VITALS: BP 127/81
[2017-08-07 11:45] VITALS: BP 136/72
[2017-08-07 15:51] VITALS: BP 116/63
--- NOTE | 2017-08-07 18:10 | SOCIAL WORKER PROG NOTE PSYCH ---
Social Work Progress Note Progress Note 12:47pm This television script writer met with patient. She presented with pressured speech and made minimal eye contact. This television script writer attempted to review the fee waiver for the upcoming hearing with the patient, however, she stated that she was not interested in looking at it. Patient discussed feeling that the hearing was not necessary and then stated, "I have nothing left to say." Patient left the room.
[2017-08-07 19:36] VITALS: BP 132/69
--- NOTE | 2017-08-07 19:49 | CP SOUTH PROGRESS NOTE PSYCH ---
Psych (Inpt) Progress Note Progress Note JENNY COLÓN has been admitted for 20 days. 08/07/17 Progress Note: Current Medications Sig/Mynor Start time Last Medication Dose Route Stop Time Status Admin Acetaminophen 650 MG Q6P PRN 07/18 1730 AC PO Al Hydroxide/Mg 30 ML Q4-6 PRN PRN 07/18 1745 AC Hydroxide PO Albuterol Sulfate 2 PUF Q6P PRN 07/18 1800 AC INH Benztropine Mesylate 1 MG Q6P PRN 07/18 1730 AC PO Benztropine Mesylate 1 MG Q6P PRN 07/18 1730 AC IM Carbamazepine 600 MG DAILY@08/03 2000 AC 08/06 PO 2054 Carbamazepine 400 MG DAILY@0807/22 0800 AC 08/07 PO 0957 Gabapentin 200 MG Q8 08/04 1400 AC 08/07 PO 0657 Gabapentin 300 MG Q6P PRN 07/18 1730 AC PO Haloperidol 5 MG Q6P PRN 07/18 1730 AC PO Haloperidol 5 MG Q6P PRN 07/18 1730 AC IM Lamotrigine 50 MG DAILY 08/02 1000 AC 08/07 PO 1134 Linaclotide 145 MCG DAILY 07/19 1000 AC 08/07 PO 1134 Magnesium Hydroxide 30 ML AT BEDTIME PRN 07/18 1745 AC PO Melatonin 3 MG AT BEDTIME 08/04 2200 AC 08/06 PO 2055 Olanzapine 10 MG BID 07/25 220 AC 08/07 PO 1134 Oxybutynin Chloride 5 MG TID 07/18 2200 AC 08/07 PO 1134 Paroxetine HCl 30 MG 08/03 0800 AC 08/07 PO 0956 Vital Signs Date Time Temp Pulse Resp B/P B/P Pulse O2 O2 Flow FiO2 Mean Ox Delivery Rate 08/07 1145 78 136/72 08/07 0753 97.0 63 127/81 08/06 195 97.5 74 116/79 Case was discussed in Interdisciplinary Treatment Team Meeting this morning with Dr. Hogan present. The chart was reviewed, including vital signs, labs and medications. Interval History/Chief Complaint: She is saying she will not let visiting nurse service in her home. "I don't need that ...I just need to go home" Mental Status Examination Mental Status Examination Appearance: dressed and groomed Behavior/Activity: NOT ENGAGING IN COMPLULSIVE HAND WASHING THROUGH OUT THE DAY SHE WAS PREVIOUSLY Speech: less severity of RAPID, PRESSURED speech Thought Form: a MUCH MORE ORGANIZED AND COHERENT -- MORE ABLE TO DIALOGUE -- LESS DISMISSIVE AND IMPATIENT TO END SUCH INTERACTION QUICKLY Thought Content: not responding to internal stimuli as she was consistently doing Mood: APPEARS CALMER AND LESS PRESURED Affect: BRIGHTER -- APPROPRIATELY REACTIVE Suicidal Ideation: denies Homicidal Ideation:denies Orientation: ORIENTED IN ALL SPHERES Memory: grossly intact Judgment/Insight: ABSENT Attention/Concentration: POOR Other: she remains opposed to provisio of home care services and stating she doesn't need anything Medical Decision Making (Note new problems, management options, dangerousness risks) Assessment: ADVANCING PAXIL DOSE TITRATING CBZ TO THERAPEUTIC LEVELS SHE IS DOING BETTER AND SHOWING PROGRESS CLINICALLY. Diagnoses: SCHIZOAFFECTIVE DISORDER, BIPOLAR TYPE OCD Treatment Plan: CONTINUE CURRENT TREATMENT PLAN INCREASED TEGRETOL DOSE TO 400 MG QAM & 600MG QPM LAST SUNDAY D/C GABAPENTIN DOSE TO 300 MG TID HOLD ZYPREXA DOSE AT 10 MG BID HOLD PAXIL DOSE AT 30 MG DAILY STATUS: Involuntary For Involuntary Patients Case and treatment plan discussed with: [ x] Psychiatry Nursing [ x] Psychiatry Social Work [x ] I have observed and evaluated this patient and have determined that he/she cannot be released from involuntary treatment to accept treatment on a voluntary basis. A total of 35 minutes was spent with the patient, with more than 50% of the timespent in counseling and/or coordination of care.
[2017-08-08 07:53] VITALS: BP 121/77
--- NOTE | 2017-08-08 11:34 | PN- Student ---
Subjective Subjective: JENNY COLÓN has been admitted for 21 days. Current Medications Sig/Mynor Start time Last Medication Dose Route Stop Time Status Admin Acetaminophen 650 MG Q6P PRN 07/18 1730 AC PO Al Hydroxide/Mg 30 ML Q4-6 PRN PRN 07/18 1745 AC Hydroxide PO Albuterol Sulfate 2 PUF Q6P PRN 07/18 1800 AC INH Benztropine Mesylate 1 MG Q6P PRN 07/18 1730 AC PO Benztropine Mesylate 1 MG Q6P PRN 07/18 1730 AC IM Carbamazepine 600 MG DAILY@08/03 2000 AC 08/07 PO 1936 Carbamazepine 400 MG DAILY@07/22 0800 AC 08/08 PO 1109 Gabapentin 200 MG Q8 08/04 1400 AC 08/08 PO 0904 Gabapentin 300 MG Q6P PRN 07/18 1730 AC PO Haloperidol 5 MG Q6P PRN 07/18 1730 AC PO Haloperidol 5 MG Q6P PRN 07/18 1730 AC IM Lamotrigine 50 MG DAILY 08/02 1000 AC 08/08 PO 0905 Linaclotide 145 MCG DAILY 07/19 1000 AC 08/08 PO 0904 Magnesium Hydroxide 30 ML AT BEDTIME PRN 07/18 1745 AC PO Melatonin 3 MG AT BEDTIME 08/04 2200 AC 08/07 PO 2131 Olanzapine 10 MG BID 07/25 2200 AC 08/08 PO 0905 Oxybutynin Chloride 5 MG TID 07/18 220 AC 08/08 PO 0905 Paroxetine HCl 30 MG 08/03 0800 AC 08/08 PO 0905 Laboratory Tests 08/08 09 Toxicology Carbamazepine (4.0 - 12.0 ug/mL) 8.9 Orders Procedure Date/time Status CARBAMAZEPINE 08/08 0600 Complete SUB HSP (15 MIN) 08/05 UNK Complete SUB HSP (15 MIN) 08/04 UNK Complete Vital Signs Date Time Temp Pulse Resp B/P B/P Pulse O2 O2 Flow FiO2 Mean Ox Delivery Rate 08/08 0753 98.1 72 121/77 08/07 193 98.1 71 132/69 08/07 1551 77 116/63 08/07 1145 78 136/72 Patient states she is "okay." Feels better than when she came into the hospital. Objective Objective: Per nursing staff, patient slept well overnight; isolative during the day, but compulsive acts of cleanliness have ceased. Mental status exam: Appearance - dressed in blue scrubs, groomed Behavior/activity - does not make eye contact during the interview Motor - no tics, tremors or abnormal movements Speech - fluent; slightly rushed, but coherent Thought form - somewhat dismissive, but answers questions asked in an appropriate fashion Thought content - denies SI/HI/AH/VH Mood - "My mood is excellent I am fine" Affect - calm, flat Orientation - A&O x 3 Memory - intact Judgment/Insight - absent, still is unsure of why she is in the hospital and does not feel the need for outpatient services Attention/concentration - adequate to engage in conversation, not distracted by external stimuli Other - patient still denying need for visiting nurse at discharge. States she will be compliant and take her medications at home as prescribed. States she will take them "when she is supposed to" but will not say when this is. Assessment/Plan Assessment: 42 y/o female with history of schizoaffective disorder (bipolar type), OCD, anxiety and asthma previously non-compliant with medications showing clinical improvement with inpatient medications. Plan: -Continue current treatment plan -Continue medications listed above -Vitals TID, q15 minute checks throughout the day -Encourage need for outpatient services to help with future medication compliance -
[2017-08-08 12:55] VITALS: BP 135/74
--- NOTE | 2017-08-08 15:55 | CP SOUTH PROGRESS NOTE PSYCH ---
Psych (Inpt) Progress Note Progress Note JENNY COLÓN has been admitted for 21 days. 08/08/17 Progress Note: Current Medications Sig/Mynor Start time Last Medication Dose Route Stop Time Status Admin Acetaminophen 650 MG Q6P PRN 07/18 1730 AC PO Al Hydroxide/Mg 30 ML Q4-6 PRN PRN 07/18 1745 AC Hydroxide PO Albuterol Sulfate 2 PUF Q6P PRN 07/18 1800 AC INH Benztropine Mesylate 1 MG Q6P PRN 07/18 1730 AC PO Benztropine Mesylate 1 MG Q6P PRN 07/18 1730 AC IM Carbamazepine 600 MG DAILY@08/03 2000 AC 08/07 PO 1936 Carbamazepine 400 MG DAILY@0800 07/22 0800 AC 08/08 PO 1109 Gabapentin 200 MG Q8 08/04 1400 AC 08/08 PO 1518 Gabapentin 300 MG Q6P PRN 07/18 1730 AC PO Haloperidol 5 MG Q6P PRN 07/18 1730 AC PO Haloperidol 5 MG Q6P PRN 07/18 1730 AC IM Lamotrigine 50 MG DAILY 08/02 1000 AC 08/08 PO 0905 Linaclotide 145 MCG DAILY 07/19 1000 AC 08/08 PO 0904 Magnesium Hydroxide 30 ML AT BEDTIME PRN 07/18 1745 AC PO Melatonin 3 MG AT BEDTIME 08/04 2200 AC 08/07 PO 2131 Olanzapine 10 MG BID 07/25 220 AC 08/08 PO 0905 Oxybutynin Chloride 5 MG TID 07/18 220 AC 08/08 PO 0905 Paroxetine HCl 30 MG 0808/03 0800 AC 08/08 PO 0905 Laboratory Tests 08/08 09 Toxicology Carbamazepine (4.0 - 12.0 ug/mL) 8.9 Orders Procedure Date/time Status CARBAMAZEPINE 08/08 0600 Complete SUB HSP (15 MIN) 08/05 UNK Complete SUB HSP (15 MIN) 08/04 UNK Complete Vital Signs Date Time Temp Pulse Resp B/P B/P Pulse O2 O2 Flow FiO2 Mean Ox Delivery Rate 08/08 1255 71 135/74 08/08 0753 98.1 72 121/77 08/07 1936 98.1 71 132/69 Per nursing staff, patient slept well overnight; isolative during the day, but compulsive acts of cleanliness have ceased. Mental status exam: Appearance - dressed in blue scrubs, groomed Behavior/activity - does not make eye contact during the interview Motor - no tics, tremors or abnormal movements Speech - fluent; slightly rushed, but coherent Thought form - somewhat dismissive, but answers questions asked in an appropriate fashion Thought content - denies SI/HI/AH/VH Mood - "My mood is excellent I am fine" Affect - calm, flat Orientation - A&O x 3 Memory - intact Judgment/Insight - absent, still is unsure of why she is in the hospital and does not feel the need for outpatient services Attention/concentration - adequate to engage in conversation, not distracted by external stimuli Other - patient still denying need for visiting nurse at discharge. States she will be compliant and take her medications at home as prescribed. States she will take them "when she is supposed to" but will not say when this is. Assessment: DOING BETTER WITH PAXIL, TEGRETOL , ZYPREXA DOSE SHE IS DOING BETTER AND SHOWING PROGRESS CLINICALLY. Diagnoses: SCHIZOAFFECTIVE DISORDER, BIPOLAR TYPE OCD Treatment Plan: CONTINUE CURRENT TREATMENT PLAN INCREASED TEGRETOL DOSE TO 400 MG QAM & 600MG QPM LAST SUNDAY D/C GABAPENTIN DOSE TO 300 MG TID HOLD ZYPREXA DOSE AT 10 MG BID HOLD PAXIL DOSE AT 30 MG DAILY STATUS: Involuntary For Involuntary Patients Case and treatment plan discussed with: [ x] Psychiatry Nursing [ x] Psychiatry Social Work [x ] I have observed and evaluated this patient and have determined that he/she cannot be released from involuntary treatment to accept treatment on a voluntary basis.
[2017-08-08 16:01] VITALS: BP 131/59
--- NOTE | 2017-08-08 17:47 | SOCIAL WORKER PROG NOTE PSYCH ---
Social Work Progress Note Progress Note As discussed with the treatment team as well as [facility] was contacted by phone and this underwriter solicitation director spoke with Ines at 1:15pm to inform that the hearing is scheduled for 08/14/17 at 2:15pm. Vanesa Sampson also instructed this underwriter solicitation director to contact the patient's district attorney, Nuclear Physics Teacher Monica ([phone]), regarding the call to [facility]. He was reached by phone at 3:49pm, thanked this underwriter solicitation director for the call and stated that he did not need any additional information. In addition, Vanesa Sampson also requested a medication list and the fee waiver form. Attempt to fax this was unsuccessful and this underwriter solicitation director was unable to reach anyone by phone at [facility]. 2:40pm This underwriter solicitation director met with patient. Patient was more talkative than previous conversations, discussing her interest in going home. She become more disorganized and agitated as the meeting progressed with an underlying theme of wanting to be discharged. Patient moved from topic to topic regarding the relationship with her mother and father, her father going through her mail as well as paying her rent and attending groups and taking medications here at the hospital. Patient stated that she left a voicemail for Dr. Conner asking that he call Dr. Hogan. This underwriter solicitation director was unable to respond or add to the discussion, despite when the patient would direct questions to this underwriter solicitation director.
[2017-08-08 19:54] VITALS: BP 139/72
[2017-08-09 08:13] VITALS: BP 133/84
--- NOTE | 2017-08-09 09:42 | CP SOUTH PROGRESS NOTE PSYCH ---
Psych (Inpt) Progress Note Progress Note I reviewed the patients electronic medical record, I listened to verbal report by Hawa Meléndez, NANNETTE about patient's progress Sleep log showed that the patient slept well." Vitals: BP 133/84, Pulse 61/min, Temp 97.6, Yesterday's Tegretol level was 8.9 microgram/mL Diagnoses of record: SCHIZOAFFECTIVE D/O, BIPOLAR TYPE Summary: 42 YO FEMALE admitted IN MANIC COGNITIVELY IMPAIRED STATE , recent hx of inpatient psychiatric treatment at [facility] and was recently discharged on Jul 05 with a plan to receive follow up care with OPS and CARE. Pt has failed to attend all follow up appointments and reports not taking her medications (Risperdal, Lamictal and Tegretol). Pt reports distress related to housing and financial issues. Mental Status Examination in bed after breakfast, c/o "feeling tired all day long", "I just want to go home" cooperative, polite, reduced psychomotor activity, in good behavioral control, reduced speech; constricted affect, denied feeling depressed, no suicidal Ideation, denied homicidal ideation, denied hallucinations, I was unable to observe delusions, no major thought disorder, oriented, grossly intact memory Plan: continue medications unchanged Follow up tomorrow by or TRACK INSPECTING SUPERVISOR
[2017-08-09 11:56] VITALS: BP 147/76
[2017-08-09 16:04] VITALS: BP 133/74
[2017-08-09 19:47] VITALS: BP 138/79
[2017-08-10 07:47] VITALS: BP 125/78
--- NOTE | 2017-08-10 12:02 | SOCIAL WORKER PROG NOTE PSYCH ---
Social Work Progress Note Progress Note 10:35am This abstract writer attempted to meet with patient, however, she was sleeping. 11:34am This abstract writer attempted to call [facility] [address] as attempt to fax fee waiver and med list on 08/08/17 was unsuccessful. No answer at the court today. 1pm This abstract writer attempted to meet with patient. She was in bed and stated, "I don't want to meet today. I'm tired. I hope the hearing goes well."
[2017-08-10 12:27] VITALS: BP 139/77
--- NOTE | 2017-08-10 15:00 | PN- Student ---
Subjective Subjective: JENNY COLÓN has been admitted for 23 days. States "I'm okay". Makes frequent requests to leave the unit to go home. Objective Objective: Mental status exam: Appearance - dressed in blue scrubs, groomed Behavior/activity - minimal eye contact Motor - no tics, tremors or abnormal movements Speech - slightly rushed, but coherent Thought form - dismissive Thought content - denies SI/HI/AH/VH Mood - "My mood is fine it's always fine" Affect - flat Orientation - A&O x 3 Judgment/Insight - absent Attention/concentration - adequate to engage in conversation, not distracted by external stimuli Other - understands that she has a hearing soon for involuntary commitment , but states "it shouldn't be that way." Believes she should be able to go home Results Results: Laboratory Tests 08/08/17 0902: Carbamazepine 8.9 Assessment/Plan Assessment: 42 y/o female with history of schizoaffective disorder (bipolar type), OCD, anxiety and asthma showing clinical improvement, but still lacking insight into her illness and need for continuing treatment. Plan: -Continue current treatment plan -Continue medications listed above -Vitals TId, q15 minute checks throughout the day -Involuntary commit hearing scheduled for 08/14
--- NOTE | 2017-08-10 15:06 | CP SOUTH PROGRESS NOTE PSYCH ---
Psych (Inpt) Progress Note Progress Note Include the following elements, when applicable: Involvement in the active treatment of the patient with behavioral observations of the patient and the patient's response to the treatment. Review of the ongoing treatment process in the context of the treatment plan. Indication of how multi-disciplinary staff members are carrying out the treatment plan. Plans for future interventions and recommendations for revision of the treatment plan. Liaison with other physicians/providers. Progress Note: Dr. Hurtado's note reviewed. Case and treatment plan discussed in team meeting. Staff reports that patient clogged the toilet last night. Staff reports that her handwashing has improved a little but I witnessed her doing some today. Described as isolative and withdrawn. Stays in bed a lot. Patient seen at 1:54 PM with PA student, Barrera. Patient was asleep in her room but got up and met with us in the office. She is dressed in blue paper scrubs. Wants to go home. I reminded her that she has a hearing on Sunday. She has no insight. Minimizes everything. Reports she is adherent with medications here. Tolerating her medications well. Affect is calm and blunted. Reports mood is fine, always fine. Rates sad mood and anxiety both 0/10. Denies feeling hopeless, helpless, worthless or guilty. Denies suicidal and homicidal ideation. Denies auditory and visual hallucinations and paranoid ideation. Reports sleep is excellent, appetite is fine and energy is fine. IMPRESSION: Slow progress. Continue present treatment plan. Await outcome of hearing scheduled for Sunday08/14/17.
[2017-08-10 16:17] VITALS: BP 131/73
[2017-08-10 19:49] VITALS: BP 144/80
[2017-08-11 08:12] VITALS: BP 137/77
--- NOTE | 2017-08-11 11:02 | CP SOUTH PROGRESS NOTE PSYCH ---
Psych (Inpt) Progress Note Progress Note I reviewed Dr. Hogan's note from yesterday, sleep log showed that the patient slept." Vitals: BP 137/77, Pulse 71/min, Temp 98.2, no new labs today Diagnoses of record: SCHIZOAFFECTIVE D/O, BIPOLAR TYPE Summary: 42 YO FEMALE admitted IN MANIC COGNITIVELY IMPAIRED STATE , recent hx of inpatient psychiatric treatment at [facility] and was recently discharged on Jul 05 with a plan to receive follow up care with OPS and CARE. Pt has failed to attend all follow up appointments and reports not taking her medications (Risperdal, Lamictal and Tegretol). Mental Status Examination feels that she does not want "all these medications" c/o "feeling tired because of medications, cooperative, polite, reduced psychomotor activity, in good behavioral control, reduced speech; constricted affect, denied feeling depressed , denied thinking of suicide, denied homicidal ideation, denied hallucinations, I was unable to observe delusions, no major thought disorder, oriented, grossly intact memory Plan: Change Olanzapine to 5 mg QAM and 15 mg QHS D/C Gabapentin D/C Melatonin continue other medications unchanged Follow up tomorrow by or JOSUÉ
[2017-08-11 12:21] VITALS: BP 124/73
[2017-08-11 15:41] VITALS: BP 137/77
[2017-08-11 19:19] VITALS: BP 141/79
[2017-08-12 08:56] VITALS: BP 140/79
--- NOTE | 2017-08-12 10:10 | CP SOUTH PROGRESS NOTE PSYCH ---
Psych (Inpt) Progress Note Progress Note Unit's sleep log showed that the patient slept well." Vitals: BP 140/79, Pulse 72/min, Temp 98.0 degrees, no new labs today Diagnoses of record: SCHIZOAFFECTIVE , BIPOLAR TYPE Summary: 42 YO FEMALE admitted IN a COGNITIVELY IMPAIRED STATE , recent hx of inpatient psychiatric treatment at [facility] and was recently discharged on Jul 05 with a plan to receive follow up care with OPS and CARE. Mental Status Examination feels and seems oversedated cooperative, polite, reduced psychomotor activity, in good behavioral control, reduced speech; constricted affect, denied feeling depressed, denied thinking of suicide, denied homicidal ideation, denied hallucinations, I was unable to observe delusions, no major thought disorder, oriented Plan: Reduce Olanzapine to 15 mg only at bedtime due to over-sedation continue other medications unchanged Follow up tomorrow by regular CPS MD or URBAN REDEVELOPMENT SPECIALIST
[2017-08-12 11:43] VITALS: BP 147/77
[2017-08-12 15:31] VITALS: BP 134/73
[2017-08-12 19:27] VITALS: BP 144/75
--- NOTE | 2017-08-13 07:32 | CP SOUTH PROGRESS NOTE PSYCH ---
Psych (Inpt) Progress Note Progress Note JENNY COLÓN has been admitted for 26 days. 08/13/17 Progress Note: Current Medications Sig/Mynor Start time Last Medication Dose Route Stop Time Status Admin Acetaminophen 650 MG Q6P PRN 07/18 1730 AC PO Al Hydroxide/Mg 30 ML Q4-6 PRN PRN 07/18 1745 AC Hydroxide PO Albuterol Sulfate 2 PUF Q6P PRN 07/18 1800 AC INH Benztropine Mesylate 1 MG Q6P PRN 07/18 1730 AC PO Benztropine Mesylate 1 MG Q6P PRN 07/18 1730 AC IM Carbamazepine 600 MG DAILY@08/03 2000 AC 08/12 PO 1940 Carbamazepine 400 MG DAILY@07/22 08 AC 08/12 PO 0915 Gabapentin 300 MG Q6P PRN 07/18 1730 AC PO Haloperidol 5 MG Q6P PRN 07/18 1730 AC PO Haloperidol 5 MG Q6P PRN 07/18 1730 AC IM Lamotrigine 50 MG DAILY 08/02 1000 AC 08/12 PO 0915 Linaclotide 145 MCG DAILY 07/19 1000 AC 08/12 PO 0915 Magnesium Hydroxide 30 ML AT BEDTIME PRN 07/18 1745 AC PO Olanzapine 5 MG DAILY 08/12 1000 CAN PO Olanzapine 15 MG AT BEDTIME 08/11 2200 AC 08/12 PO 2201 Oxybutynin Chloride 5 MG TID 07/18 220 AC 08/12 PO 2201 Paroxetine HCl 30 MG 08/03 0800 AC 08/12 PO 0915 Orders Procedure Date/time Status SUB HSP (15 MIN) 08/10 UNK Complete SUB HSP (15 MIN) 08/09 UNK Complete Vital Signs Date Time Temp Pulse Resp B/P B/P Pulse O2 O2 Flow FiO2 Mean Ox Delivery Rate 08/12 1927 98.7 80 144/75 08/12 1531 82 134/73 08/12 1143 87 147/77 08/12 0856 98.0 72 140/79 Case was discussed in Interdisciplinary Treatment Team Meeting this morning with Dr. Hogan present. The chart was reviewed, including vital signs, labs and medications. Interval History/Chief Complaint: She is still saying she doesn't want any visiting nurses in her home. Otherwise, she is not offering any new complaints. Sitting up eating a snack in kitchen, calm, relaxed casual posture and attitude. Pertinent Review of Systems (ROS): no somatic complaints Mental Status Examination Appearance: dressed and groomed Behavior/Activity: appropriate Speech: normal Thought Form: logical, coherent and goal-directed Thought Content: denies AHs or VHs no delusions elicited Mood: euthymic Affect: blunted Suicidal Ideation: denies Homicidal Ideation:denies Orientation: oriented in all spheres Memory: grossly intact Judgment/Insight: Attention/Concentration: intact Other: Medical Decision Making (Note new problems, management options, dangerousness risks) no change in status and maintain treatment plan in place without changes. Assessment: Doing about the same -- no new change in status recently . Diagnoses: SCHIZOAFFECTIVE DISORDER, BIPOLAR TYPE OCD Treatment Plan: planned probate hearing tomorrow. STATUS: Voluntary A total of 35 minutes was spent with the patient, with more than 50% of the timespent in counseling and/or coordination of care.
[2017-08-13 08:46] VITALS: BP 139/77
[2017-08-13 12:20] VITALS: BP 132/79
[2017-08-13 16:03] VITALS: BP 136/77
--- NOTE | 2017-08-13 18:30 | SOCIAL WORKER PROG NOTE PSYCH ---
Social Work Progress Note Progress Note 3:05pm This database report writer met with patient. Upon starting our meeting, patient stated, "I have a hearing tomorrow. I don't know why I'm having a hearing. I should be able to go back home." Patient shared that her father visited her this weekend and that she is doing well. Patient then stated, "Are we done now? There is nothing else to talk about," and she left the room.
[2017-08-13 19:58] VITALS: BP 136/74
[2017-08-14 12:39] VITALS: BP 136/65
--- NOTE | 2017-08-14 16:11 | CP SOUTH PROGRESS NOTE PSYCH ---
Psych (Inpt) Progress Note Progress Note JENNY COLÓN has been admitted for 27 days. 08/14/17 Progress Note: Current Medications Sig/Mynor Start time Last Medication Dose Route Stop Time Status Admin Acetaminophen 650 MG Q6P PRN 07/18 1730 AC PO Al Hydroxide/Mg 30 ML Q4-6 PRN PRN 07/18 1745 AC Hydroxide PO Albuterol Sulfate 2 PUF Q6P PRN 07/18 1800 AC INH Benztropine Mesylate 1 MG Q6P PRN 07/18 1730 AC PO Benztropine Mesylate 1 MG Q6P PRN 07/18 1730 AC IM Carbamazepine 600 MG DAILY@08/03 2000 AC 08/13 PO 2011 Carbamazepine 400 MG DAILY@0807/22 0800 AC 08/14 PO 0907 Gabapentin 300 MG Q6P PRN 07/18 1730 AC PO Haloperidol 5 MG Q6P PRN 07/18 1730 AC PO Haloperidol 5 MG Q6P PRN 07/18 1730 AC IM Lamotrigine 50 MG DAILY 08/02 1000 AC 08/14 PO 0908 Linaclotide 145 MCG DAILY 07/19 1000 AC 08/14 PO 0907 Magnesium Hydroxide 30 ML AT BEDTIME PRN 07/18 1745 AC PO Olanzapine 15 MG AT BEDTIME 08/11 2200 AC 08/13 PO 2143 Oxybutynin Chloride 5 MG TID 07/18 220 AC 08/14 PO 1555 Paroxetine HCl 30 MG 0808/03 0800 AC 08/14 PO 0908 Laboratory Tests 08/14 06 Hematology CBC w Diff Cancelled WBC Cancelled RBC Cancelled Hgb Cancelled Hct Cancelled MCV Cancelled MCH Cancelled RDW Cancelled Plt Count Cancelled MPV Cancelled PUBS MCHC Cancelled Toxicology Carbamazepine Cancelled Laboratory Tests 08/14 06 Hematology CBC w Diff Cancelled WBC Cancelled RBC Cancelled Hgb Cancelled Hct Cancelled MCV Cancelled MCH Cancelled RDW Cancelled Plt Count Cancelled MPV Cancelled PUBS MCHC Cancelled Toxicology Carbamazepine Cancelled Orders Procedure Date/time Status HEPATIC FUNCTION PANEL 08/15 600 Active CBC WITHOUT DIFFERENTIAL 08/15 600 Active CARBAMAZEPINE 08/15 06 Active SUB HSP (15 MIN) 08/12 UNK Complete SUB HSP (15 MIN) 08/11 UNK Complete Case was discussed in Interdisciplinary Treatment Team Meeting this morning with Dr. Hogan present. The chart was reviewed, including vital signs, labs and medications. Interval History/Chief Complaint: Refusing blood draw today. She attended the probate hearing today, She is about the same without much clinical change. Pertinent Review of Systems (ROS): no somatic complaints Mental Status Examination Appearance: dressed and groomed Behavior/Activity: appropriate Speech: normal Thought Form: logical, coherent and goal-directed Thought Content: denies AHs or VHs no delusions elicited Mood: euthymic Affect: blunted Suicidal Ideation: denies Homicidal Ideation:denies Orientation: oriented in all spheres Memory: grossly intact Judgment/Insight: Attention/Concentration: poor Other: Medical Decision Making (Note new problems, management options, dangerousness risks) no change in status and maintain treatment plan in place without changes. Assessment: Doing about the same -- no new change in status recently . Diagnoses: SCHIZOAFFECTIVE DISORDER, BIPOLAR TYPE OCD Treatment Plan: planned probate hearing held today . STATUS: Voluntary A total of 35 minutes was spent with the patient, with more than 50% of the timespent in counseling and/or coordination of care.
[2017-08-14 16:15] VITALS: BP 137/74
--- NOTE | 2017-08-14 16:52 | SOCIAL WORKER PROG NOTE PSYCH ---
Social Work Progress Note Progress Note 2:40pm Probate commitment hearing occurred and patient was committed to [facility] "or another suitable hospital." Hearing was attended by Starr Donahue ( follow up clerk), Gold Letterersai Anderson, Ines Harris and Nona Lerma (from [facility]), Barrera ( PA student), SHAHLA Porter, Michelle Laird, Dr. Hogan and this designer/writer. 3:30pm This designer/writer attempted to meet with patient. She was lying in bed, tearful. She refused to meet and was informed that she could meet with this designer/writer later this afternoon if she wishes to do so. Nursing was informed and will check in with her tonight. 4:31pm This designer/writer left for Idalmis Mak who is out the office until tomorrow, 08/15. This designer/writer will follow up tomorrow.
[2017-08-14 20:04] VITALS: BP 147/81
[2017-08-15 07:50] VITALS: BP 122/76
[2017-08-15 07:55] LABS: ABSOLUTE BASOPHIL COUNT 0 /CUMM (0.0-0.2); ABSOLUTE EOSINOPHIL COUNT 0.1 /CUMM (0.0-0.7); ABSOLUTE GRANULOCYTE CT 2.4 /CUMM (1.4-6.5); ABSOLUTE LYMPH COUNT 1.4 /CUMM (1.2-3.4); ABSOLUTE MONOCYTE COUNT 0.5 /CUMM (0.10-0.60); EOSINOPHIL % 2.9 % (0-5); GRANULOCYTE % 53.6 % (42.2-75.2); HEMATOCRIT 36.7 % (37-47); MEAN CORPUSCULAR HGB 31.1 PG (27.0-31.0); MEAN CORPUSCULAR VOLUME 91.6 FL (81.0-99.0); MEAN PLATELET VOLUME 8.5 FL (7.4-10.4); PLATELET COUNT 221 /CUMM (130-400); RBC DISTRIBUTION WIDTH 13.9 % (11.5-14.5); WHITE BLOOD CELL COUNT 4.4 /CUMM (4.8-10.8)
[2017-08-15 12:36] VITALS: BP 131/77
--- NOTE | 2017-08-15 15:53 | SOCIAL WORKER PROG NOTE PSYCH ---
Social Work Progress Note Progress Note 11:29am This adjusto writer operator spoke with Idalmis Londonoalen regarding the outcome of the probate committment hearing. She stated that she did not need to be informed and to submit the referral to [facility]. 11:45am This adjusto writer operator met with patient. She stated that she wants to return home and to continue work with "Dr. Conner." This was followed by, "Ok, I don't want to talk anymore." Patient was informed that she could speak with this adjusto writer operator later today should she change her mind.
[2017-08-15 16:09] VITALS: BP 137/73
[2017-08-15 20:02] VITALS: BP 135/95
--- NOTE | 2017-08-15 20:42 | CP SOUTH PROGRESS NOTE PSYCH ---
Psych (Inpt) Progress Note Progress Note JENNY COLÓN has been admitted for 28 days. 08/15/17 Progress Note: Current Medications Sig/Mynor Start time Last Medication Dose Route Stop Time Status Admin Acetaminophen 650 MG Q6P PRN 07/18 1730 AC PO Al Hydroxide/Mg 30 ML Q4-6 PRN PRN 07/18 1745 AC Hydroxide PO Albuterol Sulfate 2 PUF Q6P PRN 07/18 1800 AC INH Benztropine Mesylate 1 MG Q6P PRN 07/18 1730 AC PO Benztropine Mesylate 1 MG Q6P PRN 07/18 1730 AC IM Carbamazepine 600 MG DAILY@08/03 AC 08/15 PO 1940 Carbamazepine 400 MG DAILY@0807/22 08 AC 08/15 PO 0920 Gabapentin 300 MG Q6P PRN 07/18 1730 AC PO Haloperidol 5 MG Q6P PRN 07/18 1730 AC PO Haloperidol 5 MG Q6P PRN 07/18 1730 AC IM Lamotrigine 50 MG DAILY 08/02 1000 AC 08/15 PO 0800 Linaclotide 145 MCG DAILY 07/19 1000 AC 08/15 PO 0801 Magnesium Hydroxide 30 ML AT BEDTIME PRN 07/18 1745 AC PO Olanzapine 15 MG AT BEDTIME 08/11 2200 AC 08/14 PO 2134 Oxybutynin Chloride 5 MG TID 07/18 2200 AC 08/15 PO 1618 Paroxetine HCl 30 MG 08/03 0800 AC 08/15 PO 0800 Laboratory Tests 08/15 08/14 0710 0600 Chemistry Total Bilirubin (0.2 - 1.3 mg/dL) 0.3 Direct Bilirubin (< 0.4 mg/dL) 0.3 AST (14 - 36 U/L) 21 ALT (9 - 52 U/L) 29 Alkaline Phosphatase (<127 U/L) 67 Total Protein (6.3 - 8.2 g/dL) 6.3 Albumin (3.5 - 5.0 g/dL) 3.7 Hematology CBC w Diff NO MAN DIFF REQ Cancelled WBC (4.8 - 10.8 /CUMM) 4.4 L Cancelled RBC (4.20 - 5.40 /CUMM) 4.00 L Cancelled Hgb (12.0 - 16.0 G/DL) 12.5 Cancelled Hct (37 - 47 %) 36.7 L Cancelled MCV (81.0 - 99.0 FL) 91.6 Cancelled MCH (27.0 - 31.0 PG) 31.1 H Cancelled RDW (11.5 - 14.5 %) 13.9 Cancelled Plt Count (130 - 400 /CUMM) 221 Cancelled MPV (7.4 - 10.4 FL) 8.5 Cancelled Gran % (42.2 - 75.2 %) 53.6 Lymphocytes % (20.5 - 51.1 %) 31.4 Monocytes % (1.7 - 9.3 %) 11.1 H Eosinophils % (0 - 5 %) 2.9 Basophils % (0.0 - 2.0 %) 1.0 Absolute Granulocytes (1.4 - 6.5 /CUMM) 2.4 Absolute Lymphocytes (1.2 - 3.4 /CUMM) 1.4 Absolute Monocytes (0.10 - 0.60 /CUMM) 0.5 Absolute Eosinophils (0.0 - 0.7 /CUMM) 0.1 Absolute Basophils (0.0 - 0.2 /CUMM) 0 PUBS MCHC (33.0 - 37.0 G/DL) 34.0 Cancelled Toxicology Carbamazepine (4.0 - 12.0 ug/mL) 8.1 Cancelled Orders Procedure Date/time Status HEPATIC FUNCTION PANEL 08/15 600 Complete CBC WITHOUT DIFFERENTIAL 08/15 600 Complete CARBAMAZEPINE 08/15 600 Complete SUB HSP (15 MIN) 08/12 UNK Complete SUB HSP (15 MIN) 08/11 UNK Complete Vital Signs Date Time Temp Pulse Resp B/P B/P Pulse O2 O2 Flow FiO2 Mean Ox Delivery Rate 08/15 2002 97.0 70 135/95 08/15 1609 75 137/73 08/15 1236 84 131/77 08/15 0750 98.4 68 122/76 Denies any new problems and no problems or complaints elicited during today's encounter. Mental Status Examination Appearance: dressed and groomed Behavior/Activity: appropriate Speech: normal Thought Form: logical, coherent and goal-directed Thought Content: denies AHs or VHs no delusions elicited Mood: euthymic Affect: blunted Suicidal Ideation: denies Homicidal Ideation:denies Orientation: oriented in all spheres Memory: grossly intact Judgment/Insight: Attention/Concentration: poor Other: Medical Decision Making (Note new problems, management options, dangerousness risks) advance dose of Paxil. Still exhibiting OCD behaviors. Assessment: Doing about the same -- no new change in status recently . Diagnoses: SCHIZOAFFECTIVE DISORDER, BIPOLAR TYPE OCD Treatment Plan: planned probate hearing held yesterday . STATUS: Voluntary A total of 35 minutes was spent with the patient, with more than 50% of the timespent in counseling and/or coordination of care.
[2017-08-16 08:08] VITALS: BP 142/73
[2017-08-16 11:45] VITALS: BP 140/74
--- NOTE | 2017-08-16 14:24 | CP SOUTH PROGRESS NOTE PSYCH ---
See Addendum Psych (Inpt) Progress Note Progress Note JENNY COLÓN has been admitted for 29 days. 08/16/17 Progress Note: Vital Signs Date Time Temp Pulse Resp B/P B/P Pulse O2 O2 Flow FiO2 Mean Ox Delivery Rate 08/16 1145 86 140/74 08/16 0808 97.2 68 142/73 08/15 2002 97.0 70 135/95 08/15 1609 75 137/73 08/15 1236 84 131/77 Current Medications Sig/Mynor Start time Last Medication Dose Route Stop Time Status Admin Acetaminophen 650 MG Q6P PRN 07/18 1730 AC PO Al Hydroxide/Mg 30 ML Q4-6 PRN PRN 07/18 1745 AC Hydroxide PO Albuterol Sulfate 2 PUF Q6P PRN 07/18 1800 AC INH Benztropine Mesylate 1 MG Q6P PRN 07/18 1730 AC PO Benztropine Mesylate 1 MG Q6P PRN 07/18 1730 AC IM Carbamazepine 600 MG DAILY@08/03 AC 08/15 PO 1940 Carbamazepine 400 MG DAILY@07/22 08 AC 08/16 PO 0816 Gabapentin 300 MG Q6P PRN 07/18 1730 AC PO Haloperidol 5 MG Q6P PRN 07/18 1730 AC PO Haloperidol 5 MG Q6P PRN 07/18 1730 AC IM Lamotrigine 50 MG DAILY 08/02 1000 AC 08/16 PO 0816 Linaclotide 145 MCG DAILY 07/19 1000 AC 08/16 PO 0816 Magnesium Hydroxide 30 ML AT BEDTIME PRN 07/18 1745 AC PO Olanzapine 15 MG AT BEDTIME 08/11 2200 AC 08/15 PO 2141 Oxybutynin Chloride 5 MG TID 07/18 220 AC 08/16 PO 1148 Paroxetine HCl 30 MG 08/03 0800 AC 08/16 PO 0816 Orders Procedure Date/time Status MISSING MEDICATION FORM 08/16 UNK Active HEPATIC FUNCTION PANEL 08/15 600 Complete CBC WITHOUT DIFFERENTIAL 08/15 600 Complete CARBAMAZEPINE 08/15 06 Complete Laboratory Tests 08/15 08/14 0710 0600 Chemistry Total Bilirubin (0.2 - 1.3 mg/dL) 0.3 Direct Bilirubin (< 0.4 mg/dL) 0.3 AST (14 - 36 U/L) 21 ALT (9 - 52 U/L) 29 Alkaline Phosphatase (<127 U/L) 67 Total Protein (6.3 - 8.2 g/dL) 6.3 Albumin (3.5 - 5.0 g/dL) 3.7 Hematology CBC w Diff NO MAN DIFF REQ Cancelled WBC (4.8 - 10.8 /CUMM) 4.4 L Cancelled RBC (4.20 - 5.40 /CUMM) 4.00 L Cancelled Hgb (12.0 - 16.0 G/DL) 12.5 Cancelled Hct (37 - 47 %) 36.7 L Cancelled MCV (81.0 - 99.0 FL) 91.6 Cancelled MCH (27.0 - 31.0 PG) 31.1 H Cancelled RDW (11.5 - 14.5 %) 13.9 Cancelled Plt Count (130 - 400 /CUMM) 221 Cancelled MPV (7.4 - 10.4 FL) 8.5 Cancelled Gran % (42.2 - 75.2 %) 53.6 Lymphocytes % (20.5 - 51.1 %) 31.4 Monocytes % (1.7 - 9.3 %) 11.1 H Eosinophils % (0 - 5 %) 2.9 Basophils % (0.0 - 2.0 %) 1.0 Absolute Granulocytes (1.4 - 6.5 /CUMM) 2.4 Absolute Lymphocytes (1.2 - 3.4 /CUMM) 1.4 Absolute Monocytes (0.10 - 0.60 /CUMM) 0.5 Absolute Eosinophils (0.0 - 0.7 /CUMM) 0.1 Absolute Basophils (0.0 - 0.2 /CUMM) 0 PUBS MCHC (33.0 - 37.0 G/DL) 34.0 Cancelled Toxicology Carbamazepine (4.0 - 12.0 ug/mL) 8.1 Cancelled Case was discussed in Interdisciplinary Treatment Team Meeting this morning with Dr. Hogan present. The chart was reviewed, including vital signs, labs and medications. Assessment: She remains the same clinically. She was laying in bed and engaged in conversation but it was illogical and nonsensical. Diagnoses: SCHIZOAFFECTIVE DISORDER, BIPOLAR TYPE OCD Treatment Plan: CONTINUE CURRENT TREATMENT PLAN STATUS: Voluntary A total of 20 minutes was spent with the patient, with more than 50% of the timespent in counseling and/or coordination of care.
[2017-08-16 15:52] VITALS: BP 123/71
--- NOTE | 2017-08-16 16:34 | SOCIAL WORKER PROG NOTE PSYCH ---
Social Work Progress Note Progress Note 12:05pm This data analyst report writer attempt to meet with patient who was lying in her bed. This data analyst report writer observed with the patient that she appeared depressed, withdrawn and isolative. She denied all three. Patient stated that she was not feeling well, but would not expand further. While stating that she did not need to go to a state hospital "and Dr. Steele knows that," she stated that her father would pay her rent until she returns home. Attempt to engage patient in further conversation was unsuccessful, "I have nothing else to say."
[2017-08-16 19:53] VITALS: BP 145/72
[2017-08-17 08:50] VITALS: BP 121/69
[2017-08-17 11:55] VITALS: BP 124/72
--- NOTE | 2017-08-17 14:44 | CP SOUTH PROGRESS NOTE PSYCH ---
Psych (Inpt) Progress Note Progress Note Include the following elements, when applicable: Involvement in the active treatment of the patient with behavioral observations of the patient and the patient's response to the treatment. Review of the ongoing treatment process in the context of the treatment plan. Indication of how multi-disciplinary staff members are carrying out the treatment plan. Plans for future interventions and recommendations for revision of the treatment plan. Liaison with other physicians/providers. Progress Note: Case and treatment plan discussed in team meeting. Patient seen at 11:49 AM with PA student, Barrera. Patient was napping in her room prior to meeting with us in corner group room. Patient states she is okay. Has no complaints. Affect is calm and blunted. Her answers are uniformly short. Reports mood as "I'm okay." Rates sad mood 0/10 and anxiety as just 0/ 10. Denies feeling hopeless, helpless, worthless or guilty. Denies suicidal and homicidal ideation. Denies auditory and visual hallucinations and paranoid ideation. Denies being bothered by need to handwash. Describes sleep, appetite and energy as fine. Finds that her medications make her too tired but she is not asking for a reduction in doses. IMPRESSION: Slow progress. Continue present treatment plan. Monitor for sedation. Awaiting placement at a state facility on a probate commitment.
--- NOTE | 2017-08-17 16:04 | SOCIAL WORKER PROG NOTE PSYCH ---
Social Work Progress Note Progress Note Met with patient at chairside. Spoke with patient to find out how she was doing today. Patient presents with pressured, tangential, speech. Her affect is flat and her her eyes look teary. I asked patient how she was she stated "im fine" followed by pressured tangential speech. The patient races from topic to topic making it difficult to follow. She spoke of the following topics attorneys, gynecological, her father, her sister and a boyfriend. Patient was apperceptive of speaking with this technical writer and I let her know social work staff would be checking in with her regularly.
[2017-08-17 16:13] VITALS: BP 141/70
[2017-08-17 19:49] VITALS: BP 140/81
[2017-08-18 09:22] VITALS: BP 129/70
--- NOTE | 2017-08-18 09:43 | CP SOUTH PROGRESS NOTE PSYCH ---
Psych (Inpt) Progress Note Progress Note Include the following elements, when applicable: Involvement in the active treatment of the patient with behavioral observations of the patient and the patient's response to the treatment. Review of the ongoing treatment process in the context of the treatment plan. Indication of how multi-disciplinary staff members are carrying out the treatment plan. Plans for future interventions and recommendations for revision of the treatment plan. Liaison with other physicians/providers. Progress Note: Pt reports that she is "OK." Answered "OK" to all questions. She did note that she "wants to go home" and does not feel she needs to be here on [facility] to go to groups. She denies AVHs. Sleep is good. Denies SI or HI. Current Medications Sig/Mynor Start time Last Medication Dose Route Stop Time Status Admin Acetaminophen 650 MG Q6P PRN 07/18 1730 AC PO Al Hydroxide/Mg 30 ML Q4-6 PRN PRN 07/18 1745 AC Hydroxide PO Albuterol Sulfate 2 PUF Q6P PRN 07/18 1800 AC INH Benztropine Mesylate 1 MG Q6P PRN 07/18 1730 AC PO Benztropine Mesylate 1 MG Q6P PRN 07/18 1730 AC IM Carbamazepine 600 MG DAILY@08/03 AC 08/17 PO 1952 Carbamazepine 400 MG DAILY@07/22 08 AC 08/18 PO 0920 Gabapentin 300 MG Q6P PRN 07/18 1730 AC PO Haloperidol 5 MG Q6P PRN 07/18 1730 AC PO Haloperidol 5 MG Q6P PRN 07/18 1730 AC IM Lamotrigine 50 MG DAILY 08/02 1000 AC 08/18 PO 0921 Linaclotide 145 MCG DAILY 07/19 1000 AC 08/18 PO 0920 Magnesium Hydroxide 30 ML AT BEDTIME PRN 07/18 1745 AC PO Olanzapine 15 MG AT BEDTIME 08/11 2200 AC 08/17 PO 2153 Oxybutynin Chloride 5 MG TID 07/18 2200 AC 08/18 PO 0921 Paroxetine HCl 30 MG 08/03 08 AC 08/18 PO 0920 Vital Signs Date Time Temp Pulse Resp B/P B/P Pulse O2 O2 Flow FiO2 Mean Ox Delivery Rate 08/18 922 97.5 80 129/70 08/17 1949 98.2 72 140/81 08/17 1613 82 141/70 08/17 1155 86 124/72 MSE General appearance: fair good hygiene and grooming; Attitude: cooperative; Eye contact: appropriate; Movement: + psychomotor slowing; Speech: nl fluency, nl rate/rhythm, nl volume, nl prosody; Mood: "OK" Affect: very flat, appropriate, constricted, non-labile, congruent; Thought process: linear and goal-directed; ?thought blocking Thought content: denied SI or HI, no paranoid ideation; Perception: denied hallucinations- auditory, visual, does not appear to be responding to internal stimuli; I/J: limited A/P: Pt with SAD, bipolar type and OCD with continued slowed thought process. -Continue current medication regimen -Encourage integration into the milieu
[2017-08-18 12:23] VITALS: BP 136/76
[2017-08-18 16:47] VITALS: BP 133/72
[2017-08-18 20:10] VITALS: BP 147/73
[2017-08-19 08:28] VITALS: BP 129/60
[2017-08-19 12:26] VITALS: BP 132/78
--- NOTE | 2017-08-19 12:40 | CP SOUTH PROGRESS NOTE PSYCH ---
Psych (Inpt) Progress Note Progress Note Include the following elements, when applicable: Involvement in the active treatment of the patient with behavioral observations of the patient and the patient's response to the treatment. Review of the ongoing treatment process in the context of the treatment plan. Indication of how multi-disciplinary staff members are carrying out the treatment plan. Plans for future interventions and recommendations for revision of the treatment plan. Liaison with other physicians/providers. Progress Note: Pt reported that she was "OK" and that she attended group but became tired. Denies SI or HI. Current Medications Sig/Mynor Start time Last Medication Dose Route Stop Time Status Admin Acetaminophen 650 MG Q6P PRN 07/18 1730 AC PO Al Hydroxide/Mg 30 ML Q4-6 PRN PRN 07/18 1745 AC Hydroxide PO Albuterol Sulfate 2 PUF Q6P PRN 07/18 1800 AC INH Benztropine Mesylate 1 MG Q6P PRN 07/18 1730 AC PO Benztropine Mesylate 1 MG Q6P PRN 07/18 1730 AC IM Carbamazepine 600 MG DAILY@08/03 2000 AC 08/18 PO 1949 Carbamazepine 400 MG DAILY@07/22 0800 AC 08/19 PO 0825 Gabapentin 300 MG Q6P PRN 07/18 1730 AC PO Haloperidol 5 MG Q6P PRN 07/18 1730 AC PO Haloperidol 5 MG Q6P PRN 07/18 1730 AC IM Lamotrigine 50 MG DAILY 08/02 1000 AC 08/19 PO 0825 Linaclotide 145 MCG DAILY 07/19 1000 AC 08/19 PO 0825 Magnesium Hydroxide 30 ML AT BEDTIME PRN 07/18 1745 AC PO Olanzapine 15 MG AT BEDTIME 08/11 2200 AC 08/18 PO 2218 Oxybutynin Chloride 5 MG TID 07/18 220 AC 08/19 PO 0825 Paroxetine HCl 30 MG 08/03 0800 AC 08/19 PO 0825 Vital Signs Date Time Temp Pulse Resp B/P B/P Pulse O2 O2 Flow FiO2 Mean Ox Delivery Rate 08/19 1226 78 132/78 08/19 0828 97.0 74 129/60 08/18 2010 97.6 80 147/73 08/18 1647 71 133/72 MSE General appearance: fair good hygiene and grooming; Attitude: cooperative; Eye contact: appropriate; Movement: + psychomotor slowing; Speech: nl fluency, nl rate/rhythm, nl volume, nl prosody; Mood: "OK" Affect: very flat, appropriate, constricted, non-labile, congruent; Thought process: linear and goal-directed; ?thought blocking Thought content: denied SI or HI, no paranoid ideation; Perception: denied hallucinations- auditory, visual, does not appear to be responding to internal stimuli; I/J: limited A/P: Pt with SAD, bipolar type and OCD with continued slowed thought process. -Continue current medication regimen -Encourage integration into the milieu
[2017-08-19 15:47] VITALS: BP 130/69
[2017-08-19 19:58] VITALS: BP 144/79
[2017-08-20 08:41] VITALS: BP 129/75
[2017-08-20 12:24] VITALS: BP 128/68
--- NOTE | 2017-08-20 15:05 | SOCIAL WORKER PROG NOTE PSYCH ---
Social Work Progress Note Progress Note Met with patient in her room. Patient laying in the bed in a dark room. Patient reports that she is "fine". she reports that she went to a few groups but is tired and just wants to rest at this time. Informed patient that I will meet with her tomorrow.
[2017-08-20 16:11] VITALS: BP 132/78
[2017-08-20 19:53] VITALS: BP 135/74
[2017-08-21 08:15] VITALS: BP 113/59
--- NOTE | 2017-08-21 11:32 | CP SOUTH PROGRESS NOTE PSYCH ---
Psych (Inpt) Progress Note Progress Note JENNY COLÓN has been admitted for 34 days. 08/21/17 Progress Note: Current Medications Sig/Mynor Start time Last Medication Dose Route Stop Time Status Admin Acetaminophen 650 MG Q6P PRN 07/18 1730 AC PO Al Hydroxide/Mg 30 ML Q4-6 PRN PRN 07/18 1745 AC Hydroxide PO Albuterol Sulfate 2 PUF Q6P PRN 07/18 1800 AC INH Benztropine Mesylate 1 MG Q6P PRN 07/18 1730 AC PO Benztropine Mesylate 1 MG Q6P PRN 07/18 1730 AC IM Carbamazepine 600 MG DAILY@08/03 AC 08/20 PO 1947 Carbamazepine 400 MG DAILY@07/22 08 AC 08/21 PO 0842 Gabapentin 300 MG Q6P PRN 07/18 1730 AC PO Haloperidol 5 MG Q6P PRN 07/18 1730 AC PO Haloperidol 5 MG Q6P PRN 07/18 1730 AC IM Lamotrigine 50 MG DAILY 08/02 1000 AC 08/21 PO 0842 Linaclotide 145 MCG DAILY 07/19 1000 AC 08/21 PO 0842 Magnesium Hydroxide 30 ML AT BEDTIME PRN 07/18 1745 AC PO Olanzapine 15 MG AT BEDTIME 08/11 2200 AC 08/20 PO 2214 Oxybutynin Chloride 5 MG TID 07/18 2200 AC 08/21 PO 0842 Paroxetine HCl 30 MG 08/03 0800 AC 08/21 PO 0842 Orders Procedure Date/time Status SUB HSP (15 MIN) 08/19 UNK Complete SUB HSP (15 MIN) 08/18 UNK Complete Vital Signs Date Time Temp Pulse Resp B/P B/P Pulse O2 O2 Flow FiO2 Mean Ox Delivery Rate 08/21 815 97.8 80 113/59 08/20 195 98.0 69 135/74 08/20 1611 72 132/78 08/20 1224 81 128/68 Case was discussed in Interdisciplinary Treatment Team Meeting this morning with Dr. Hogan present. The chart was reviewed, including vital signs, labs and medications. Interval History/Chief Complaint: SHE DENIES ANY NEW PROBLEMS. SLEEPING WELL, MOOD ID GOOD, DENIES PSYCHOTIC SX'S " I WANT TO GO HOME" Pertinent Review of Systems (ROS): NO SOMATIC COMPLAINTS Medical Decision Making (Note new problems, management options, dangerousness risks) MAINTAIN MEDICATION CURRENTLY PRESCRIBED Assessment: SINCE ADMISSION SHE HAS EXHIBITED LESS MANIC BEHAVIOR, LESS PERSEVERATION AND HAND WASHING ---CALMER AND CAPABLE OF HAVING A LOGICAL EXCHANGE / DIALOGUE BUT IT IS VERY LIMITED. SHE WILL NEED SNF TREATMENT AND IS AWAITING PLACEMENT TO A STATE FACILITY. Diagnoses: SCHIZOAFFECTIVE DISORDER, BIPOLAR TYPE OCD Treatment Plan: Continue present treatment plan. Monitor for sedation. Awaiting placement at a state facility on a probate commitment. STATUS: Involuntary For Involuntary Patients Case and treatment plan discussed with: [X ] Psychiatry Nursing [X] Psychiatry Social Work [X] I have observed and evaluated this patient and have determined that he/she cannot be released from involuntary treatment to accept treatment on a voluntary basis. A total of 20 minutes was spent with the patient, with more than 50% of the timespent in counseling and/or coordination of care.
[2017-08-21 12:16] VITALS: BP 118/60
--- NOTE | 2017-08-21 12:58 | SOCIAL WORKER PROG NOTE PSYCH ---
Social Work Progress Note Progress Note Met with patient at chairside patient appeared tearful but when asked she denies. She reports that she is "Fine". She reports sleeping well last evening and no going to groups today. Encouraged patient to attend groups. Social work to continue to follow and check bed availability at [facility].
--- NOTE | 2017-08-21 15:39 | SOCIAL WORKER PROG NOTE PSYCH ---
Social Work Progress Note Progress Note Call to [facility] who have referral on patient they are requesting updated progress note from social work and psychiatry. Faxed update and received confirmation of 8 pages faxed.
[2017-08-21 16:19] VITALS: BP 137/75
[2017-08-22 09:25] VITALS: BP 124/71
--- NOTE | 2017-08-22 10:32 | CP SOUTH PROGRESS NOTE PSYCH ---
Psych (Inpt) Progress Note Progress Note Include the following elements, when applicable: Involvement in the active treatment of the patient with behavioral observations of the patient and the patient's response to the treatment. Review of the ongoing treatment process in the context of the treatment plan. Indication of how multi-disciplinary staff members are carrying out the treatment plan. Plans for future interventions and recommendations for revision of the treatment plan. Liaison with other physicians/providers. Progress Note: Case and treatment plan discussed in team meeting. Staff reports that patient was jumping over seam(s) with new carpet installation. Medications seem to be making her sleepy. Refusing groups. Patient seen at 10:20 a.m. with PA student, Barrera. Patient was resting, possibly sleeping, in bed. Complains of stomach discomfort but does not want Mylanta. Reports mood is excellent. Affect is calm and blunted. Rates sad mood and anxiety both 0/10. Denies feeling hopeless, helpless, worthless or guilty. Denies SI, HI, AH, VH and PI. Sleep is fine. Appetite is great. Energy is "really tired a lot" but reports tolerating medications. IMPRESSION: Slow progress. Continue present treatment plan. Awaiting placement at a state facility on probate commitment. Consider backing off some on medications if sedation persists.
[2017-08-22 12:22] VITALS: BP 140/81
--- NOTE | 2017-08-22 13:40 | SOCIAL WORKER PROG NOTE PSYCH ---
Social Work Progress Note Progress Note Patient seen for one to one meetin; however, patient was a little reote, and said that she was "doing o.k.", but did not wish to discuss anything further. Patient has known me for many years, so she was comfortable, but did not wish to engage in any siscussion today. I reminded her that she could spesk with me any time that she wanted over the next several days.
[2017-08-22 15:51] VITALS: BP 123/74
[2017-08-22 19:39] VITALS: BP 133/76
[2017-08-23 08:01] VITALS: BP 135/72
--- NOTE | 2017-08-23 10:52 | SOCIAL WORKER PROG NOTE PSYCH ---
Social Work Progress Note Progress Note Pt was doing a quiet activity with stones, she was smiling and engaged. She is cooperative, paranoid, and not iopen to havign too much convsersation, she makes comments about her nieces being nice girls, and also having names that start with J's. Pt continues to pace.
[2017-08-23 12:19] VITALS: BP 135/72
[2017-08-23 16:03] VITALS: BP 137/76
[2017-08-23 19:53] VITALS: BP 130/77
[2017-08-24 09:04] LABS: ABSOLUTE BASOPHIL COUNT 0 /CUMM (0.0-0.2); ABSOLUTE EOSINOPHIL COUNT 0.1 /CUMM (0.0-0.7); ABSOLUTE GRANULOCYTE CT 2.8 /CUMM (1.4-6.5); ABSOLUTE LYMPH COUNT 1.4 /CUMM (1.2-3.4); ABSOLUTE MONOCYTE COUNT 0.5 /CUMM (0.10-0.60); BASOPHIL % 0.8 % (0.0-2.0); EOSINOPHIL % 2.7 % (0-5); GRANULOCYTE % 58.4 % (42.2-75.2); HEMATOCRIT 36.5 % (37-47); MEAN CORPUSCULAR HGB 31.2 PG (27.0-31.0); MEAN CORPUSCULAR HGB CONC 33.6 G/DL (33.0-37.0); MEAN CORPUSCULAR VOLUME 92.9 FL (81.0-99.0); PLATELET COUNT 211 /CUMM (130-400); RBC DISTRIBUTION WIDTH 13.7 % (11.5-14.5); RED BLOOD CELL CT 3.93 /CUMM (4.20-5.40); WHITE BLOOD CELL COUNT 4.8 /CUMM (4.8-10.8)
--- NOTE | 2017-08-24 12:10 | SOCIAL WORKER PROG NOTE PSYCH ---
Social Work Progress Note Progress Note Pt presents in asimilar presentation today, she did get up and go to groups, she will sheepishly say hello, but can not engage in a lot of conversation, due to her exacerbation of psychotic symptoms. Pt was encourage to manage her ADL's i.e brush her hair, shower. No update regarding referral to [facility].
[2017-08-24 12:34] VITALS: BP 140/77
[2017-08-24 15:54] VITALS: BP 133/76
[2017-08-24 19:53] VITALS: BP 130/79
[2017-08-25 08:24] VITALS: BP 113/72
--- NOTE | 2017-08-25 09:28 | CP SOUTH PROGRESS NOTE PSYCH ---
Psych (Inpt) Progress Note Progress Note Include the following elements, when applicable: Involvement in the active treatment of the patient with behavioral observations of the patient and the patient's response to the treatment. Review of the ongoing treatment process in the context of the treatment plan. Indication of how multi-disciplinary staff members are carrying out the treatment plan. Plans for future interventions and recommendations for revision of the treatment plan. Liaison with other physicians/providers. Progress Note: Pt upset today as she feels that she is ready to go home. She spoke at length about a variety of topics, in tangiental ways, including the [employer], her rent being paid by her father, feeling very independent, people not liking her, and her reaction at a recent meeting when she walked out. She spoke about herself as "a child" several times. Noes that she is sleeping well. She feels only washing hands when appropriate. She stated, "I am well enough to go home." Denies SI or HI. Denied AVHs. Current Medications Sig/Mynor Start time Last Medication Dose Route Stop Time Status Admin Acetaminophen 650 MG Q6P PRN 07/18 1730 AC PO Al Hydroxide/Mg 30 ML Q4-6 PRN PRN 07/18 1745 AC Hydroxide PO Albuterol Sulfate 2 PUF Q6P PRN 07/18 1800 AC INH Benztropine Mesylate 1 MG Q6P PRN 07/18 1730 AC PO Benztropine Mesylate 1 MG Q6P PRN 07/18 1730 AC IM Carbamazepine 600 MG DAILY@08/03 AC 08/24 PO 1957 Carbamazepine 400 MG DAILY@07/22 0800 AC 08/25 PO 828 Gabapentin 300 MG Q6P PRN 07/18 1730 AC PO Haloperidol 5 MG Q6P PRN 07/18 1730 AC PO Haloperidol 5 MG Q6P PRN 07/18 1730 AC IM Lamotrigine 75 MG DAILY 08/24 1000 AC 08/25 PO 828 Linaclotide 145 MCG DAILY 07/19 1000 AC 08/25 PO 828 Magnesium Hydroxide 30 ML AT BEDTIME PRN 07/18 1745 AC PO Olanzapine 15 MG AT BEDTIME 08/11 2200 AC 08/24 PO 1958 Oxybutynin Chloride 5 MG TID 07/18 220 AC 08/25 PO 08 Paroxetine HCl 40 MG 08/25 AC 08/25 PO 08 Paroxetine HCl 40 MG 08/24 DC 08/24 PO 1031 Laboratory Tests 08/24 632 Chemistry Total Bilirubin (0.2 - 1.3 mg/dL) 0.2 Direct Bilirubin (< 0.4 mg/dL) 0.2 AST (14 - 36 U/L) 17 ALT (9 - 52 U/L) 20 Alkaline Phosphatase (<127 U/L) 67 Total Protein (6.3 - 8.2 g/dL) 6.1 L Albumin (3.5 - 5.0 g/dL) 3.5 Hematology CBC w Diff NO MAN DIFF REQ WBC (4.8 - 10.8 /CUMM) 4.8 RBC (4.20 - 5.40 /CUMM) 3.93 L Hgb (12.0 - 16.0 G/DL) 12.3 Hct (37 - 47 %) 36.5 L MCV (81.0 - 99.0 FL) 92.9 MCH (27.0 - 31.0 PG) 31.2 H RDW (11.5 - 14.5 %) 13.7 Plt Count (130 - 400 /CUMM) 211 MPV (7.4 - 10.4 FL) 9.0 Gran % (42.2 - 75.2 %) 58.4 Lymphocytes % (20.5 - 51.1 %) 28.3 Monocytes % (1.7 - 9.3 %) 9.8 H Eosinophils % (0 - 5 %) 2.7 Basophils % (0.0 - 2.0 %) 0.8 Absolute Granulocytes (1.4 - 6.5 /CUMM) 2.8 Absolute Lymphocytes (1.2 - 3.4 /CUMM) 1.4 Absolute Monocytes (0.10 - 0.60 /CUMM) 0.5 Absolute Eosinophils (0.0 - 0.7 /CUMM) 0.1 Absolute Basophils (0.0 - 0.2 /CUMM) 0 PUBS MCHC (33.0 - 37.0 G/DL) 33.6 Toxicology Carbamazepine (4.0 - 12.0 ug/mL) 8.3 Vital Signs Date Time Temp Pulse Resp B/P B/P Pulse O2 O2 Flow FiO2 Mean Ox Delivery Rate 08/25 824 97.7 66 113/72 08/24 1953 97.7 68 130/79 08/24 1554 70 133/76 08/24 1234 86 140/77 MSE Appearance: as stated age Behavior: cooperative Eye contact: none made Speech: nl r/r/p/v, slightly pressured Mood: "I'm OK now" Affect: constricted, non-labile, appropriate, irritable, bizzare TP: linear and goal directed TC: denied AVHs, denies paranoid though seems paranoid about the doctors and the system, no delusions noted, does not appear to be responding to internal stimuli I/J: limited A/P: Pt with hx of SAD with continued disorganized thought process, though improved from when initally seen. - Continue current medication regimen - Encourage groups and intergration into the milieu
[2017-08-25 11:59] VITALS: BP 137/73
[2017-08-25 15:40] VITALS: BP 142/85
[2017-08-25 20:07] VITALS: BP 134/80
[2017-08-26 08:27] VITALS: BP 138/76
--- NOTE | 2017-08-26 10:02 | CP SOUTH PROGRESS NOTE PSYCH ---
Psych (Inpt) Progress Note Progress Note Include the following elements, when applicable: Involvement in the active treatment of the patient with behavioral observations of the patient and the patient's response to the treatment. Review of the ongoing treatment process in the context of the treatment plan. Indication of how multi-disciplinary staff members are carrying out the treatment plan. Plans for future interventions and recommendations for revision of the treatment plan. Liaison with other physicians/providers. Progress Note: Pt notes that she slept well. She was tired a little morning and decided to sleep in a little bit. Did attend all the groups yesterday. Wants to know when she can leave. Denies SI or HI. Current Medications Sig/Mynor Start time Last Medication Dose Route Stop Time Status Admin Acetaminophen 650 MG Q6P PRN 07/18 1730 AC PO Al Hydroxide/Mg 30 ML Q4-6 PRN PRN 07/18 1745 AC Hydroxide PO Albuterol Sulfate 2 PUF Q6P PRN 07/18 1800 AC INH Benztropine Mesylate 1 MG Q6P PRN 07/18 1730 AC PO Benztropine Mesylate 1 MG Q6P PRN 07/18 1730 AC IM Carbamazepine 600 MG DAILY@08/03 AC 08/25 PO 1955 Carbamazepine 400 MG DAILY@07/22 08 AC 08/26 PO 0828 Gabapentin 300 MG Q6P PRN 07/18 1730 AC PO Haloperidol 5 MG Q6P PRN 07/18 1730 AC PO Haloperidol 5 MG Q6P PRN 07/18 1730 AC IM Lamotrigine 75 MG DAILY 08/24 1000 AC 08/26 PO 08 Linaclotide 145 MCG DAILY 07/19 1000 AC 08/26 PO 0828 Magnesium Hydroxide 30 ML AT BEDTIME PRN 07/18 1745 AC PO Olanzapine 15 MG AT BEDTIME 08/11 2200 AC 08/25 PO 2130 Oxybutynin Chloride 5 MG TID 07/18 2200 AC 08/26 PO 0828 Paroxetine HCl 40 MG 08/25 08 AC 08/26 PO 0828 Laboratory Tests 08/24 632 Chemistry Total Bilirubin (0.2 - 1.3 mg/dL) 0.2 Direct Bilirubin (< 0.4 mg/dL) 0.2 AST (14 - 36 U/L) 17 ALT (9 - 52 U/L) 20 Alkaline Phosphatase (<127 U/L) 67 Total Protein (6.3 - 8.2 g/dL) 6.1 L Albumin (3.5 - 5.0 g/dL) 3.5 Hematology CBC w Diff NO MAN DIFF REQ WBC (4.8 - 10.8 /CUMM) 4.8 RBC (4.20 - 5.40 /CUMM) 3.93 L Hgb (12.0 - 16.0 G/DL) 12.3 Hct (37 - 47 %) 36.5 L MCV (81.0 - 99.0 FL) 92.9 MCH (27.0 - 31.0 PG) 31.2 H RDW (11.5 - 14.5 %) 13.7 Plt Count (130 - 400 /CUMM) 211 MPV (7.4 - 10.4 FL) 9.0 Gran % (42.2 - 75.2 %) 58.4 Lymphocytes % (20.5 - 51.1 %) 28.3 Monocytes % (1.7 - 9.3 %) 9.8 H Eosinophils % (0 - 5 %) 2.7 Basophils % (0.0 - 2.0 %) 0.8 Absolute Granulocytes (1.4 - 6.5 /CUMM) 2.8 Absolute Lymphocytes (1.2 - 3.4 /CUMM) 1.4 Absolute Monocytes (0.10 - 0.60 /CUMM) 0.5 Absolute Eosinophils (0.0 - 0.7 /CUMM) 0.1 Absolute Basophils (0.0 - 0.2 /CUMM) 0 PUBS MCHC (33.0 - 37.0 G/DL) 33.6 Toxicology Carbamazepine (4.0 - 12.0 ug/mL) 8.3 Vital Signs Date Time Temp Pulse Resp B/P B/P Pulse O2 O2 Flow FiO2 Mean Ox Delivery Rate 08/26 827 96.9 94 138/76 08/25 2007 97.2 84 134/80 08/25 1540 78 142/85 08/25 1159 75 137/73 MSE Appearance: as stated age Behavior: cooperative Eye contact: none made Speech: nl r/r/p/v, slightly pressured Mood: "fime, I went to groups" Affect: constricted, non-labile, appropriate, irritable, bizzare TP: linear and goal directed TC: denied AVHs, denies paranoid though seems paranoid about the doctors and the system issues that would lead to her discharge, also about ?hearing had recently , no delusions noted, does not appear to be responding to internal stimuli I/J: limited A/P: Pt with hx of SAD with continued disorganized thought process, though improved from when initally seen. - Continue current medication regimen - Encourage groups and intergration into the milieu
[2017-08-26 12:40] VITALS: BP 132/73
[2017-08-26 16:07] VITALS: BP 133/72
[2017-08-26 19:34] VITALS: BP 127/72
[2017-08-27 12:23] VITALS: BP 138/79
--- NOTE | 2017-08-27 13:54 | SOCIAL WORKER PROG NOTE PSYCH ---
Social Work Progress Note Progress Note Spoke with Elyse Mae, and faxed over requested progress notes regarding Padmini. Apparently she is moving up the waitlist. Pt engaged in milieu during the day. Continues to be tangential, and not making complete sense when in conversation, pt can not tolerate one on one conversations for very long. Will check back with [facility] tomorrow.
--- NOTE | 2017-08-27 15:43 | CP SOUTH PROGRESS NOTE PSYCH ---
Psych (Inpt) Progress Note Progress Note JENNY COLÓN has been admitted for 40 days. 08/27/17 Progress Note: Current Medications Sig/Mynor Start time Last Medication Dose Route Stop Time Status Admin Acetaminophen 650 MG Q6P PRN 07/18 1730 AC PO Al Hydroxide/Mg 30 ML Q4-6 PRN PRN 07/18 1745 AC Hydroxide PO Albuterol Sulfate 2 PUF Q6P PRN 07/18 1800 AC INH Benztropine Mesylate 1 MG Q6P PRN 07/18 1730 AC PO Benztropine Mesylate 1 MG Q6P PRN 07/18 1730 AC IM Carbamazepine 600 MG DAILY@08/03 AC 08/26 PO 2036 Carbamazepine 400 MG DAILY@07/22 08 AC 08/27 PO 0834 Gabapentin 300 MG Q6P PRN 07/18 1730 AC PO Haloperidol 5 MG Q6P PRN 07/18 1730 AC PO Haloperidol 5 MG Q6P PRN 07/18 1730 AC IM Lamotrigine 75 MG DAILY 08/24 1000 AC 08/27 PO 0834 Linaclotide 145 MCG DAILY 07/19 1000 AC 08/27 PO 0834 Magnesium Hydroxide 30 ML AT BEDTIME PRN 07/18 1745 AC PO Olanzapine 15 MG AT BEDTIME 08/110 AC 08/26 PO 2128 Oxybutynin Chloride 5 MG TID 07/18 2200 AC 08/27 PO 0834 Paroxetine HCl 40 MG 0800 08/25 0800 AC 08/27 PO 0834 Orders Procedure Date/time Status SUB HSP (15 MIN) 08/26 UNK Complete SUB HSP (15 MIN) 08/25 UNK Complete Vital Signs Date Time Temp Pulse Resp B/P B/P Pulse O2 O2 Flow FiO2 Mean Ox Delivery Rate 08/27 1223 72 138/79 08/26 1934 97.5 91 127/72 08/26 1607 80 133/72 Case was discussed in Interdisciplinary Treatment Team Meeting this morning with Dr. Hogan present. The chart was reviewed, including vital signs, labs and medications. Interval History/Chief Complaint: Pertinent Review of Systems (ROS): Mental Status Examination Appearance: dressed and groomed Behavior/Activity: odd, perseverative about going home, Speech: normal Thought Form: logical, coherent and goal-directed Thought Content: no AHs or VHs no delusions elicited Mood: dysphoric Affect: flat Suicidal Ideation: denies Homicidal Ideation:denies Orientation: oriented in all spheres Memory: grossly intact Judgment/Insight: poor Attention/Concentration: intact Other: Medical Decision Making (Note new problems, management options, dangerousness risks) She remains the same clinically, Assessment: She is not exhibiting any significant further improvement that would prompt a change in current treatment plan for placement in State Facility for longer term care. Diagnoses: SCHIZOAFFECTIVE DISORDER, BIPOLAR TYPE OCD Treatment Plan: Continue present treatment plan. Monitor for sedation. Awaiting placement at a state facility on a probate commitment. STATUS: Involuntary For Involuntary Patients Case and treatment plan discussed with: [ x] Psychiatry Nursing [ x] Psychiatry Social Work [ x] I have observed and evaluated this patient and have determined that he/she cannot be released from involuntary treatment to accept treatment on a voluntary basis. A total of 30 minutes was spent with the patient, with more than 50% of the timespent in counseling and/or coordination of care.
[2017-08-27 15:57] VITALS: BP 104/58
[2017-08-27 20:05] VITALS: BP 140/80
[2017-08-28 12:32] VITALS: BP 128/73
--- NOTE | 2017-08-28 14:24 | CP SOUTH PROGRESS NOTE PSYCH ---
Psych (Inpt) Progress Note Progress Note JENNY COLÓN has been admitted for 41 days. 08/28/17 Progress Note: Current Medications Sig/Mynor Start time Last Medication Dose Route Stop Time Status Admin Acetaminophen 650 MG Q6P PRN 07/18 1730 AC PO Al Hydroxide/Mg 30 ML Q4-6 PRN PRN 07/18 1745 AC Hydroxide PO Albuterol Sulfate 2 PUF Q6P PRN 07/18 1800 AC INH Benztropine Mesylate 1 MG Q6P PRN 07/18 1730 AC PO Benztropine Mesylate 1 MG Q6P PRN 07/18 1730 AC IM Carbamazepine 600 MG DAILY@08/03 AC 08/27 PO 1943 Carbamazepine 400 MG DAILY@07/22 08 AC 08/28 PO 1003 Gabapentin 300 MG Q6P PRN 07/18 1730 AC PO Haloperidol 5 MG Q6P PRN 07/18 1730 AC PO Haloperidol 5 MG Q6P PRN 07/18 1730 AC IM Lamotrigine 75 MG DAILY 08/24 1000 AC 08/28 PO 1003 Linaclotide 145 MCG DAILY 07/19 1000 AC 08/28 PO 1002 Magnesium Hydroxide 30 ML AT BEDTIME PRN 07/18 1745 AC PO Olanzapine 15 MG AT BEDTIME 08/11 2200 AC 08/27 PO 2141 Oxybutynin Chloride 5 MG TID 07/18 2200 AC 08/28 PO 1002 Paroxetine HCl 40 MG 08/25 0800 AC 08/28 PO 1002 Orders Procedure Date/time Status SUB HSP (15 MIN) 08/26 UNK Complete SUB HSP (15 MIN) 08/25 UNK Complete Vital Signs Date Time Temp Pulse Resp B/P B/P Pulse O2 O2 Flow FiO2 Mean Ox Delivery Rate 08/28 1232 97.6 87 128/73 08/27 2005 98.6 82 140/80 08/27 1557 71 104/58 Case was discussed in Interdisciplinary Treatment Team Meeting this morning with Dr. Hogan present. The chart was reviewed, including vital signs, labs and medications. Interval History/Chief Complaint: denies any problems, washing hands again more in recent daysafter having significantly reduced. "I'm OK , everything is great" Pertinent Review of Systems (ROS): denies any somatic complaints Mental Status Examination Appearance: dressed and groomed Behavior/Activity: odd, perseverative about going home, Speech: normal Thought Form: logical, coherent and goal-directed Thought Content: no AHs or VHs no delusions elicited Mood: dysphoric Affect: flat Suicidal Ideation: denies Homicidal Ideation:denies Orientation: oriented in all spheres Memory: grossly intact Judgment/Insight: poor Attention/Concentration: intact Other: Medical Decision Making (Note new problems, management options, dangerousness risks) She remains the same clinically, Assessment: She is not exhibiting any significant further improvement that would prompt a change in current treatment plan for placement in State Facility for longer term care. Diagnoses: SCHIZOAFFECTIVE DISORDER, BIPOLAR TYPE OCD Treatment Plan: Continue present treatment plan. Monitor for sedation. Awaiting placement at a state facility on a probate commitment. STATUS: Involuntary For Involuntary Patients Case and treatment plan discussed with: [x ] Psychiatry Nursing [ x] Psychiatry Social Work [x ] I have observed and evaluated this patient and have determined that he/she cannot be released from involuntary treatment to accept treatment on a voluntary basis. A total of 20 minutes was spent with the patient, with more than 50% of the timespent in counseling and/or coordination of care.
[2017-08-28 16:00] VITALS: BP 125/75
--- NOTE | 2017-08-28 17:49 | SOCIAL WORKER PROG NOTE PSYCH ---
Social Work Progress Note Progress Note 4:05pm This show card writer met with patient. She presented as slightly pressured, however, able to engage in conversation and respond to questions, however was brief in her responses. She reported olegario "excellent" mood, stated that she was sleeping "fine" and that her appetite was "fine." She stated that she she had attended groups this afternoon, however, unable to wake up this morning to attend the morning groups. Patient denied SI/HI/AH/VH. She requested to end this meeting as "there's nothing left to talk about." Patient was agreeable to meeting with this show card writer again tomorrow.
[2017-08-28 19:48] VITALS: BP 131/80
[2017-08-29 08:19] VITALS: BP 135/80
[2017-08-29 12:16] VITALS: BP 137/74
[2017-08-29 16:05] VITALS: BP 129/79
--- NOTE | 2017-08-29 17:05 | CP SOUTH PROGRESS NOTE PSYCH ---
Psych (Inpt) Progress Note Progress Note JENNY COLÓN has been admitted for 42 days. 08/29/17 Progress Note: Current Medications Sig/Mynor Start time Last Medication Dose Route Stop Time Status Admin Acetaminophen 650 MG Q6P PRN 07/18 1730 AC PO Al Hydroxide/Mg 30 ML Q4-6 PRN PRN 07/18 1745 AC Hydroxide PO Albuterol Sulfate 2 PUF Q6P PRN 07/18 1800 AC INH Benztropine Mesylate 1 MG Q6P PRN 07/18 1730 AC PO Benztropine Mesylate 1 MG Q6P PRN 07/18 1730 AC IM Carbamazepine 600 MG DAILY@08/03 AC 08/28 PO 1929 Carbamazepine 400 MG DAILY@07/22 08 AC 08/29 PO 0822 Gabapentin 300 MG Q6P PRN 07/18 1730 AC PO Haloperidol 5 MG Q6P PRN 07/18 1730 AC PO Haloperidol 5 MG Q6P PRN 07/18 1730 AC IM Lamotrigine 75 MG DAILY 08/24 1000 AC 08/29 PO 0822 Linaclotide 145 MCG DAILY 07/19 1000 AC 08/29 PO 0822 Magnesium Hydroxide 30 ML AT BEDTIME PRN 07/18 1745 AC PO Olanzapine 15 MG AT BEDTIME 08/11 2200 AC 08/28 PO 2139 Oxybutynin Chloride 5 MG TID 07/18 2200 AC 08/29 PO 1550 Paroxetine HCl 40 MG 0808/25 08 AC 08/29 PO 0822 Orders Procedure Date/time Status SUB HSP (15 MIN) 08/26 UNK Complete SUB HSP (15 MIN) 08/25 UNK Complete Vital Signs Date Time Temp Pulse Resp B/P B/P Pulse O2 O2 Flow FiO2 Mean Ox Delivery Rate 08/29 1605 80 129/79 08/29 1216 82 137/74 08/29 0819 98.0 71 135/80 08/28 1948 98.6 93 131/80 Case was discussed in Interdisciplinary Treatment Team Meeting this morning with Dr. Samira quintero. The chart was reviewed, including vital signs, labs and medications. Interval History/Chief Complaint: No significant change is status aside from possible escalation in frequency of hand washing in recent days. Pertinent Review of Systems (ROS): no somatic complaints Mental Status Examination Appearance: dressed and groomed Behavior/Activity: odd, perseverative about going home, Speech: normal Thought Form: logical, coherent and goal-directed Thought Content: no AHs or VHs no delusions elicited Mood: dysphoric Affect: flat Suicidal Ideation: denies Homicidal Ideation:denies Orientation: oriented in all spheres Memory: grossly intact Judgment/Insight: poor Attention/Concentration: intact Other: Medical Decision Making (Note new problems, management options, dangerousness risks) She remains the same clinically, Assessment: She is not exhibiting any significant further improvement that would prompt a change in current treatment plan for placement in State Facility for longer term care. Diagnoses: SCHIZOAFFECTIVE DISORDER, BIPOLAR TYPE OCD Treatment Plan: Continue present treatment plan. Monitor for sedation. Awaiting placement at a state facility on a probate commitment. STATUS: Involuntary For Involuntary Patients Case and treatment plan discussed with: [ x] Psychiatry Nursing [ x] Psychiatry Social Work [ x] I have observed and evaluated this patient and have determined that he/she cannot be released from involuntary treatment to accept treatment on a voluntary basis. A total of 30 minutes was spent with the patient, with more than 50% of the timespent in counseling and/or coordination of care.
--- NOTE | 2017-08-29 17:39 | SOCIAL WORKER PROG NOTE PSYCH ---
Social Work Progress Note Progress Note 3:08pm This clinical writer attempted to meet with the patient, however, the patient refused to do so. "I have nothing to talk about."
[2017-08-29 19:36] VITALS: BP 152/81
[2017-08-30 08:15] VITALS: BP 139/85
[2017-08-30 12:21] VITALS: BP 128/68
--- NOTE | 2017-08-30 12:29 | SOCIAL WORKER PROG NOTE PSYCH ---
Social Work Progress Note Progress Note 11:35pm This commercial real estate underwriter attempted to meet with the patient. She refused. She was offered to meet later, to which she refused as well.
--- NOTE | 2017-08-30 12:30 | SOCIAL WORKER PROG NOTE PSYCH ---
Social Work Progress Note Progress Note 11:19am This junior underwriter spoke with Todd at [facility] by phone inquiring about bed availability. He stated that there were no available beds at this time and was unable to anticipate when a bed would be available.
--- NOTE | 2017-08-30 14:41 | CP SOUTH PROGRESS NOTE PSYCH ---
Psych (Inpt) Progress Note Progress Note JENNY COLÓN has been admitted for 43 days. 08/30/17 Progress Note: Current Medications Sig/Mynor Start time Last Medication Dose Route Stop Time Status Admin Acetaminophen 650 MG Q6P PRN 07/18 1730 AC PO Al Hydroxide/Mg 30 ML Q4-6 PRN PRN 07/18 1745 AC Hydroxide PO Albuterol Sulfate 2 PUF Q6P PRN 07/18 1800 AC INH Benztropine Mesylate 1 MG Q6P PRN 07/18 1730 AC PO Benztropine Mesylate 1 MG Q6P PRN 07/18 1730 AC IM Carbamazepine 600 MG DAILY@08/03 AC 08/29 PO 1945 Carbamazepine 400 MG DAILY@07/22 08 AC 08/30 PO 0818 Gabapentin 300 MG Q6P PRN 07/18 1730 AC PO Haloperidol 5 MG Q6P PRN 07/18 1730 AC PO Haloperidol 5 MG Q6P PRN 07/18 1730 AC IM Lamotrigine 75 MG DAILY 08/24 1000 AC 08/30 PO 0819 Linaclotide 145 MCG DAILY 07/19 1000 AC 08/30 PO 0819 Magnesium Hydroxide 30 ML AT BEDTIME PRN 07/18 1745 AC PO Olanzapine 15 MG AT BEDTIME 08/11 2200 AC 08/29 PO 2135 Oxybutynin Chloride 5 MG TID 07/18 2200 AC 08/30 PO 0818 Paroxetine HCl 40 MG 08/25 08 AC 08/30 PO 0818 Vital Signs Date Time Temp Pulse Resp B/P B/P Pulse O2 O2 Flow FiO2 Mean Ox Delivery Rate 08/30 1221 72 128/68 08/30 815 96.5 71 139/85 08/29 1936 97.9 95 152/81 08/29 1605 80 129/79 Assessment: she is reporting abdominal distress over past days or so Diagnoses: Acute decompensationBipolar disorder with psychotic features Treatment Plan: discssued with nursing and requested hospitalist to assess and to obtain VS continue current treatment plan STATUS: Voluntary A total of 45 minutes was spent with the patient, with more than 50% of the timespent in counseling and/or coordination of care.
[2017-08-30 16:13] VITALS: BP 127/76
[2017-08-30 20:02] VITALS: BP 136/79
[2017-08-31 07:47] VITALS: BP 141/85
[2017-08-31 12:29] VITALS: BP 138/74
--- NOTE | 2017-08-31 14:37 | SOCIAL WORKER PROG NOTE PSYCH ---
Social Work Progress Note Progress Note 1:05pm This caption writer attempted to meet with the patient. She was in bed and stated that she was not feeling well. She stated that she spoke with the nurse about this. Patient stated that she therefore did not want to meet or attend group. "I want my dad and I want to go home." Patient stated that she is looking forward to visiting with her father today.
--- NOTE | 2017-08-31 14:59 | CP SOUTH PROGRESS NOTE PSYCH ---
Psych (Inpt) Progress Note Progress Note Include the following elements, when applicable: Involvement in the active treatment of the patient with behavioral observations of the patient and the patient's response to the treatment. Review of the ongoing treatment process in the context of the treatment plan. Indication of how multi-disciplinary staff members are carrying out the treatment plan. Plans for future interventions and recommendations for revision of the treatment plan. Liaison with other physicians/providers. Progress Note: Medication list reviewed. Case and treatment plan discussed in team. Staff reports that the patient is somatic. Had unwitnessed diarrhea yesterday. Reported having a urinary tract infection. We will check a urinalysis. No bed has been located at [facility]. Patient seen at 10:27 AM with medical student. Patient is dressed in blue paper scrubs. Feels okay. She is eager to go back home. Reports she is trying to go to groups here. Has no insight into why we feel she needs to go to a state facility. Mood is excellent. Rates sad mood and anxiety both 0/10. Denies feeling hopeless, helpless, worthless or guilty. I asked about her frequency of handwashing and she stated she is not doing it very much at all. Denies suicidal and homicidal ideation. Denies auditory and visual hallucinations and paranoid ideation. Reports sleep, appetite and energy are fine. IMPRESSION: Slow progress. Continue present treatment plan. We will check a Tegretol level , CBC and electrolytes on Sunday morning. Patient continues to require inpatient level of care as she awaits placement at a state facility.
[2017-08-31 15:55] VITALS: BP 143/96
[2017-08-31 19:44] VITALS: BP 138/71
--- NOTE | 2017-09-01 09:31 | CP SOUTH PROGRESS NOTE PSYCH ---
Psych (Inpt) Progress Note Progress Note Include the following elements, when applicable: Involvement in the active treatment of the patient with behavioral observations of the patient and the patient's response to the treatment. Review of the ongoing treatment process in the context of the treatment plan. Indication of how multi-disciplinary staff members are carrying out the treatment plan. Plans for future interventions and recommendations for revision of the treatment plan. Liaison with other physicians/providers. Progress Note: Sleepy, minimal answers; less grossly disorganized (due to sleepiness) compared to previous times we have met. Weight gain noticeable. Stated can I go now and did not want to spend much time talking to me. MSE: young/middle aged woman, fair grooming, in hospital clothing. Overweight compared to previous admissions. No movement disorder evident. Her speech is sparse, regular volume. Her mood is neutral and affect is constricted. Thought process is concrete. She did not express any delusional content today but likely has residual psychotic thinking. Denies hearing voices or wanting to harm herself or anyone else. Her insight and judgment are both fair. Plan: continue plan of care. Encouraged her to walk around during the day time for exercise, and to participate in groups for behavioral activation. Labs Sunday for med levels.
[2017-09-01 12:11] VITALS: BP 143/98
[2017-09-01 16:02] VITALS: BP 131/75
[2017-09-01 20:12] VITALS: BP 134/83
[2017-09-02 08:41] VITALS: BP 146/82
--- NOTE | 2017-09-02 10:36 | CP SOUTH PROGRESS NOTE PSYCH ---
Psych (Inpt) Progress Note Progress Note Include the following elements, when applicable: Involvement in the active treatment of the patient with behavioral observations of the patient and the patient's response to the treatment. Review of the ongoing treatment process in the context of the treatment plan. Indication of how multi-disciplinary staff members are carrying out the treatment plan. Plans for future interventions and recommendations for revision of the treatment plan. Liaison with other physicians/providers. Progress Note: Stated that she slept well, her mood is neutral. Stated that she had diarrhea and she was lying down, diarrhea is better now. Stated that she wants to stay at her house by herself. Withdrawn, does not appear very engaged with me. No behavioral issues per nursing staff. Father will be visiting her today per her. MSE: young/middle aged woman, fair grooming, in hospital clothing. No tics or tremors noted. Her speech is impoverished/withdrawn with me. Her mood is neutral to dysphoric, her affect is constricted and stable. Her thinking is concrete. No gross delusions elicited. Stated that she doesnt hear voices, doesnt feel depressed and doesnt want to harm herself or anyone else. Her insight and judgment are both fair. Plan: continue plan of care. Encouraged her to do some physical activity to improve her mood. UA is negative. diarrhea per her is improving.
[2017-09-02 12:45] VITALS: BP 142/76
[2017-09-02 16:06] VITALS: BP 134/79
[2017-09-02 19:37] VITALS: BP 145/73
[2017-09-03 07:56] VITALS: BP 140/91
[2017-09-03 12:24] VITALS: BP 135/79
[2017-09-03 16:29] VITALS: BP 131/84
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
[2017-09-03 19:58] VITALS: BP 147/84
[2017-09-04 08:02] VITALS: BP 119/68
[2017-09-04 12:02] VITALS: BP 133/74
--- NOTE | 2017-09-04 15:32 | SOCIAL WORKER PROG NOTE PSYCH ---
Social Work Progress Note Progress Note 1:15pm This lead technical writer attempted to meet with the patient. She was in bed and stated, "my medicine is making me really sleepy." Patient described her mood as "excellent. " She stated, "I have nothing to talk about, you can go. If I need anything I' ll come find you." 3:25pm This lead technical writer spoke with Alanna Mak by phone regarding the [facility] referral. She suggested that [facility] be contacted regarding weekly updates and bed availability. This lead technical writer spoke with Todd at [facility] ([phone]) who requested a weekly progress note (written by the psychiatrist or nursing note) to provide updated clinical information.
[2017-09-04 15:57] VITALS: BP 136/75
[2017-09-04 20:08] VITALS: BP 144/79
--- NOTE | 2017-09-04 21:07 | CP SOUTH PROGRESS NOTE PSYCH ---
Psych (Inpt) Progress Note Progress Note Progress Note: She remians the same clinically. Less hand washing. Continues to show slow progress. awaiting placement in state facility for more extensive treatment period.
[2017-09-05 08:54] VITALS: BP 135/84
[2017-09-05 12:06] VITALS: BP 147/78
--- NOTE | 2017-09-05 16:13 | CP SOUTH PROGRESS NOTE PSYCH ---
Psych (Inpt) Progress Note Progress Note JENNY COLÓN has been admitted for 49 days. 09/05/17 Progress Note: Current Medications Sig/Mynor Start time Last Medication Dose Route Stop Time Status Admin Acetaminophen 650 MG Q6P PRN 07/18 1730 AC PO Al Hydroxide/Mg 30 ML Q4-6 PRN PRN 07/18 1745 AC Hydroxide PO Albuterol Sulfate 2 PUF Q6P PRN 07/18 1800 AC INH Benztropine Mesylate 1 MG Q6P PRN 07/18 1730 AC 08/31 PO 1249 Benztropine Mesylate 1 MG Q6P PRN 07/18 1730 AC IM Carbamazepine 600 MG DAILY@08/03 AC 09/04 PO 2007 Carbamazepine 400 MG DAILY@07/22 0800 AC 09/05 PO 0901 Gabapentin 300 MG Q6P PRN 07/18 1730 AC PO Haloperidol 5 MG Q6P PRN 07/18 1730 AC PO Haloperidol 5 MG Q6P PRN 07/18 1730 AC IM Lamotrigine 75 MG DAILY 08/24 1000 AC 09/05 PO 0902 Linaclotide 145 MCG DAILY 07/19 1000 AC 09/05 PO 0901 Loperamide HCl 2 MG Q6P PRN 08/30 1600 AC 09/05 PO 0905 Magnesium Hydroxide 30 ML AT BEDTIME PRN 07/18 1745 AC PO Olanzapine 15 MG AT BEDTIME 08/11 2200 AC 09/04 PO 2119 Oxybutynin Chloride 5 MG TID 07/18 2200 AC 09/05 PO 0901 Paroxetine HCl 40 MG 0800 08/25 0800 AC 09/05 PO 0901 Laboratory Tests 09/03 0718 Toxicology Carbamazepine (4.0 - 12.0 ug/mL) 9.3 Orders Procedure Date/time Status Change service to 09/04 1110 Active MISSING MEDICATION FORM 09/03 UNK Active SUB HSP (15 MIN) 09/02 UNK Complete SUB HSP (15 MIN) 09/01 UNK Complete Vital Signs Date Time Temp Pulse Resp B/P B/P Pulse O2 O2 Flow FiO2 Mean Ox Delivery Rate 09/05 1206 80 147/78 09/05 854 97.1 79 135/84 09/04 2008 97.7 86 144/79 Case was discussed in Interdisciplinary Treatment Team Meeting this morning with Dr. Hogan present. The chart was reviewed, including vital signs, labs and medications. Interval History/Chief Complaint: SHE IS DOING MUCH LESS HAND WAHING LATELY. NO NEW C/O GI DISTRESS AND SPECIFICALLY DENIED WHEN ASKED TODAY. TODAY APPEARS TO BE A BTTER DAY FOR HER. SHE IS OOB ON THE [place] AND SMILING AT POINTS TODAY DURING MY INTERACTION WITH HER Pertinent Review of Systems (ROS): Mental Status Examination Appearance: dressed and groomed Behavior/Activity: SEEN IN KITCHEN WHILE PARTICIPATING IN ART GROUP AND WAS INTENSELY FOCUSED ON HER COLORING AND ENJOYING IT APPARENTLY Speech: normal Thought Form: logical, coherent and goal-directed Thought Content: no AHs or VHs no delusions elicited Mood: EUTHYMIC Affect: BLUNTED Suicidal Ideation: denies Homicidal Ideation:denies Orientation: oriented in all spheres Memory: grossly intact Judgment/Insight: poor Attention/Concentration: intact Other: Medical Decision Making (Note new problems, management options, dangerousness risks) She remains the same clinically, Assessment: She is not exhibiting any significant further improvement that would prompt a change in current treatment plan for placement in State Facility for longer term care. Diagnoses: SCHIZOAFFECTIVE DISORDER, BIPOLAR TYPE OCD Treatment Plan: Continue present treatment plan. Monitor for sedation. Awaiting placement at a state facility on a probate commitment. STATUS: Involuntary For Involuntary Patients Case and treatment plan discussed with: [ x] Psychiatry Nursing [ x] Psychiatry Social Work [ x] I have observed and evaluated this patient and have determined that he/she cannot be released from involuntary treatment to accept treatment on a voluntary basis. A total of 30 minutes was spent with the patient, with more than 50% of the timespent in counseling and/or coordination of care.
[2017-09-05 16:20] VITALS: BP 132/73
--- NOTE | 2017-09-05 17:13 | SOCIAL WORKER PROG NOTE PSYCH ---
Social Work Progress Note Progress Note 1:05pm This magnetic tape typewriter operator attempted to meet with the patient, who refused.
[2017-09-05 19:47] VITALS: BP 147/79
[2017-09-06 08:14] VITALS: BP 127/72
[2017-09-06 12:17] VITALS: BP 128/72
[2017-09-06 16:13] VITALS: BP 148/86
--- NOTE | 2017-09-06 16:43 | CP SOUTH PROGRESS NOTE PSYCH ---
Psych (Inpt) Progress Note Progress Note JENNY COLÓN has been admitted for 50 days. 09/06/17 Progress Note: Current Medications Sig/Mynor Start time Last Medication Dose Route Stop Time Status Admin Acetaminophen 650 MG Q6P PRN 07/18 1730 AC PO Al Hydroxide/Mg 30 ML Q4-6 PRN PRN 07/18 1745 AC Hydroxide PO Albuterol Sulfate 2 PUF Q6P PRN 07/18 1800 AC INH Benztropine Mesylate 1 MG Q6P PRN 07/18 1730 AC 08/31 PO 1249 Benztropine Mesylate 1 MG Q6P PRN 07/18 1730 AC IM Carbamazepine 600 MG DAILY@08/03 AC 09/05 PO 1940 Carbamazepine 400 MG DAILY@07/22 08 AC 09/06 PO 0816 Gabapentin 300 MG Q6P PRN 07/18 1730 AC PO Haloperidol 5 MG Q6P PRN 07/18 1730 AC PO Haloperidol 5 MG Q6P PRN 07/18 1730 AC IM Lamotrigine 75 MG DAILY 08/24 1000 AC 09/06 PO 0817 Linaclotide 145 MCG DAILY 07/19 1000 AC 09/06 PO 0817 Loperamide HCl 2 MG Q6P PRN 08/30 1600 AC 09/05 PO 0905 Magnesium Hydroxide 30 ML AT BEDTIME PRN 07/18 1745 AC PO Olanzapine 15 MG AT BEDTIME 08/11 2200 AC 09/05 PO 2146 Oxybutynin Chloride 5 MG TID 07/18 220 AC 09/06 PO 1611 Paroxetine HCl 40 MG 08/25 08 AC 09/06 PO 0816 Orders Procedure Date/time Status Change service to 09/04 1110 Active MISSING MEDICATION FORM 09/03 UNK Active SUB HSP (15 MIN) 09/02 UNK Complete SUB HSP (15 MIN) 09/01 UNK Complete Vital Signs Date Time Temp Pulse Resp B/P B/P Pulse O2 O2 Flow FiO2 Mean Ox Delivery Rate 09/06 1613 85 148/86 09/06 1217 82 128/72 09/06 0814 96.9 86 127/72 09/05 194 97.7 94 147/79 Case was discussed in Interdisciplinary Treatment Team Meeting this morning with Dr. Hogan present. The chart was reviewed, including vital signs, labs and medications. Interval History/Chief Complaint: SHE IS DOING MUCH LESS HAND WAHING LATELY. NO NEW C/O GI DISTRESS AND SPECIFICALLY DENIED WHEN ASKED TODAY. TODAY APPEARS TO BE A BeTTER DAY FOR HER. SHE IS OOB ON THE [place] AND SMILING AT POINTS TODAY DURING MY INTERACTION WITH HER Pertinent Review of Systems (ROS): Mental Status Examination Appearance: dressed and groomed Behavior/Activity:sitting in her bed alone in darkend room Speech: normal Thought Form: logical, coherent and goal-directed Thought Content: no AHs or VHs no delusions elicited Mood: "i'm doing good" Affect: BLUNTED Suicidal Ideation: denies Homicidal Ideation:denies Orientation: oriented in all spheres Memory: grossly intact Judgment/Insight: poor Attention/Concentration: intact Other: Medical Decision Making (Note new problems, management options, dangerousness risks) She remains the same clinically, Assessment: She is not exhibiting any significant further improvement that would prompt a change in current treatment plan for placement in State Facility for longer term care. Diagnoses: SCHIZOAFFECTIVE DISORDER, BIPOLAR TYPE OCD Treatment Plan: Continue present treatment plan. Monitor for sedation. Awaiting placement at a state facility on a probate commitment. STATUS: Involuntary For Involuntary Patients Case and treatment plan discussed with: [ x] Psychiatry Nursing [ x] Psychiatry Social Work [ x] I have observed and evaluated this patient and have determined that he/she cannot be released from involuntary treatment to accept treatment on a voluntary basis. A total of 30 minutes was spent with the patient, with more than 50% of the timespent in counseling and/or coordination of care.
--- NOTE | 2017-09-06 17:17 | SOCIAL WORKER PROG NOTE PSYCH ---
Social Work Progress Note Progress Note 4:40pm This speech writer met with patient. She discussed that she had an enjoyable day playing games in group and attending the art therapy group. Patient discussed family relationships in which she identifies having a positive relationship with her father, however stressful relationships with her sisters and mother. Patient stated that she does not have contact with her sisters and mother at this time. Patient reported that she would like to go home and stated that her doctor, "Dr. Steele" would be supportive and agreeable to this. Patient continues to present with pressured speech and is tangential. She provides vague information throughout the discussion and is not willing to respond to questions in detail.
[2017-09-06 19:34] VITALS: BP 143/71
[2017-09-07 08:32] VITALS: BP 126/74
[2017-09-07 11:52] VITALS: BP 138/80
--- NOTE | 2017-09-07 12:15 | CP SOUTH PROGRESS NOTE PSYCH ---
Psych (Inpt) Progress Note Progress Note JENNY COLÓN has been admitted for 51 days. 09/07/17 Progress Note: Current Medications Sig/Mynor Start time Last Medication Dose Route Stop Time Status Admin Acetaminophen 650 MG Q6P PRN 07/18 1730 AC PO Al Hydroxide/Mg 30 ML Q4-6 PRN PRN 07/18 1745 AC Hydroxide PO Albuterol Sulfate 2 PUF Q6P PRN 07/18 1800 AC INH Benztropine Mesylate 1 MG Q6P PRN 07/18 1730 AC 08/31 PO 1249 Benztropine Mesylate 1 MG Q6P PRN 07/18 1730 AC IM Carbamazepine 600 MG DAILY@08/03 AC 09/06 PO 1925 Carbamazepine 400 MG DAILY@07/22 08 AC 09/07 PO 0849 Gabapentin 300 MG Q6P PRN 07/18 1730 AC PO Haloperidol 5 MG Q6P PRN 07/18 1730 AC PO Haloperidol 5 MG Q6P PRN 07/18 1730 AC IM Lamotrigine 75 MG DAILY 08/24 1000 AC 09/07 PO 0849 Linaclotide 145 MCG DAILY 07/19 1000 AC 09/07 PO 0850 Loperamide HCl 2 MG Q6P PRN 08/30 1600 AC 09/05 PO 0905 Magnesium Hydroxide 30 ML AT BEDTIME PRN 07/18 1745 AC PO Olanzapine 15 MG AT BEDTIME 08/11 220 AC 09/06 PO 2116 Oxybutynin Chloride 5 MG TID 07/18 220 AC 09/07 PO 0849 Paroxetine HCl 40 MG 08/25 08 AC 09/07 PO 0849 Orders Procedure Date/time Status SUB HSP (15 MIN) 09/02 UNK Complete SUB HSP (15 MIN) 09/01 UNK Complete Vital Signs Date Time Temp Pulse Resp B/P B/P Pulse O2 O2 Flow FiO2 Mean Ox Delivery Rate 09/07 1152 82 138/80 09/07 0832 97.5 73 126/74 09/06 1934 97.8 78 143/71 09/06 1613 85 148/86 09/06 1217 82 128/72 Case was discussed in Interdisciplinary Treatment Team Meeting this morning with Dr. Hogan present. The chart was reviewed, including vital signs, labs and medications. Interval History/Chief Complaint: She was seen in her room where she was laying in bed awake. She reported she was doing good and has no complaints. She has been OOB and up and about on the [place] in recent days. She was offered the possibility of discharge back to her apartment if she would agree to accepting an injection of medication and accept VNS coming into her apartment -- she responded with an emphatic negative response to that offer. Pertinent Review of Systems (ROS): Denies any somatic complaints. Mental Status Examination Appearance: dressed and groomed Behavior/Activity: Laying in her bed while awake today and somewhat less active than she has been in recent days on the milieu Speech: normal Thought Form: logical, more coherent Thought Content: no AHs or VHs no delusions elicited Mood: "i'm doing good" Affect: BLUNTED Suicidal Ideation: denies Homicidal Ideation:denies Orientation: oriented in all spheres Memory: grossly intact Judgment/Insight: poor Attention/Concentration: intact Other: Medical Decision Making (Note new problems, management options, dangerousness risks) She remains the same clinically, Assessment: She is not exhibiting any significant further improvement that would prompt a change in current treatment plan for placement in State Facility for longer term care. Diagnoses: SCHIZOAFFECTIVE DISORDER, BIPOLAR TYPE OCD Treatment Plan: Continue present treatment plan. Monitor for sedation. Awaiting placement at a state facility on a probate commitment. STATUS: Involuntary For Involuntary Patients Case and treatment plan discussed with: [ x] Psychiatry Nursing [ x] Psychiatry Social Work [ x] I have observed and evaluated this patient and have determined that he/she cannot be released from involuntary treatment to accept treatment on a voluntary basis. A total of 30 minutes was spent with the patient, with more than 50% of the timespent in counseling and/or coordination of care.
--- NOTE | 2017-09-07 14:15 | SOCIAL WORKER PROG NOTE PSYCH ---
Social Work Progress Note Progress Note This racebook writer attempted to meet with patient. She refused.
[2017-09-07 15:16] VITALS: BP 134/79
[2017-09-07 20:09] VITALS: BP 135/78
[2017-09-08 08:10] VITALS: BP 130/73
[2017-09-08 11:54] VITALS: BP 146/85
--- NOTE | 2017-09-08 13:17 | CP SOUTH PROGRESS NOTE PSYCH ---
Psych (Inpt) Progress Note Progress Note Include the following elements, when applicable: Involvement in the active treatment of the patient with behavioral observations of the patient and the patient's response to the treatment. Review of the ongoing treatment process in the context of the treatment plan. Indication of how multi-disciplinary staff members are carrying out the treatment plan. Plans for future interventions and recommendations for revision of the treatment plan. Liaison with other physicians/providers. Progress Note: Chart reviewed and patient discussed with nursing staff. Patient is known to me from previous admissions. Interviewed patient this morning. She was seen resting in bed. She was pleasant and cooperative, denied any current complaints. Denied any suicidal or homicidal ideation. Denies any medication side effects. Vitals were reviewed and were within normal limits. No new laboratory results today. Mental status exam: Disheveled appearing female resting in bed. No abnormal movements. Speech was limited in amount. Mood was "okay ", affect was blunted, non-labile. Thought process was impoverished. thought content without suicidal or homicidal ideation. Cognition was grossly intact. Denies any perceptual disturbances. Insight and judgment was limited. Assessment and plan: Continue to attempt to arrange longer term care in a state facility. No medication changes.
[2017-09-08 15:51] VITALS: BP 149/75
[2017-09-08 19:43] VITALS: BP 141/81
[2017-09-09 08:07] VITALS: BP 139/80
[2017-09-09 12:08] VITALS: BP 144/81
--- NOTE | 2017-09-09 12:38 | CP SOUTH PROGRESS NOTE PSYCH ---
Psych (Inpt) Progress Note Progress Note Include the following elements, when applicable: Involvement in the active treatment of the patient with behavioral observations of the patient and the patient's response to the treatment. Review of the ongoing treatment process in the context of the treatment plan. Indication of how multi-disciplinary staff members are carrying out the treatment plan. Plans for future interventions and recommendations for revision of the treatment plan. Liaison with other physicians/providers. Progress Note: Chart reviewed and patient discussed with nursing staff. Interviewed patient this morning. She was up and out of bed, sitting in the kitchen, much more interactive today than yesterday. She noted right knee pain, which sounded musculoskeletal in origin, and she had denied trying any pain medications for the knee pain. Otherwise pleasant, cooperative, denied any other current concerns, including SI HI or medication side effects. She denies any perceptual disturbances. Vitals were reviewed and were largely within normal limits. No new laboratory results today. Mental status exam: Disheveled, hirsute appearing female sitting in kitchen. No abnormal movements. Speech was greater in amount today compared to yesterday. Mood was "okay ", affect was blunted, non-labile. Thought process was circumstantial. thought content without suicidal or homicidal ideation. Cognition was grossly intact. Denies any perceptual disturbances. Insight and judgment was limited. Assessment and plan: Start Motrin 600 mg every 6 hours as needed for musculoskeletal pain. Continue to attempt to arrange longer term care in a state facility. Remainder of treatment plan as per primary team.
[2017-09-09 15:56] VITALS: BP 138/83
[2017-09-09 19:50] VITALS: BP 145/84
[2017-09-10 08:58] VITALS: BP 131/72
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
[2017-09-10 15:56] VITALS: BP 138/79
[2017-09-10 20:05] VITALS: BP 136/89
[2017-09-11 08:38] VITALS: BP 124/98
[2017-09-11 12:33] VITALS: BP 139/69
--- NOTE | 2017-09-11 14:41 | CP SOUTH PROGRESS NOTE PSYCH ---
Psych (Inpt) Progress Note Progress Note I reviewed the patients electronic medical record, I listened to verbal report from the multidisciplinary team meeting about patient's progress. I reviewed the patients medication list reviewed. Sleep log showed that the patient slept well" No new labs today Summary: Patient awaiting a bed at [facility] Mental Status Examination: Padmini was tired earlier in the day but was awake and alert around noontime. She was dressed in blue paper scrubs. She was calm and her affect was blunted. She was talkative with some disorganization of thought process. She denied hallucinations. She repeatedly asserted that she did not do anything wrong. She denied feeling depressed, still washing her hands too often, Padmini denied feeling too anxious, she denied feeling hopeless or worthless. She denied thinking of suicide or violence, she reports sleep is fine and appetite is good. IMPRESSION: Slow progress, awaiting involuntary placement at a [facility] hospital. Treatment Plan Update: Continue same medications
--- NOTE | 2017-09-11 15:21 | Event Note ---
Event Note Event Note: Called by RN to evaluate patient for acute right knee swelling. As per the RN, pt has been there for a while awaiting insurance and T19. They do not know when this knee effusion started and today noticed that the patient was limping. Patient is not a reliable informant and cannot really tell me when her right knee started swelling up. She does say it hurts but she is able to put weight on it and walk around. She says she has arthritis in both her knees but she can 't specify what type. Her past medical history significant only for asthma, tobacco use hasn't smoked since she's been here and schizoaffective disorder. On exam she is afebrile, blood pressures 110/60, pulse is 76, breathing at 16- 18. She is awake alert and able to walk. Her right knee is swollen and mildly tender. There is no redness or warmth. I couldn't really elicit any restriction in range of motion. And I couldn't elicit an area of discrete fluid collection. 42-year-old female right knee swelling of unclear etiology. Will check CBC, BEP and an x-ray of the right knee which I ordered and will follow-up.
[2017-09-11 16:39] VITALS: BP 140/79
--- NOTE | 2017-09-11 17:37 | RADIOLOGY REPORT ---
EXAMINATION: XR KNEE, RIGHT CLINICAL INFORMATION: Right knee swelling. COMPARISON: Right knee 12/14/2016 TECHNIQUE: Four views of the right knee. FINDINGS: Minimal tricompartment osteoarthritis of the right knee. Small marginal osteophytes of the patellofemoral joint femoral tibial compartments. These are unchanged since prior radiograph. No joint effusion. No acute abnormality. No soft tissue calcification. IMPRESSION: 1. No acute abnormality. 2. Minimal tricompartment degenerative change of the knee.
--- NOTE | 2017-09-11 17:47 | SOCIAL WORKER PROG NOTE PSYCH ---
Social Work Progress Note Progress Note 12pm This insurance underwriter sales met with patient. She presented as slightly less pressured than previous meetings and smiling, appropriately, at times; she continued to move from topic to topic. Much of this meeting was of the patient discussing disatisfaction with relationships and poor boundaries, though the information she provided was vague. At one point, patient complemented this insurance underwriter sales's shoes and commented on her own shoe collection. This insurance underwriter sales was unable to contribute much to the conversation as patient would interrupt. Patient appeared brighter than previous discussions and thanked this insurance underwriter sales for the meeting before ending the conversation.
[2017-09-11 20:17] VITALS: BP 143/78
[2017-09-12 07:46] VITALS: BP 131/80
[2017-09-12 09:18] LABS: ABSOLUTE BASOPHIL COUNT 0 /CUMM (0.0-0.2); ABSOLUTE EOSINOPHIL COUNT 0.2 /CUMM (0.0-0.7); ABSOLUTE GRANULOCYTE CT 3.1 /CUMM (1.4-6.5); ABSOLUTE LYMPH COUNT 1.5 /CUMM (1.2-3.4); ABSOLUTE MONOCYTE COUNT 0.4 /CUMM (0.10-0.60); BASOPHIL % 0.6 % (0.0-2.0); EOSINOPHIL % 3.6 % (0-5); GRANULOCYTE % 59.2 % (42.2-75.2); HEMATOCRIT 36.7 % (37-47); MEAN CORPUSCULAR HGB 31.1 PG (27.0-31.0); MEAN CORPUSCULAR HGB CONC 34.3 G/DL (33.0-37.0); MEAN CORPUSCULAR VOLUME 90.8 FL (81.0-99.0); MEAN PLATELET VOLUME 8.5 FL (7.4-10.4); PLATELET COUNT 260 /CUMM (130-400); RBC DISTRIBUTION WIDTH 13.6 % (11.5-14.5); RED BLOOD CELL CT 4.04 /CUMM (4.20-5.40); WHITE BLOOD CELL COUNT 5.3 /CUMM (4.8-10.8)
[2017-09-12 11:53] VITALS: BP 139/80
--- NOTE | 2017-09-12 13:25 | CP SOUTH PROGRESS NOTE PSYCH ---
Psych (Inpt) Progress Note Progress Note The multidisciplinary treatment team reviewed that patient's progress in the morning daily meeting. I reviewed the patients medication list. Sleep log showed that the patient slept well" Mental Status Examination: Padmini was less tired today and more engaged in conversation. She was alert and oriented. She was calm, her affect was blunted. She was talkative with some disorganization of thought process. She denied hallucinations. She denied feeling depressed, denied feeling too anxious, and denied feeling hopeless or worthless. She denied wishing or thinking of suicide or violence. Assessment: Padmini has been inpatient for almost 2 months and is awaiting a bed at [facility]. She is showing very minimal and slow progress (if any). Does not believe she needs medications but is taking them, did not want any depot IM medications Treatment Plan Update: Reduce carbamazepine Stop Lamotrigine Add Haloperidol 2 mg at bedtime Re-evaluate tomorrow
--- NOTE | 2017-09-12 15:08 | SOCIAL WORKER PROG NOTE PSYCH ---
Social Work Progress Note Progress Note 1:10pm This advertising copy writer met with patient. She was spontaneous and engaged in the conversation, appropriately smiling at times, slightly pressured speech. Patient discussed feeling frustrated when she lived at home due to wanting to be able to fix things (around the house) on her own while others tried to intervene. Patient discussed wanting to be independent and "I don't need help with anything." Patient acknowledged the support that she has received here at , "everyone here is really nice." Patient stated that she would like to attend a group this afternoon and this advertising copy writer walked her to the kitchen.
[2017-09-12 15:59] VITALS: BP 139/78
[2017-09-12 19:35] VITALS: BP 125/83
[2017-09-13 08:34] VITALS: BP 143/87
[2017-09-13 11:55] VITALS: BP 127/76
--- NOTE | 2017-09-13 12:45 | CP SOUTH PROGRESS NOTE PSYCH ---
Psych (Inpt) Progress Note Progress Note The multidisciplinary treatment team reviewed Sharif progress in the morning daily meeting. Summary: Padmini has been inpatient close to 2 months and continues to be thought disordered Mental Status Examination: Padmini was resting in be by noontime. I brought up the issue of conservatorship and she was disappointed by her father applying for that. She was alert and oriented. She was calm. Her affect was blunted to flat. Padmini was not talkative like yesterday. She continues to have some disorganization of the thought process. She denied hallucinations. She denied feeling depressed, denied feeling too anxious, and denied feeling hopeless or worthless. She denied wishing or thinking of suicide or violence. There were delusions I could observe during interview Assessment: Padmini has been inpatient for almost 2 months and is awaiting a bed at [facility]. She is showing very minimal and slow progress (if any). Does not believe she needs medications but is taking them, did not want any depot IM medications Treatment Plan Update: Reduce carbamazepine (Tegretol) to 200 mg TID Increase Haloperidol to 5 mg at bedtime Add Naprosyn 250 mg BID for knee pain (with additional PRN Ibuprofen if needed) Continue other medications unchanged Re-evaluate tomorrow
[2017-09-13 15:48] VITALS: BP 145/78
--- NOTE | 2017-09-13 16:19 | SOCIAL WORKER PROG NOTE PSYCH ---
Social Work Progress Note Progress Note 3:35pm This newspaper writer met with patient. She initially entered this meeting with up beat mood and smiling. She discussed how she has enjoyed going to groups today and playing games. Her only complaint at this time was her knee pain, which she stated she received medication for and was appreciative of this. Patient's affect shifted as she discussed the relationship with her father. She stated that she does not need anyone paying her bills as she is capable of doing so and "I don't need to be here. I have rights." Patient stated that the outpatient services at received phone calls in the past from the patient's father regarding conservatorship. Patient spoke with an underlying theme of "people who are bothering me from all over the place" and "my father has been a good father to me." She became increasingly pressured and disorganized as she spoke, referring also to being removed as a child. It was unclear as to the reason for her removal as she was guarded, providing limiting details on this or during any other part of this discussion. Patient ultimately decided that she no longer wanted to meet and left the room.
[2017-09-13 20:00] VITALS: BP 138/79
[2017-09-14 08:24] VITALS: BP 132/92
[2017-09-14 12:10] VITALS: BP 124/72
--- NOTE | 2017-09-14 14:09 | CP SOUTH PROGRESS NOTE PSYCH ---
Psych (Inpt) Progress Note Progress Note Sharif progress and treatment were reiewed bu the multidisciplinary treatment team in the morning daily meeting. Summary: Padmiin has been inpatient close to 2 months and continues to be thought disordered Mental Status Examination: Padmini was alert and oriented. She was calm. Her affect was blunted to flat. Padmini was not talkative, in fact she was very brief in her conversation today. She continues to have disorganized thought process. She denied hallucinations and denied feeling depressed, She denied feeling anxious, denied feeling hopeless or worthless, and denied wishing or thinking of suicide or violence. There were delusions during interview Assessment: Padmini has been inpatient for almost 2 months and is awaiting a bed at [facility]. She is showing very minimal and slow progress (if any). Does not believe she needs medications but is taking them, did not want any depot IM medications Treatment Plan Update: Continue Inpatient Psych Care Continue carbamazepine (Tegretol) 200 mg TID Continue haloperidol 5 mg at bedtime Continue Naprosyn 250 mg BID for knee pain (with additional PRN Ibuprofen if needed) Continue other medications unchanged Nursing assessments once a shift Group therapy, Milieu/Activity therapy
[2017-09-14 15:53] VITALS: BP 132/74
--- NOTE | 2017-09-14 16:08 | SOCIAL WORKER PROG NOTE PSYCH ---
See Addendum Social Work Progress Note Progress Note 11:00am This freelance writer met with patient. She presented as disorganized and with pressured speech; perseverating on the "wrong doings" of others and that she has done nothing wrong. She was vague regarding this, and unwilling to provide any details, only stating, "my mother and father had no right to send me away." Patient made no eye contact with this freelance writer during this meeting and ultimately ending the conversation, stating, "there's nothing left to talk about."
[2017-09-14 19:47] VITALS: BP 134/80
[2017-09-15 08:41] VITALS: BP 128/77
--- NOTE | 2017-09-15 11:38 | CP SOUTH PROGRESS NOTE PSYCH ---
Psych (Inpt) Progress Note Progress Note Include the following elements, when applicable: Involvement in the active treatment of the patient with behavioral observations of the patient and the patient's response to the treatment. Review of the ongoing treatment process in the context of the treatment plan. Indication of how multi-disciplinary staff members are carrying out the treatment plan. Plans for future interventions and recommendations for revision of the treatment plan. Liaison with other physicians/providers. Progress Note: Medication list reviewed. Case discussed with RN, who reports that the patient is status quo, unchanged. VS are stable so we are changing frequency to daily. Patient seen at 10:48 a.m. States that there is something wrong with how staff are treating her. Claims she was interrupted during bathroom use and that there is insufficient toilet paper (I conveyed this information to RN). Wants to go home. Claims she is getting sick with the food here and people upset her. Appears anxious/paranoid and speech is rapid/pressured. Denies SI, HI, AH and VH. Sleep: fine. Appetite/energy: both reported as okay. Tolerating medications well. Reports that naproxen is working for her knee. IMPRESSION: Slow progress. Remains very symptomatic. Continue present treatment plan.
[2017-09-16 08:36] VITALS: BP 127/71
--- NOTE | 2017-09-16 15:08 | CP SOUTH PROGRESS NOTE PSYCH ---
Psych (Inpt) Progress Note Progress Note Include the following elements, when applicable: Involvement in the active treatment of the patient with behavioral observations of the patient and the patient's response to the treatment. Review of the ongoing treatment process in the context of the treatment plan. Indication of how multi-disciplinary staff members are carrying out the treatment plan. Plans for future interventions and recommendations for revision of the treatment plan. Liaison with other physicians/providers. Progress Note: Case disucssed with RN, who reports that there has been no change. Patient seen at 1:25 pm. Has a visitor but interrupted visit to meet with me. Feels okay. Speech is less pressured today. Affect is calm and blunted. Stated "my dad is my dad and my mom is my mom. I didn't do anything wrong. I want to go back home. [place] towns are beautiful." Thinking is loose/ disorganized. Mood is "great." Sad 0/10. Anxiety 0/10. Denies feeling hopeless, helpless, worthless or guilty. Denies SI, HI, AH, VH and PI. Sleep: okay, then stated "people are really nice here." Reports appetite is good. Tolerating medications well, without complaint. Feels a little sleepy today but appears awake and alert. IMPRESSION: Slow progress. Continue present treatment plan. On [facility] for [facility].
[2017-09-17 08:15] VITALS: BP 147/85
[2017-09-17 12:09] VITALS: BP 136/79
--- NOTE | 2017-09-17 17:31 | CP SOUTH PROGRESS NOTE PSYCH ---
Psych (Inpt) Progress Note Progress Note Include the following elements, when applicable: Involvement in the active treatment of the patient with behavioral observations of the patient and the patient's response to the treatment. Review of the ongoing treatment process in the context of the treatment plan. Indication of how multi-disciplinary staff members are carrying out the treatment plan. Plans for future interventions and recommendations for revision of the treatment plan. Liaison with other physicians/providers. Progress Note: The patient was seen 1: 1 and discussed with the unit staff. She was reportedly not interacting with peers, her interactions with staff members has been appropriate. We reviewed the progress notes and the initial executive relations specialist's assessment. She is a 42-year-old old, single female, in treatment for schizoaffective disorder bipolar type. She is a medium height and weight female with short cut, curly, light brown hair wearing hospital issued paper scrubs. She is slightly agitated. She speaks was well articulated, fast, disorganized speech. Her tone of speech is urgent and slightly because proration. Her T scores is nonsensical. She alludes to things that people do tell her to her parents from time to time stating that she is completely able to take care of herself, take her medication, and she does not need to be in a state hospital bed. She denies suicidal/homicidal ideation, auditory/visual hallucinations, she is compliant with her medications and there are no side effects reported or observed. Her behavior on the unit is bizarre, we observed her cleaning the sink in the hallway and the cabinets very carefully with a towel which she folded in a specific way and then took it and threw it in a laundry basket. When asked why she was doing it she says "this is what I do. I do this all the time. It needs to be done". The patient continues to be psychotic and gravely disabled, needing long-term inpatient psychiatric stabilization. She will continue present management for now and be followed up daily by the unit psychiatrist.
[2017-09-18 07:54] VITALS: BP 137/89
--- NOTE | 2017-09-18 11:26 | CP SOUTH PROGRESS NOTE PSYCH ---
Psych (Inpt) Progress Note Progress Note Sharif progress and treatment were reviewed by the multidisciplinary treatment team in the morning daily meeting. I also reviewed Dr. Lu note from yesterday. Dr. Medeiros indicated that Padmini was: slightly agitated, speech was fast, disorganized, denied suicidal/homicidal ideation, denied auditory/visual hallucinations, compliant with her medications and there are no side effects reported or observed, behavior on the unit is bizarre, we observed her cleaning the sink in the hallway and the cabinets very carefully with a towel which she folded in a specific way and then took it and threw it in a laundry basket. When asked why she was doing it she says "this is what I do. I do this all the time. It needs to be done." Mental Status Examination today 09/18/2017: Padmini was alert and oriented to time, place, and person. She was calm. Her affect remains blunted. Padmini was not talkative today. Her thought process is less disorganized thought. She denied hallucinations and denied feeling depressed for several weeks now (except being frustrated at being inpatient for so long). She denied feeling anxious, denied feeling hopeless or worthless, and denied wishing or thinking of suicide or violence. There was a general paranoid view of people but no specific delusions during interview Assessment and Summary: Padmini is a 42-year-old old, single female, in treatment for schizoaffective disorder bipolar type. She has been inpatient a little over 2 months. She continues to be thought disordered and slightly paranoid. However, she has not been voicing thoughts of suicide or homicide since admission. Padmini is awaiting a bed at [facility]. She is showing very minimal and slow progress. Does not believe she needs medications but is taking them, I approached IM depot meds again with her and she did not want to take them. Treatment Plan Update: Continue Inpatient Psych Care I explored aftercare plan B with her if a bed does not open up in the next couple of weeks (she said she has stable housing but not sure about transportation to [facility], although she is said shes willing to do an IOP) Reduce carbamazepine (Tegretol) to 200 mg BID, no need to re-check levels since it is slated to be discontinued in a week or two Continue haloperidol 5 mg at bedtime Continue Naprosyn 250 mg BID for knee pain (with additional PRN Ibuprofen if needed) Discontinue PRN Gabapentin Continue other medications unchanged Nursing assessments once a shift Group therapy, Milieu/Activity therapy Daily MD evaluations Social work to maintain contact with [facility], family, and coordinate alternatives to [facility] if need be
--- NOTE | 2017-09-18 16:19 | SOCIAL WORKER PROG NOTE PSYCH ---
Social Work Progress Note Progress Note 10:10am This junior technical writer met with patient who stated that she would like to return home; she stated that she meet with Dr. Hurtado this morning and understood that she would be discharged. Patient stated that she had, in the past, experienced difficulty filling medications at the pharmacy due to an issue with her credit card. Patient changed the topic and discussed hoping that her father would bring in clothes, which she states that he had agreed to do. This junior technical writer discussed patient's understanding that she would be discharged with Dr. Hurtado. He confirmed that this was not the case and would clarify with the patient.
[2017-09-19 07:57] VITALS: BP 159/87
--- NOTE | 2017-09-19 13:50 | CP SOUTH PROGRESS NOTE PSYCH ---
Psych (Inpt) Progress Note Progress Note Sharif progress and treatment were reviewed by the multidisciplinary treatment team in the morning daily meeting. Mental Status Examination: Padmini was alert and oriented to time, place, and person. She was calm. Her affect seemed brighter today (she smiled a couple of times during interview). Padmini was not talkative today. Her thought process is is showing more coherence and goal direction. She denied hallucinations and denied feeling depressed. She denied feeling anxious, denied feeling hopeless or worthless, and denied wishing or thinking of suicide or violence. There was a general paranoid view of people but no specific delusions during interview Assessment and Summary: Padmini is a 42-year-old single White female with schizoaffective disorder bipolar type. She has been inpatient a little over 2 months. She continues to be thought disordered and slightly paranoid. However, she has not been voicing thoughts of suicide or homicide since admission. Padmini is awaiting a bed at [facility]. She is showing very minimal and slow progress. Treatment Plan Update: Continue Inpatient Psych Care Continue carbamazepine (Tegretol) 200 mg BID, no need to re-check levels since it is slated to be discontinued in a week or two Continue haloperidol 5 mg at bedtime Increase Naprosyn to 500 mg BID for knee pain (with additional PRN Ibuprofen if needed) Change Ditropan to 10 mg daily (she wanted 15 mg once daily but we don't have Ditropan XR on formulary) Continue other medications unchanged Nursing assessments once a shift Group therapy, Milieu/Activity therapy Daily MD evaluations Social work to maintain contact with [facility], family, and coordinate alternatives to [facility] if need be
--- NOTE | 2017-09-19 18:42 | SOCIAL WORKER PROG NOTE PSYCH ---
Social Work Progress Note Progress Note 5:43pm This commercial insurance underwriter met with patient. She stated, "my mood's great." Patient discussed benefitting from group sessions here on the unit. She discussed wishing that her mother would visit and plans on calling her later today. Patient expressed feeling saddened about the referral to [facility] and hopes that she can go home instead. Patient will discuss this further with Dr. Hurtado.
[2017-09-20 08:46] VITALS: BP 140/86
--- NOTE | 2017-09-20 14:39 | CP SOUTH PROGRESS NOTE PSYCH ---
Psych (Inpt) Progress Note Progress Note Sharif progress was reviewed by the multidisciplinary treatment team in the morning daily meeting. Mental Status Examination: Padmini was alert and oriented to time, place, and person. She was calm and her affect was constricted with with an occasional smile, Padmini was not talkative today. Her thought process was not incoherent showed some goal direction. She denied hallucinations and denied feeling depressed. She denied feeling anxious, denied feeling hopeless or worthless, and denied wishing or thinking of suicide or violence. general paranoid view of people no specific delusions during interview Assessment and Summary: Padmini is a 42-year-old single White female with Schizoaffective disorder bipolar type. She has been inpatient a little over 2 months. she has not been voicing thoughts of suicide or homicide since admission. Padmini is awaiting a bed at [facility]. She is showing minimal and slow progress. Treatment Plan Update: Continue Inpatient Psych Care Continue carbamazepine (Tegretol) 200 mg BID, no need to re-check levels since it is slated to be discontinued in a week or two Continue haloperidol 5 mg at bedtime Continue Naprosyn to 500 mg BID for knee pain (with additional PRN Ibuprofen if needed) Continue Ditropan 10 mg daily Continue other medications unchanged Nursing assessments once a shift Group therapy, Milieu/Activity therapy Daily MD evaluations Social work to maintain contact with [facility], family, and coordinate alternatives to [facility] if need be May explore discharge home to [facility] if there are no beds by october 06 or thereabouts
--- NOTE | 2017-09-20 16:22 | SOCIAL WORKER PROG NOTE PSYCH ---
Social Work Progress Note Progress Note dry cure worker met with Padmini in her room. Patient was initally in bed and stated she had knee pain. Patient reported nurses gave her Naprosyn for the pain. She stated this morning she went to morning planning meet and the activity group, however this morning foster care social worker observed her sleeping in her bed around 11:00 a.m. Patient decided to get out of bed during our meeting and stated she had plans to attend the rest of groups today. She reported she hoped her dad visits today and that her mom has visited her in the past.
[2017-09-21 09:38] VITALS: BP 145/85
--- NOTE | 2017-09-21 11:32 | CP SOUTH PROGRESS NOTE PSYCH ---
Psych (Inpt) Progress Note Progress Note The multidisciplinary treatment team reviewed Sharif progress and treatment plan. Mental Status Examination: Padmini was alert, oriented to time, place, and person. She was calm, was not talkative today. Her thought process was not incoherent/showed some goal direction. She denied hallucinations and denied feeling depressed. She denied feeling anxious, denied feeling hopeless or worthless, and denied wishing or thinking of suicide or violence. Padmini did not mention specific paranoid delusions but it seems that she has a general suspicious stance Assessment: Padmini is a 42-year-old single White female who has been inpatient since 2016. Padmini is awaiting a bed at [facility]. She is showing minimal and slow progress. Padmini is believed to have a Schizoaffective Disorder. Treatment Plan Update: Continue Inpatient Psychiatric Care Reduce carbamazepine (Tegretol) to 200 mg at bedtime, no need to re-check levels since it is slated to be discontinued in a week or so Increase haloperidol to 7 mg at bedtime Continue Naprosyn to 500 mg BID for knee pain (with additional PRN Ibuprofen if needed) Continue Ditropan 10 mg daily Reduce Zyprexa to 10 mg at bedtime Continue other medications unchanged Continue Nursing assessments once a shift Group therapy, Milieu/Activity therapy Daily MD evaluations May explore discharge home with [facility] aftercare if there are no beds at [facility] by October 05 or thereabouts thereabouts
--- NOTE | 2017-09-21 14:21 | SOCIAL WORKER PROG NOTE PSYCH ---
Social Work Progress Note Progress Note 1:35pm This lead technical writer met with patient. She presented as positive and upbeat today, however, quiet which this lead technical writer observed with the patient. She stated that she believed that her medications were causing her to feel tired and further stated that she had spoken with the psychiatrist about this who is lowering the dose or doses to her medications. Patient discussed positive experiences during her life, particularly obtaining her high school diploma through adult education classes. She shared that, from there, she attending college courses at [employer] where she studied introduction to psychology. Patient reported having positive memories of her time in school and feeling as though the teachers "were nice." Patient requested to return to the art therapy group that was currently being held on the unit and identified this group as enjoyable.
[2017-09-22 08:33] VITALS: BP 131/94
--- NOTE | 2017-09-22 12:08 | CP SOUTH PROGRESS NOTE PSYCH ---
Psych (Inpt) Progress Note Progress Note Include the following elements, when applicable: Involvement in the active treatment of the patient with behavioral observations of the patient and the patient's response to the treatment. Review of the ongoing treatment process in the context of the treatment plan. Indication of how multi-disciplinary staff members are carrying out the treatment plan. Plans for future interventions and recommendations for revision of the treatment plan. Liaison with other physicians/providers. Progress Note: Chart reviewed. Progress discussed with nursing staff. Interviewed patient this morning. Patient reports feeling okay this morning. Had various somatic complaints, including right knee pain which she noted is chronic for her and she feels is improving slowly. She did discuss tangentially her concern about lactose intolerance which was difficult to follow. Otherwise says she is feeling fine, denies any medication side effects, denies any SI or HI, denies any AVH. Vital signs were reviewed and were within normal limits. No new laboratory results today. Mental status exam: Disheveled, hirsute appearing female sitting by fishtank. No abnormal movements. Fairly conversant today with quick speech, normal volume. Mood was "okay ", affect was blunted, non-labile. Thought process was circumstantial. thought content without suicidal or homicidal ideation. Cognition was grossly intact. Denies any perceptual disturbances. Insight and judgment was limited. Assessment: Padmini is a 42-year-old single White female who has been inpatient since 2016. Padmini is awaiting a bed at [facility]. She is showing minimal and slow progress. Padmini is believed to have a Schizoaffective Disorder. Treatment Plan Update: Continue Inpatient Psychiatric Care Reduce carbamazepine (Tegretol) to 200 mg at bedtime, no need to re-check levels since it is slated to be discontinued in a week or so Increase haloperidol to 7 mg at bedtime Continue Naprosyn to 500 mg BID for knee pain (with additional PRN Ibuprofen if needed) Continue Ditropan 10 mg daily Reduce Zyprexa to 10 mg at bedtime Continue other medications unchanged Continue Nursing assessments once a shift Group therapy, Milieu/Activity therapy Daily MD evaluations May explore discharge home with [facility] aftercare if there are no beds at [facility] by October 05 or thereabouts
[2017-09-23 08:17] VITALS: BP 142/82
--- NOTE | 2017-09-23 11:52 | CP SOUTH PROGRESS NOTE PSYCH ---
Psych (Inpt) Progress Note Progress Note Include the following elements, when applicable: Involvement in the active treatment of the patient with behavioral observations of the patient and the patient's response to the treatment. Review of the ongoing treatment process in the context of the treatment plan. Indication of how multi-disciplinary staff members are carrying out the treatment plan. Plans for future interventions and recommendations for revision of the treatment plan. Liaison with other physicians/providers. Progress Note: Chart reviewed. Progress discussed with nursing staff. Interviewed patient this morning. Again patient reports feeling okay this morning. Continues to note chronic mild right knee pain. Otherwise reports feeling fine, denies any medication side effects, denies any SI or HI, denies any AVH. Vital signs were reviewed and were within normal limits. No new laboratory results today. Mental status exam: Disheveled female resting in bed. No abnormal movements. Less conversant today though speech was rapid, normal volume. Mood was "okay ", affect was blunted, non-labile. Thought process was circumstantial. thought content without suicidal or homicidal ideation. Cognition was grossly intact. Denies any perceptual disturbances. Insight and judgment was limited. Assessment: Padmini is a 42-year-old single White female who has been inpatient since 2016. Padmini is awaiting a bed at [facility]. She is showing minimal and slow progress. Padmini is believed to have a Schizoaffective Disorder. Will continue present management as per primary team.
[2017-09-24 08:12] VITALS: BP 142/98
--- NOTE | 2017-09-24 11:44 | CP SOUTH PROGRESS NOTE PSYCH ---
Psych (Inpt) Progress Note Progress Note The multidisciplinary treatment team reviewed Sharif progress and treatment plan in the morning report. Mental Status Examination: Padmini is very bother by weight gain (most likely due to Zyprexa and Paroxetine). Padmini was alert and oriented to time, place, and person. She was calm and cooperative. She was not talkative and not pressured. Her thought process seemed more goal-directed and not incoherent. She denied experiencing hallucinations; denied feeling depressed, and denied feeling anxious. Padmini denied feeling hopeless or worthless, and denied wishing or thinking of suicide or violence. Padmini did not mention specific paranoid delusions. There was no observable delusions, still has germo-phobia, does not touch door knops, washes hands frequently. Assessment: Padmini is a 42-year-old single White female who has been inpatient since 2016. Padmini is awaiting a bed at [facility]. She is showing minimal and slow progress. Padmini is believed to have a Schizoaffective Disorder. She has not been experiencing any thoughts of suicide or violence. Treatment Plan Update: Continue Inpatient Psychiatric Care Continue carbamazepine (Tegretol) 200 mg at bedtime, no need to re-check levels since it is slated to be discontinued Continue haloperidol 7 mg at bedtime Continue Naprosyn to 500 mg BID for knee pain (with additional PRN Ibuprofen if needed) Continue Ditropan 10 mg daily Continue Zyprexa 10 mg at bedtime Reduce paroxetine to 30 mg daily (to help mitigate weight gain) Continue other medications unchanged Continue nursing assessments once a shift Continue Group therapy, Milieu/Activity therapy Continue daily MD evaluations
--- NOTE | 2017-09-24 15:58 | SOCIAL WORKER PROG NOTE PSYCH ---
See Addendum Social Work Progress Note Progress Note 10:19am This comic book writer left for [facility] Admission ([phone]) with call back number. 11:30am This comic book writer met with patient. She presented as tangential, pressured and guarded. Patient's discussion had themes related to relationships and feeling that she had been incorrectly informed of possibly being in the past. Patient provided vague information throughout the discussion and would not expand on any details, despite inquiry by this comic book writer. 3:30pm Patient requested to meet with this comic book writer. She expressed concerns about people following her both on this unit and when she is at home. She stated that she believed that people were removing her earrings while she was sleeping and stated that her sister was knocking on the bathroom door when she is in the bathroom. "My sister should be here [on [facility]] and she shouldn't be bothering me or knocking on the door." Patient presented as more paranoid and pressured than earlier today. This comic book writer relayed this information to the nursing staff.
[2017-09-25 08:33] VITALS: BP 143/86
--- NOTE | 2017-09-25 14:35 | CP SOUTH PROGRESS NOTE PSYCH ---
Psych (Inpt) Progress Note Progress Note The multidisciplinary treatment team reviewed Sharif progress and treatment plan in its morning meeting. Bailey Anderson LCSW reported that yesterday afternoon Padmini asked to talk to her and she seemed more paranoid than usual Mental Status Examination: Padmini was in bed around 11 AM, she was not sleeping but seemed tired/sedated She was still alert and oriented to time, place, and person. She was calm, she was not talkative and not pressured. Her thought process was difficult to chicken cleaner today because she answered yes/no/ or one word answers. She denied experiencing hallucinations; denied feeling depressed, and denied feeling anxious. Padmini denied feeling hopeless or worthless, and denied wishing or thinking of suicide. She denied violent thoughts or thoughts of homicide. Padmini did not mention specific paranoid delusions with me today (but Bailey Anderson LCSW mentioned very specific delusions from her encounter with patient yesterday), she still has germo-phobia, does not touch door knops, washes hands frequently. Assessment: Padmini is a 42-year-old single White female who has been on the inpatient psychiatric unit since 2016. Padmini is awaiting a bed at [facility]. She is showing minimal and slow progress. Padmini is believed to have a Schizoaffective Disorder. She has not been experiencing any thoughts of suicide or violence. Treatment Plan Update: Discontinue carbamazepine Add lorazepam 1 mg PO at bedtime Continue inpatient psychiatric care Continue haloperidol 5 mg BID Continue Naprosyn to 500 mg BID for knee pain Continue additional PRN Ibuprofen if needed Continue Ditropan 10 mg daily Continue Zyprexa 10 mg at bedtime Continue paroxetine to 30 mg daily (to help mitigate weight gain) Continue other medications unchanged Continue nursing assessments once a shift Continue Group therapy, Milieu/Activity therapy Continue daily MD evaluations
--- NOTE | 2017-09-25 19:07 | SOCIAL WORKER PROG NOTE PSYCH ---
Social Work Progress Note Progress Note 5:58pm This commercial insurance underwriter met with patient. She presented with a smile and expressed suraj over creating a frog out of marlee in group today. Patient requested to end this meeting due to her mother visiting. Patient stated that she was feeling well and was willing to meet again tomorrow.
[2017-09-26 07:50] VITALS: BP 147/84
--- NOTE | 2017-09-26 08:49 | CP SOUTH PROGRESS NOTE PSYCH ---
Psych (Inpt) Progress Note Progress Note Padmini was still in bed 10 minutes to 9:00 AM, she reported feeling too tired although she said she slept throught the night Mental Status Examination: Padmini was in bed, seemed tired/sedated. She was aroused for breakfast, mildly gruggy but alert and oriented to time, place, and person. She was calm, she was not talkative and not pressured. Her thought process still difficult to log loader helper (yes/no and one word answers). She denied experiencing hallucinations; denied feeling depressed, and denied feeling anxious. Padmini denied feeling hopeless or worthless, and denied wishing or thinking of suicide. She denied violent thoughts or thoughts of homicide. When asked about the specific paranoid delusions that she reported to Bailey Anderson LCSW she acknowledged some of them (e.g. people following her, removing her earrings while she was sleeping, her sister was knocking on the bathroom door when she is in the bathroom) but denied that she is having them today, does not believe she has OCD but still has germo-phobia, does not touch door knops, washes hands frequently. Assessment: Padmini is a 42-year-old single White female who has been on the inpatient psychiatric unit since 2016. Padmini is awaiting a bed at [facility]. She is showing minimal and slow progress. Padmini is believed to have a Schizoaffective Disorder. She has not been experiencing any thoughts of suicide or violence. Treatment Plan Update: Continue inpatient psychiatric care Reduce Zyprexa to 7.5 mg at bedtime (due to excessive sedation and significant weight gain, tansition to Haldol) Continue lorazepam 1 mg PO at bedtime Continue haloperidol 5 mg BID Continue Naprosyn to 500 mg BID for knee pain Continue additional PRN Ibuprofen if needed Continue Ditropan 10 mg daily Continue paroxetine to 30 mg daily Continue other medications unchanged Continue nursing assessments once a shift Continue Group therapy, Continue Milieu/Activity therapy Continue daily MD evaluations
--- NOTE | 2017-09-26 15:15 | SOCIAL WORKER PROG NOTE PSYCH ---
Neisha Medrano 09/26/17 1510: Social Work Progress Note Progress Note Public Defender met with Padmini today who reported to be feeling well. She denied any AH /VH and suicidal ideation. She stated that she has been going to groups and has been finding them helpful. She excitedly told this fiction and nonfiction prose writer about a marlee frog and handprint that she made in group yesterday and how she was excited to paint the frog today. She also stated that she has found the groups helpful as they allows to talk about things that upset her. Public Defender asked her what sort of things were bothering her. Padmini reported that her mother upset her because she said something mean about Padmini's hair when she was visiting here on the unit. Public Defender told Padmini that sometimes family members say hurtful things to each other, but that ultimately in the end, it is Padmini's hair and that she is allowed to do what she wants with it. Public Defender also told Padmini that it would be okay for her to tell her mother that what she said was hurtful, and that she could do the same thing in similar situations, if other family members or people were to say something mean to her. and Padmini also spoke about discharge plans. informed Padmini that she may discharge home on the 05 of October if a bed at [facility] does not open up, but that in order for Padmini to discharge home, that she would need to have aftercare plans set up with [facility]. Padmini was amenable to this plan, and signed a release for [facility]. She stated that she feels safe at home and that she would like to have care coordination through [facility]. Padmini later approached in the milieu to ask fiction and nonfiction prose writer for the number for a replacement EBT card, as she stated that someone stole hers. gave Padmini the number to call ( ).
[2017-09-27 08:02] VITALS: BP 143/90
--- NOTE | 2017-09-27 13:32 | SOCIAL WORKER PROG NOTE PSYCH ---
Social Work Progress Note Progress Note 10:05am This sports book writer met with the patient. She was in bed and stated that she was tired, but willing to meet. She described her mood as "good but sleepy." Patient is still agreeable to returning to [facility] should she be discharged from this hospital and willing to engage in IOP, medication management and case management services. Patient was informed of [facility] as well as visiting nurse services, both of which she was not interested in utilizing and refused a referral. She was agreeable to scheduling a meeting with [facility] prior to discharge.
--- NOTE | 2017-09-27 16:47 | CP SOUTH PROGRESS NOTE PSYCH ---
Psych (Inpt) Progress Note Progress Note Mental Status Examination: Padmini was less tired/less sedated. She was alert and oriented to time, place, and person. She was calm, she was not talkative and not pressured. Her thought process was not incoherent. She denied experiencing hallucinations; denied feeling depressed , and denied feeling anxious. Padmini denied feeling hopeless or worthless, and denied wishing or thinking of suicide. She denied violent thoughts or thoughts of homicide. I could not elicit specific paranoid delusions today. still has germo-phobia, does not touch door knops, washes hands frequently. Assessment: Padmini is a 42-year-old single White female who has been on the inpatient psychiatric unit since 2016. Padmini is awaiting a bed at [facility]. She is showing minimal and slow progress. Padmini is believed to have a Schizoaffective Disorder. She has not been experiencing any thoughts of suicide or violence. Treatment Plan Update: Continue inpatient psychiatric care Continue Zyprexa 7.5 mg at bedtime Continue lorazepam 1 mg PO at bedtime Continue haloperidol 5 mg BID Continue Naprosyn to 500 mg BID for knee pain Continue additional PRN Ibuprofen if needed Continue Ditropan 10 mg daily Continue paroxetine to 30 mg daily Continue other medications unchanged Continue nursing assessments once a shift Continue Group therapy, Continue Milieu/Activity therapy Continue daily MD evaluations Continue nursing assessments once a shift Continue Group therapy, Continue Milieu/Activity therapy Continue daily MD evaluations
[2017-09-28 08:33] VITALS: BP 139/98
--- NOTE | 2017-09-28 14:41 | CP SOUTH PROGRESS NOTE PSYCH ---
Psych (Inpt) Progress Note Progress Note The multidisciplinary treatment team discussed the patients treatment and progress, the team included nursing staff, social work staff, group therapists and activity therapists and an art therapist Mental Status Examination: Padmini was less tired/less sedated. She was alert and oriented to time, place, and person. She was calm, not talkative and not pressured. Her thought process was not incoherent. She denied experiencing hallucinations; denied feeling depressed, and denied feeling anxious. Padmini denied feeling hopeless or worthless, and denied wishing or thinking of suicide. She denied violent thoughts or thoughts of homicide. I could not elicit specific paranoid delusions today. Padmini still has fear of germs /contamination, does not touch door knops/ washes hands frequently. Assessment: Padmini is a 42-year-old single White female who has been on the inpatient psychiatric unit since 2016. Padmini is slated for discharge on Oct 04 or , showing minimal and slow progress. I believed has a schizoaffective disorder or schizophrenia. She has not been experiencing any thoughts of suicide or violence. Treatment Plan Update: Continue inpatient psychiatric care Reduce Zyprexa to 5 mg at bedtime Reduce paroxetine to 20 mg daily Continue lorazepam 1 mg PO at bedtime Continue haloperidol 5 mg BID Continue Naprosyn to 500 mg BID for knee pain Continue additional PRN Ibuprofen if needed Continue Ditropan 10 mg daily Continue nursing assessments once a shift Continue Group therapy, Continue Milieu/Activity therapy Continue daily MD evaluations Continue discharge planning for Oct 04 or by social work
--- NOTE | 2017-09-28 18:46 | SOCIAL WORKER PROG NOTE PSYCH ---
Social Work Progress Note Progress Note 4:40pm This junior copywriter met withe patient. She presented as positive and upbeat, less pressured than prior discussion and more organized. Patient discussed interest in following up with [facility] upon discharge and clarified what she would need to do (attend intake appointment to begin IOP, meet with child support case officer). Patient was informed that this junior copywriter would continue to pursue the bed at [facility], however , has been told each time they were contacted that they do not have available beds at this time. Patient was initially surprised that a possible discharge plan to [facility] was identified as with [facility] and not IOP. She stated that she was agreeable to either. Patient was not agreeable to a referral to [facility], [facility] or a visiting nurse.
[2017-09-29 07:45] VITALS: BP 138/93
--- NOTE | 2017-09-29 08:49 | CP SOUTH PROGRESS NOTE PSYCH ---
Psych (Inpt) Progress Note Progress Note Include the following elements, when applicable: Involvement in the active treatment of the patient with behavioral observations of the patient and the patient's response to the treatment. Review of the ongoing treatment process in the context of the treatment plan. Indication of how multi-disciplinary staff members are carrying out the treatment plan. Plans for future interventions and recommendations for revision of the treatment plan. Liaison with other physicians/providers. Progress Note: Pt notes "great" mood. Had visit from her father one day ago. Feels he is very supportive. Denies SI or HI. Denied AVHs. Current Medications Sig/Mynor Start time Last Medication Dose Route Stop Time Status Admin Acetaminophen 650 MG Q6P PRN 07/18 1730 AC PO Al Hydroxide/Mg 30 ML Q4-6 PRN PRN 07/18 1745 AC Hydroxide PO Albuterol Sulfate 2 PUF Q6P PRN 07/18 1800 AC INH Diclofenac Sodium 1 SHAILA 4 TIMES/DAY 09/26 2200 AC 09/29 TOP 0834 Haloperidol 5 MG BID 09/24 2200 AC 09/29 PO 0834 Haloperidol 2 MG Q6-PRN PRN 09/24 1600 AC 09/24 PO 1736 Ibuprofen 600 MG Q6P PRN 09/09 1015 AC 09/11 PO 2118 Loperamide HCl 2 MG Q6P PRN 08/30 1600 AC 09/27 PO 1301 Lorazepam 1 MG AT BEDTIME 09/25 2200 AC 09/28 PO 2126 Magnesium Hydroxide 30 ML AT BEDTIME PRN 07/18 1745 AC PO Naproxen 500 MG BID 09/19 2200 AC 09/29 PO 0834 Olanzapine 5 MG AT BEDTIME 09/28 2200 AC 09/28 PO 2126 Olanzapine 7.5 MG AT BEDTIME 09/26 2200 DC 09/27 PO 2123 Oxybutynin Chloride 10 MG DAILY 09/20 1000 AC 09/29 PO 0833 Paroxetine HCl 20 MG DAILY 09/29 1000 AC 09/29 PO 0834 Paroxetine HCl 30 MG DAILY 09/25 1000 DC 09/28 PO 0849 Vital Signs Date Time Temp Pulse Resp B/P B/P Pulse O2 O2 Flow FiO2 Mean Ox Delivery Rate 09/29 0745 97.2 82 138/93 MSE General appearance: good hygiene and grooming; Attitude: cooperative; Eye contact: appropriate; Movement: no psychomotor agitation or slowing; Speech: nl fluency, nl rate/rhythm, nl volume, nl prosody; Mood: "great" Affect: euthymic but flat, appropriate, constricted, non-labile, congruent; Thought process: linear and goal-directed; Thought content: denied SI or HI, no paranoid ideation; Perception: denied hallucinations- auditory, visual, does not appear to be responding to internal stimuli; I/J: limited A/P: Pt with schizoaffective disorder with improved mood and thought process from admission. -Continue current medication regimen -Encourage integration into the milieu
[2017-09-30 08:25] VITALS: BP 139/90
--- NOTE | 2017-09-30 13:12 | CP SOUTH PROGRESS NOTE PSYCH ---
Psych (Inpt) Progress Note Progress Note Include the following elements, when applicable: Involvement in the active treatment of the patient with behavioral observations of the patient and the patient's response to the treatment. Review of the ongoing treatment process in the context of the treatment plan. Indication of how multi-disciplinary staff members are carrying out the treatment plan. Plans for future interventions and recommendations for revision of the treatment plan. Liaison with other physicians/providers. Progress Note: Pt reports good mood. Attended groups which she likes. Denies SI or HI. Denies AVHs. Tired this morning but slept well overnight. Current Medications Sig/Mynor Start time Last Medication Dose Route Stop Time Status Admin Acetaminophen 650 MG Q6P PRN 07/18 1730 AC PO Al Hydroxide/Mg 30 ML Q4-6 PRN PRN 07/18 1745 AC Hydroxide PO Albuterol Sulfate 2 PUF Q6P PRN 07/18 1800 AC INH Diclofenac Sodium 1 SHAILA 4 TIMES/DAY 09/26 2200 AC 09/30 TOP 1141 Haloperidol 5 MG BID 09/24 2200 AC 09/30 PO 0824 Haloperidol 2 MG Q6-PRN PRN 09/24 1600 AC 09/24 PO 1736 Ibuprofen 600 MG Q6P PRN 09/09 1015 AC 09/11 PO 2118 Loperamide HCl 2 MG Q6P PRN 08/30 1600 AC 09/27 PO 1301 Lorazepam 1 MG AT BEDTIME 09/25 2200 AC 09/29 PO 2121 Magnesium Hydroxide 30 ML AT BEDTIME PRN 07/18 1745 AC PO Naproxen 500 MG BID 09/19 220 AC 09/30 PO 0823 Olanzapine 5 MG AT BEDTIME 09/28 2200 AC 09/29 PO 2122 Oxybutynin Chloride 10 MG DAILY 09/20 1000 AC 09/30 PO 0824 Paroxetine HCl 20 MG DAILY 09/29 1000 AC 09/30 PO 0823 Vital Signs Date Time Temp Pulse Resp B/P B/P Pulse O2 O2 Flow FiO2 Mean Ox Delivery Rate 09/30 0825 96.6 73 139/90 MSE General appearance: good hygiene and grooming; Attitude: cooperative; Eye contact: appropriate; Movement: no psychomotor agitation or slowing; Speech: nl fluency, nl rate/rhythm, nl volume, nl prosody; Mood: "great but tired right now" Affect: euthymic but flat, appropriate, constricted, non-labile, congruent; Thought process: linear and goal-directed; Thought content: denied SI or HI, no paranoid ideation; Perception: denied hallucinations- auditory, visual, does not appear to be responding to internal stimuli; I/J: limited A/P: Pt with schizoaffective disorder with improved mood and thought process from admission. -Continue current medication regimen -Encourage integration into the milieu
[2017-10-01 08:30] VITALS: BP 145/91
--- NOTE | 2017-10-01 15:00 | CP SOUTH PROGRESS NOTE PSYCH ---
Psych (Inpt) Progress Note Progress Note The multidisciplinary treatment team discussed the patients treatment and progress, the team included Nursing staff, Social work staff, Group therapists and activity therapists and an art therapist, and Psychiatrist Mental Status Examination: Padmini seemed to be in good spirits this afternoon, still too sleepy in AM. She was alert and oriented to time, place, and person. She was calm, not talkative and not pressured. Her thought process was not incoherent. She denied experiencing hallucinations; denied feeling depressed, and denied feeling anxious. Padmini denied feeling hopeless or worthless, and denied wishing or thinking of suicide. She denied violent thoughts or thoughts of homicide. I could not elicit specific paranoid delusions (still has fear of germs / contamination, does not touch door knops/washes hands frequently). Assessment: Padmini is a 42-year-old single White female who has been on the inpatient psychiatric unit since 2016. Padmini is slated for discharge on Oct 04, showing minimal and slow progress. I believed has a schizoaffective disorder or schizophrenia. She has not been experiencing any thoughts of suicide or violence. Treatment Plan Update: Continue inpatient psychiatric care Continue Zyprexa to 5 mg at bedtime Continue paroxetine to 20 mg daily Continue lorazepam 1 mg at bedtime Continue haloperidol 5 mg BID Continue Naprosyn to 500 mg BID for knee pain Continue additional PRN Ibuprofen if needed Continue Ditropan 10 mg daily Nursing Staff to continue nursing assessments once a shift Continue Group therapy, Continue Milieu/Activity therapy Psychiatrist to continue daily MD evaluations Social Work to continue discharge planning for Oct 04
--- NOTE | 2017-10-01 16:44 | SOCIAL WORKER PROG NOTE PSYCH ---
Social Work Progress Note Progress Note 1:33pm This magnetic tape typewriter operator contacted [facility] and spoke with Angela. She suggested that this magnetic tape typewriter operator call tomorrow to speak with Todd as the regular staff are not in today due to the holiday. 3pm This magnetic tape typewriter operator met with the patient. She presented with a big smile and discussed the groups she has been attending. "I've worked on some nice projects!" Patient discussed interest in going to [facility] for IOP; she was also informed of this magnetic tape typewriter operator's call to [facility] this morning and plan to follow up with them again tomorrow due to the holiday today. Patient stated, "Sometimes it's hard to accept that I have Bipolar Disorder." She discussed efforts that she will take to manage her illness, specifically taking medications as prescribed, going to [facility] at [facility] and meeting with a nurse outreach case manager. She was interested in meeting with [facility] this week while still in the hospital. She refused a referral to A as well as a visiting nurse. Patient stated that she has a pill container at home to ensure that she does not forgot to take her medications.
[2017-10-02 08:05] VITALS: BP 136/93
--- NOTE | 2017-10-02 11:27 | CP SOUTH PROGRESS NOTE PSYCH ---
Psych (Inpt) Progress Note Progress Note The multidisciplinary treatment team discussed the patients treatment and progress, the team included: Nursing staff, Social work staff, Group therapists, activity therapists, an art therapist, and Psychiatrists Mental Status Examination: Padmini reported that the morning haloperidol makes her too sleepy, she was in bed at 11:30 AM. She was alert and oriented to time, place, and person. She was calm, not talkative and not pressured. Her thought process a little more organized, denied experiencing hallucinations; denied feeling depressed, and denied feeling anxious. Padmini denied feeling hopeless or worthless, and denied wishing or thinking of suicide. She denied violent thoughts or thoughts of homicide. I could not elicit specific paranoid delusions Assessment: Padmini is a 42-year-old single White female who has been on the inpatient psychiatric unit since 2016. Padmini is slated for discharge this week, showing minimal and slow progress. I believed has a schizoaffective disorder or schizophrenia. She has not been experiencing any thoughts of suicide or violence. Treatment Plan Update: Continue inpatient psychiatric care Reduce Zyprexa to 2.5 mg at bedtime Continue paroxetine 20 mg daily Continue lorazepam 1 mg at bedtime Change haloperidol to 7.5 mg at bedtime Continue Naprosyn to 500 mg BID for knee pain Continue additional PRN Ibuprofen if needed Continue Ditropan 10 mg daily Nursing Staff shall continue nursing assessments once a shift Continue Group therapy, Continue Milieu/Activity therapy Psychiatrist shall provide daily evaluations Social Work to continue discharge planning for Oct 04 or
--- NOTE | 2017-10-02 13:55 | SOCIAL WORKER PROG NOTE PSYCH ---
Social Work Progress Note Progress Note Pt has been enjoying art groups, and is more reactive, and responsive in conversation. She reports she feels ok, she denies si/hi/ah/vh. She is less paranoid and more out in the community, she is open to IOP and working with CARE.
--- NOTE | 2017-10-02 17:52 | SOCIAL WORKER PROG NOTE PSYCH ---
Social Work Progress Note Progress Note 4:38pm This marketing underwriter left vm for Todd at [facility] with call back number. 4:40pm This marketing underwriter left vm for Katya Cleary at [facility] in response to her call. A call back number was provided. No patient information was included in this message. This marketing underwriter received a call from Ines at [facility] requesting an update. She was informed that outpatient treatment as well as [facility] hospital bed continues to be pursued/explored. Ines stated that the patient is not eligible for their IOP due to the patient's insurance. She stated that she could still utilize case management. She stated that [facility] recommends IOP and once the patient completes an IOP she would be able to return to outpatient services with [facility] (individual, group therapy and medication management). A meeting with the patient, Ines and case management has been scheduled for 10/04/17 at 2pm.
[2017-10-03 08:27] VITALS: BP 139/89
--- NOTE | 2017-10-03 09:14 | CP SOUTH PROGRESS NOTE PSYCH ---
Psych (Inpt) Progress Note Progress Note Padmini's progress and treatment were discussed in the multidisciplinary treatment team meeting, including Nursing staff, Social work staff, Group therapists, activity therapists, Art therapist, and Psychiatrist Mental Status Examination: Padmini reported that she is still feeling a little bit tired (although she was up and about before 9:00AM, which is quite an improvement from past few days) She was calm, not talkative, not pressured. Her thought process a little more organized, denied experiencing hallucinations; denied feeling depressed, and denied feeling anxious, denied feeling hopeless or worthless, denied wishing or thinking of suicide. She denied violent thoughts or thoughts of homicide. I could not elicit specific paranoid delusions, germ/contamination phobia Assessment: Padmini is a 42-year-old single White female who has been on the inpatient psychiatric unit since 2016. Padmini is showing slow progress. I believe she has a schizoaffective disorder or schizophrenia. She has not been experiencing any thoughts of suicide or violence. Treatment Plan Update: Continue inpatient psychiatric care Continuie Zyprexa 2.5 mg at bedtime Continue paroxetine 20 mg daily Continue lorazepam 1 mg at bedtime Coorect haloperidol dose is 7 mg at bedtime D/C Naprosyn Start Diclofenac sodium 75 mg BID for knee pain Continue additional PRN Ibuprofen if needed Continue Ditropan 10 mg daily Nursing Staff shall continue nursing assessments once a shift Continue Group therapy, Continue Milieu/Activity therapy Psychiatrist shall provide daily evaluations Social Work to continue discharge planning for Oct 04 or
--- NOTE | 2017-10-03 17:17 | SOCIAL WORKER PROG NOTE PSYCH ---
Social Work Progress Note Progress Note 4:10pm This assembly instructions writer met with patient. She reported that she was "feeling good". Patient was informed that this assembly instructions writer spoke with [facility] who is recommending IOP , however, they are unable to accept her insurance for their IOP. Patient was agreeable to a referral to IOP (which has been made). Patient was also informed that Ines from [facility] contacted this assembly instructions writer earlier today to schedule an appointment for case management and Ines to meet with the patient and this assembly instructions writer tomorrow at 12:30pm. Patient accepted this appointment. Patient presented as alert and oriented, engaged and spontaneous during this meeting.
[2017-10-04 07:53] VITALS: BP 135/78
--- NOTE | 2017-10-04 12:40 | CP SOUTH PROGRESS NOTE PSYCH ---
Psych (Inpt) Progress Note Progress Note Nursing Staff, Social Work Staff, Group Therapists, Activity therapists, Art therapist, and Psychiatrist met and discussed Padmini's progress and treatment plan including discharge/aftercare plans Mental Status Examination: Padmini was alert, and oriented. She showed better affective expressions. She was calm, not talkative, not pressured, and her thought process was a little more organized, Padmini denied experiencing hallucinations, denied feeling depressed, denied feeling anxious, denied feeling hopeless or worthless, and denied wishing or thinking of suicide. Padmini denied violent thoughts or thoughts of homicide. no specific paranoid delusions, OCD spectrum (germ/contamination phobia Assessment: Padmini is a 42-year-old single White female who has been on the inpatient psychiatric unit since 2016. Padmini continue to show slow progress. I believe her diagnosis to be: Schizoaffective disorder or schizophrenia. She has not been experiencing any thoughts of suicide or violence. Treatment Plan Update: may be discharged this afternoon if all outstanding logistical issues are resolved Otherwise, Continue inpatient psychiatric care Continue olanzapine (Zyprexa) 2.5 mg at bedtime Continue paroxetine 20 mg daily Continue lorazepam 1 mg at bedtime Continue haloperidol (Haldol) 7 mg at bedtime Continue Diclofenac sodium 75 mg BID for knee pain Continue additional PRN Ibuprofen if needed Continue Ditropan 10 mg daily Nursing Staff shall continue nursing assessments once a shift, vital signs monitoring, and educate Padmini on her medications effects and side effects Continue Group Therapy Continue Milieu/Activity therapy Psychiatrist shall provide daily evaluations Social Work to continue discharge planning
--- NOTE | 2017-10-04 16:43 | SOCIAL WORKER PROG NOTE PSYCH ---
Social Work Progress Note Progress Note 12:40pm This underwriter solicitation director and patient met with Ines and Nona from [facility] to discuss case management services that they could off the patient. This included case management groups such as grocery shopping groups and laundry groups. Patient appeared to become increasingly agitated during this discussion, especially regarding offers to help her with sorting through and paying her bills. It was determined that this underwriter solicitation director would meet with the patient later in the day. In addition, Nona stated that she would look into whether the patient's insurance would cover IOP at [facility], however, they feel that it would not. 2:40pm This underwriter solicitation director met with patient and discussed the concerns she had regarding the [facility] meeting earlier today. She expressed anxiety about people coming into her apartment, which she did not want. She also stated that she does not want a conservator and feels that that is was Nona and Ines were implying when discussing help with bills. This underwriter solicitation director and patient discussed how she could utilize support from others. She appeared to be more at ease by the end of this discussion. Patient inquired about [facility] and expressed interest in their services and meeting with them. She stated that she would like to continue with [facility] case management services. Patient was informed that this underwriter solicitation director is still exploring IOP's and looking to schedule an intake. Patient stated that she is not interested in a visiting nurse as she would not feel comfortable with any one coming into her apartment; she did confirm that she would be willing to accept transportation services from [facility] if available. This underwriter solicitation director provided patient with positive feedback and will follow up with her regarding the IOP intake when it is available.
[2017-10-05 08:47] VITALS: BP 141/79
[2017-10-05] MEDS ORDERED: HALOPERIDOL5 MG PO (13:58)
[2017-10-05] MEDS ORDERED: PAXIL20 M1 PO (13:58)
[2017-10-05] MEDS ORDERED: DICLOFENAC SODI75 M2 PO (13:58)
[2017-10-05] MEDS ORDERED: ATIVAN1 M1 PO (13:58)
[2017-10-05] MEDS ORDERED: HALOPERIDOL2 M1 PO (13:58)
--- NOTE | 2017-10-05 14:39 | DISCHARGE SUMMARY REPORT-PSYCH ---
Visit Information Visit Dates/Diagnosis' Admission Date: 07/18/2017 Discharge Date: 10/05/17 Reason for Admission: Pt is a 42 yo female biba to [facility] ED this afternoon on a [place] [employer] PEER. Witness called 911 due to pt displaying erratic behaviors. Pt presented with racing thoughts to [facility]. Pt has a recent hx of inpatient psychiatric treatment at [facility] and was recently discharged on Jul 05 with a plan to receive follow up care with OPS and CARE. Psy Discharge Primary Diag: Schizophrenia Hospital Course Significant Lab Findings: The patient had low hematocrit was marginally low at 36.7 at last testing which was on September 12, 2017 her hemoglobin was within normal range last reading was 12.6 on September 12 there was a minor elevation in the BUN at 19 which was the same as back in July 2017 she had normal GFR the patient had Tegretol levels in July on August but this is no longer relevant as the patient was gradually tapered off and then taken off Tegretol altogether Course Complications: There were no major complications while the patient was on Inpatient Psychiatry Consultations: The patient had a history and physical examination and had follow-up with the bundler because of knee pain Allergies: Coded Allergies: Penicillins (BLOTCHES, HIVES 04/17/16) Sulfa (Sulfonamide Antibiotics) (HIVES 04/17/16) ampicillin (HIVES 04/17/16) azithromycin (RASH 04/17/16) ciprofloxacin (From CIPRO) (HIVES, VOMITING 04/17/16) sulfamethoxazole (From BACTRIM) (HIVES 04/17/16) trimethoprim (From BACTRIM) (HIVES 04/17/16) Hospital Course/TX Response: The patient ended up staying for a long period of time on Inpatient Psychiatry. She was on commitment papers for long-term hospitalization. However the weight for [facility] proved to be too too long and the patient ended up staying almost up to 3 months on the inpatient unit. Although the patient continued to had some sort of sort of thought disorder as well as paranoid delusions, she was not seen as a risk to self or others throughout her stay on the inpatient unit. The patient was compliant with taking medications she was tried on several regimens during those 3 months. The patient ended up gaining significant amount of weight. There were some improvements in her mental status but no significant changes in the paranoid delusions although obsessive-compulsive spectrum symptoms that she was having. Condition upon discharge Mental Status Examination: Padmini was alert, and oriented to time, place, and person. She was calm, not talkative, not pressured, and her thought process was a little more organized. Padmini denied experiencing hallucinations, denied feeling depressed, denied feeling anxious, denied feeling hopeless or worthless, and denied wishing or thinking of suicide. Padmini denied violent thoughts or thoughts of homicide. There were no specific paranoid delusions, ongoing OCD spectrum (germ/contamination phobia Assessment: Padmini is a 42-year-old single White female who has been on the inpatient psychiatric unit since 2016. Padmini continue to show slow progress. I believe her diagnosis to be: Schizoaffective disorder or schizophrenia. She has not been experiencing any thoughts of suicide or violence. She continues to have residual symptoms of schizophrenia but I don't see her as a risk to self or others. Treatment Plan Update: Discharge Home Discharge HBIPS - Tobacco Use Treatment Offered Post DC Medications Offered: Not Applicable Post DC Tobacco Treatment Plan: Not Applicable - EtOH/Drug Use D/O Treatment Offered Post DC Medications Offered: NA-No EtOH/Drug Use D/O Post DC EtOH/SubAbuse TX Plan: NA-No EtOH/Drug Use D/O Metabolic Screening - Screen if on a Neuroleptic Medication - Metabolic screening should include: - Blood Pressure, BMI, Glucose or Hgb A1c, & a - Lipid profile from within the past 365 days. Metabolic Screening () Not Applicable, patient not on a neuroleptic. OR () Patient on a neuroleptic(s) . Enter below results for Hemoglobin A1C, and lipid panel if obtained during the last 365 days. BMI: 22.900 Blood Pressure: 141/79 Laboratory Results From [facility] (If applicable): Lab Amylase < 30 U/L L 12/31/112017 Cholesterol 146 MG/DL 02/28/172153 Cholesterol/HDL Ratio 2 % 02/28/172153 HDL Cholesterol 67 mg/dL H 02/28/172153 Hemoglobin A1c 5.0 % 06/23/17 1310 LDL Cholesterol, Calc 70 mg/dL 02/28/172153 Triglycerides 45 mg/dL 02/28/172153 Vitals Temperature 97.9 09/26/17 0750 Discharge Instructions General Discharge Information Multiple Neuroleptics: Patient is being cross titrated off olanzapine to just haloperidole Discharge Diet Regular Discharge Activity Normal DC Disposition: Home Referrals Ordered Referrals Provider Referral 10/08/17 For Groups: [[facility]] [facility] [address], [place] [phone] Intake: 10/09/17, at 12:30pm with LEBRON Sharma. Nona from [facility] will provide transportation to and from this intake appointment. She will be at [facility] at 12:15pm. Provider Referral 10/12/17 For Groups: [[facility]] [facility] [address], [place] [phone] Appointment: 10/12/17, at 2:15pm with Dr. Crespo and Dr. Campoverde Provider Referral For Groups: [[facility]] [facility] [phone] Padmini can begin working with [facility] when she has attended her appointment with [facility]. Provider Referral 10/08/17 For Groups: [[facility]] [facility] [address] [place], [place] [phone] Padmini will work with Nona in case management. Nona will provide transportation to her IOP intake on 10/12/17 at . Nona will schedule another appointment with Padmini when she sees her on 10/09/17. Provider Referral 10/17/17 For Groups: [[facility]] [facility] [address], [place] [phone] Medication appointment: 10/17/17, at 1:30pm with Dr. Potter Prescriptions Stop taking the following medications: Linaclotide (Linzess) 145 MCG CAPSULE ORAL DAILY Qty = 30 Carbamazepine (Tegretol) 200 MG TABLET ORAL TWICE DAILY Qty = 28 Carbamazepine (Carbamazepine) 100 MG TAB.CHEW ORAL DAILY Qty = 14 Lamotrigine (Lamictal) 25 MG TABLET ORAL Every night Qty = 28 Risperidone (Risperdal) 3 MG TABLET ORAL Every night Qty = 28 Continue taking these medications: Albuterol Sulfate (Ventolin Hfa) 90 MCG HFA.AER.AD 2 Puff Inhale through mouth EVERY 4-6 HOURS NEEDED as needed for WHEEZING /SHORTNESS OF BREATH Qty = 1 Comments: Last Taken: Time:NOT GIVEN IN THE HOSPITAL. Oxybutynin Chloride (Oxybutynin Chloride) 5 MG TABLET 5 Milligram ORAL 1000,1700,2200 Qty = 1 Comments: Last Taken:10/05/17 Time:0830 Start taking the following new medications: Diclofenac Sodium (Diclofenac Sodium) 75 MG TABLET.DR 75 Milligram ORAL TWICE DAILY Qty = 30 No Refills Comments: Last Taken:10/05/17 Time:0830 Paroxetine HCl (Paxil) 20 MG TABLET 20 Milligram ORAL DAILY Qty = 30 No Refills Comments: Last Taken:10/05/17 Time:0830 Haloperidol (Haloperidol) 5 MG TABLET 5 Milligram ORAL AT BEDTIME Qty = 14 No Refills Comments: Last Taken:10/04/17 Time:2100 LORazepam (Ativan) 1 MG TAB 1 Milligram ORAL AT BEDTIME Qty = 14 No Refills Comments: Last Taken:10/04/17 Time:2100 Haloperidol (Haloperidol) 2 MG TABLET 1 Tablet ORAL AT BEDTIME Qty = 30 No Refills Comments: Last Taken:10/04/17 Time:2100 Copies To: OPS
--- NOTE | 2017-10-05 17:33 | SOCIAL WORKER PROG NOTE PSYCH ---
Social Work Progress Note Progress Note Due to [facility] stating that they would be unable to accept the patient for their IOP due to her insurance, this fiction writer contacted [facility] and scheduled an intake for 10/08/17 at 11:30am. This fiction writer was later contacted by both Bhumika and Lisa Morel expressing concerns about the patient's ability to tolerate the IOP. This fiction writer reviewed this with Dr. Hurtado, who contact [facility], and later determined that the patient would be referred to OPS for an individual/intake appointment as well as medication management. She will continue with [facility] case management as planned. Patient was interested in scheduling an appointment with [facility] to become her primary care provider due to location. She signed an CAROLE for her GFP. 10:55am This fiction writer met with patient. She stated that she was "happy to go home today. " She denied SI/HI/AH/VH and identified a safety plan in which she would contact OPS, take her medications "the way I'm supposed to." She was also informed that she would be provided with warm lines and crisis lines upon discharge today. She was agreeable to using these. While patient had initially considered signing an CAROLE for her father yesterday, she then retracted this and stated that she did not want to do so. This fiction writer re-visited this with the patient who maintained that she was not interested in signing an CAROLE for her father. The following appointments were scheduled. They were reviewed with the patient, who was agreeable to attending them: - GFP: scheduled with [facility] for 10/12/17 at 2:15pm with Dr. Crespo and Dr. Campoverde - OPS: intake with Mikaela on 10/09/17 at 12:30pm - OPS: medication appointment with Dr. Potter on 10/17/17 at 1:30pm - [facility] case management: patient's family caseworker, Nona, will provide transportation to the intake appointment on 10/09/17 at 12:30pm. She will crab picker the patient at her apartment at 12:15pm - [facility] - patient may begin services with them once she has attended the GFP appointment on 10/12/17 -Patient signed a CCT CAROLE, which was submitted - Patient refused any visiting nurse services Faxed Referral(s) 1 Referred To: [facility] - case management Transition of Care Documents sent: Health Summary Faxed to: Care attn: Adelaida Fax #: [phone] Faxed by: Ubaldo Anderson LCSW Date faxed: 10/05/17 Time Faxed: [phone] Faxed Referral(s) 2 Referred To: [facility] Transition of Care Documents sent: Health Summary Faxed to: [facility] Fax #: [phone] Faxed by: Ubaldo Anderson LCSW Date faxed: 10/05/17 Time Faxed: [phone]
--- NOTE | 2017-10-09 14:13 | SOCIAL WORKER PROG NOTE PSYCH ---
Social Work Progress Note Progress Note 2:10pm This typewriter aligner spoke with Julienne Mae at [facility] to inform that the patient was discharged.
== END 2017-10-05 18:20 | DRG 885 ==
LOC: ERH 11:25 → CP SOUTH 07-18 17:15 → ERHI 07-18 17:15 → ENTRNSPT 07-18 20:59 → CP SOUTH 07-18 21:11 → CMPTRNSPT 07-18 21:17 → CP SOUTH 07-18 21:18 → ENRESERV 07-18 23:59 → CP SOUTH 07-31 10:28
PROVIDERS: Internal Medicine; Physician Assistant; Physician Assistant Medical; Psychiatry & Neurology Psychiatry
DX: F25.9 Schizoaffective disorder, unspecified (principal)
CPT/HCPCS: 36415; 73560-RT; 80307; 81003; 81025; 82436; 87086; 96372; G0463; G0480; J0515; J1200; J1630; J3490